=== PATIENT | male | born 1960 | race Hispanic/Latino ===

== ENCOUNTER → 2017-10-27 | Outpatient (CLI) | payer OTHER ==
[~2017-10-27] MED LIST: ASPIRIN ENTERI325 MG PO; ATROVENT HFA12.9 GM; ATROVENT HFA12.9 GM INH; CARVEDILOL12.5 MG PO; CATAPRES0.3 MG PO; CLONIDINE HCL0.3 MG PO; COREG3.125 MG PO; DIGOXIN125 MCG PO; DOXYCYCLINE HY100 M3 PO; FLOMAX0.4 MG PO; FLONASE16 GM; HYDRALAZINE HCL25 MG PO; IMDUR30 MG PO; ISOSORBIDE MONO30 MG PO; LASIX20 MG PO; LIPITOR40 MG PO; LISINOPRIL10 MG PO; METOPROLOL TART50 MG PO; MUCINEX600 MG PO; NITROGLYCERIN0.4 MG SL; NITROSTAT0.4 MG SL; NORCO 10MG-325MG1 EA PO; NORVASC10 MG PO; OMEPRAZOLE40 MG PO; PAXIL10 MG PO; PEPCID20 MG PO; PLAVIX75 MG PO; POTASSIUM CHLO20 ME1 PO; RANEXA500 MG PO; SENNA-DOCUSATE1 EACH PO; SINGULAIR10 MG PO; TESSALON PERLE100 MG PO; XANAX2 MG PO; XOPENEX0.31 MG/3 INH
== END ==
LOC: DX 13:27 → EDSTATUS 10-28 11:00
PROVIDERS: ATTEND Internal Medicine Gastroenterology
DX: Z01.818 Encounter for other preprocedural examination (principal); Z53.8 Procedure and treatment not carried out for other reasons; Z12.11 Encounter for screening for malignant neoplasm of colon; I10 Essential (primary) hypertension; B18.2 Chronic viral hepatitis C; E66.9 Obesity, unspecified; Z71.3 Dietary counseling and surveillance; Z86.010 Personal history of colon polyps
CPT/HCPCS: 93005

== ENCOUNTER 2018-10-22 11:52 | Inpatient (IN) | payer MEDICARE, OTHER ==
[~2018-10-22] VITALS: Ht 162.6 cm; Wt 93.9 kg
--- OUTSIDE RECORDS SUMMARY | 2018-10-22 11:56 | XMS REPORT | Clinical Summary ---
Author Author [facility] Organization [facility] Address Unknown Phone Unavailable Care Team Providers Care Product Safety Test Engineer Name Role Phone PCP Unavailable Allergies Comments Active Allergy Reactions Severity Noted Date No Known Drug Allergies 06/18/2009 Medications End Date Status Medication Sig Dispensed Refills Start Date Active Alprazolam 2 mg Take 3 mg by 0 disintegrating tablet mouth 2 times daily as needed for Anxiety. Active fenofibrate (LOFIBRA) 160 Take 160 mg 0 mg tablet by mouth daily. Active furosemide (LASIX) 40 mg Take 40 mg by 0 tablet mouth 2 times daily. Active sucralfate (CARAFATE) 1 Take 1 g by 0 gram tablet mouth 4 times daily. Active budesonide-formoterol Inhale 2 0 (SYMBICORT) 160-4.5 Puffs by mcg/actuation inhaler mouth 2 times daily. Active carisoprodol 350 mg Take 350 mg 0 tablet by mouth 2 times daily. Active nitroGLYCERIN (NITROSTAT) Dissolve 1 30 tablet 0 0.4 mg sublingual tablet under 8 tabletIndications: the tongue Precordial chest pain every 5 minutes as needed, up to 3 times. If chest pain persists, call 911. 01/05/2018 Discontinued carvedilol (COREG) 25 mg Take 25 mg by 0 tablet mouth 2 times daily (with meals). 01/05/2018 Discontinued lisinopril (PRINIVIL, Take 20 mg by 0 ZESTRIL) 20 mg tablet mouth daily. 01/05/2018 Discontinued hydrALAZINE (APRESOLINE) Take 50 mg by 0 50 mg tablet mouth 3 times daily. 01/05/2018 Discontinued clopidogrel (PLAVIX) 75 Take 75 mg by 0 mg tablet mouth daily. 01/05/2018 Discontinued atorvastatin (LIPITOR) 80 Take 80 mg by 0 mg tablet mouth at bedtime nightly. 01/05/2018 Discontinued isosorbide mononitrate Take 60 mg by 0 (IMDUR) 60 mg extended mouth daily. release tablet 01/05/2018 Discontinued cloNIDine HCl (CATAPRES) Take 0.1 mg 0 0.1 mg tablet by mouth 2 times daily. 01/05/2018 Discontinued digoxin (LANOXIN) 250 mcg Take 250 mcg 0 tablet by mouth daily Take 1/2 tab by mouth daily . 01/05/2018 Discontinued amLODIPine (NORVASC) 10 Take 10 mg by 0 mg tablet mouth daily. 04/06/2018 aspirin (ASPIRIN) 81 mg Chew and 90 tablet 0 chewable swallow 1 8 tabletIndications: tablet by Precordial chest pain mouth daily for 90 days. 04/05/2018 atorvastatin (LIPITOR) 80 Take 1 tablet 90 tablet 0 mg tabletIndications: by mouth at 8 Precordial chest pain bedtime nightly for 90 days. 04/05/2018 carvedilol (COREG) 25 mg Take 1 tablet 180 tablet 0 tabletIndications: by mouth 2 8 Precordial chest pain times daily (with meals) for 90 days. 04/05/2018 clopidogrel (PLAVIX) 75 Take 1 tablet 90 tablet 0 mg tabletIndications: by mouth 8 Precordial chest pain daily for 90 days. 02/04/2018 digoxin (LANOXIN) 250 mcg Take 0.5 15 tablet 0 tabletIndications: tablets by 8 Precordial chest pain mouth daily for 30 days Take 1/2 tab by mouth daily . 04/05/2018 hydrALAZINE (APRESOLINE) Take 1 tablet 270 tablet 0 50 mg tabletIndications: by mouth 3 8 Precordial chest pain times daily for 90 days. 04/05/2018 isosorbide mononitrate Take 1 tablet 90 tablet 0 (IMDUR) 60 mg extended by mouth 8 release daily for 90 tabletIndications: days. Precordial chest pain 01/05/2018 Discontinued nitroGLYCERIN (NITROSTAT) Dissolve 1 100 tablet 1 0.4 mg sublingual tablet under 8 tabletIndications: the tongue Precordial chest pain every 5 minutes as needed, up to 3 times. If chest pain persists, call 911. 04/05/2018 lisinopril (ZESTRIL) 2.5 Take 1 tablet 90 tablet 0 201 mg tabletIndications: by mouth 8 Precordial chest pain daily for 90 days. 04/05/2018 ranolazine (RANEXA) 500 Take 1 tablet 180 tablet 0 201 mg extended release by mouth 2 8 tabletIndications: times daily Precordial chest pain for 90 days. 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 Cardiomyopathy 01/02/2018 Precordial chest pain Right upper quadrant abdominal pain Unstable angina Anxiety Essential hypertension Encounters Care Team Description Date Type Specialty Luigi Quintana 01/05/2018 Orders Only Cardiology Jus Chritsianson MD Medrano, Vanessa N, Physician Precordial chest pain (Primary Dx); Right upper quadrant abdominal pain; Unstable angina; Coronary artery disease involving [place] coronary artery of [place] heart with angina pectoris 01/02/2018 Emergency - 01/05/2018 after 10/21/2017 Immunizations Name Dates Previously Given Next Due Influenza Vaccine 01/03/2018 (Deferred: Other - Outside flu season) PNEUMOCOCCAL 23-VALPS 01/03/2018 (Deferred: Patient Refused) VACCINE 25 MCG/0.5 ML INJECTION Social History Date Tobacco Use Types Packs/Day Years Used Former Smoker Alcohol Use Drinks/Week oz/Week Comments Yes Sex Assigned at Date Recorded Not on file Industry Job Start Date Occupation Not on file Not on file Not on file Travel End Travel History Travel Start No recent travel history available. Last Filed Vital Signs Time Taken Vital Sign Reading 01/05/2018 11:08 AM CDT Blood Pressure 151/109 01/05/2018 11:08 AM CDT Pulse 63 01/05/2018 11:08 AM CDT Temperature 36.6 C (97.9 F) 01/05/2018 11:08 AM CDT Respiratory Rate 13 01/05/2018 7:43 AM CDT Oxygen Saturation 98% - Inhaled Oxygen - Concentration 01/05/2018 3:25 AM CDT Weight 83.7 kg (184 lb 8 oz) 01/03/2018 12:44 AM CDT Height 162.6 cm (5' 4") 01/03/2018 12:44 AM CDT Body Mass Index 31.67 Plan of Treatment Health Maintenance Due Date Last Done Comments Colorectal Cancer Scrn 2010 Annual (FIT/FOBT) Age 50 to 75 IMM Influenza Seasonal 05/10/2018May to October (>/=19 yrs) CORONARY ARTERY DISEASE 01/04/2019 01/04/2018, 06/18/2009 AGE 18 AND UP Procedures Comments Procedure Name Priority Date/Time Associated Diagnosis PTT Routine 01/05/2018 10:20 AM CDT TRANSTHORACIC ECHO (TTE) 01/05/2018 8:42 AM CDT CONSULT CLINICAL CASE Routine 01/05/2018 MANAGEMENT (RN/SW) 8:24 AM CDT PTT Routine 01/05/2018 1:30 AM CDT MAGNESIUM Routine 01/05/2018 1:30 AM CDT BASIC METABOLIC PANEL Routine 01/05/2018 1:30 AM CDT CBC/DIFF Routine 01/05/2018 1:30 AM CDT PTT Routine 01/04/2018 6:40 PM CDT MAGNESIUM STAT 01/04/2018 6:40 PM CDT BASIC METABOLIC PANEL STAT 01/04/2018 6:40 PM CDT PTT Routine 01/04/2018 11:00 AM CDT CBC/DIFF Routine 01/04/2018 4:45 AM CDT TSH Routine 01/04/2018 4:45 AM CDT HEMOGLOBIN A1C Routine 01/04/2018 4:45 AM CDT LIPID PROFILE Routine 01/04/2018 4:45 AM CDT MAGNESIUM Routine 01/04/2018 4:45 AM CDT BASIC METABOLIC PANEL Routine 01/04/2018 4:45 AM CDT PTT Routine 01/04/2018 4:45 AM CDT 12 LEAD EKG Routine 01/04/2018 3:24 AM CDT PTT Routine 01/03/2018 5:40 PM CDT MAGNESIUM Routine 01/03/2018 5:40 PM CDT BASIC METABOLIC PANEL Routine 01/03/2018 5:40 PM CDT URINE DRUG SCREEN Routine 01/03/2018 11:20 AM CDT PTT Routine 01/03/2018 11:20 AM CDT INFUSION PUMP STAT 01/03/2018 10:26 AM CDT TROPONIN I STAT 01/03/2018 8:32 AM CDT 12 LEAD EKG Routine 01/03/2018 8:29 AM CDT TROPONIN I Routine 01/03/2018 2:00 AM CDT MAGNESIUM Routine 01/03/2018 2:00 AM CDT BASIC METABOLIC PANEL Routine 01/03/2018 2:00 AM CDT 12 LEAD EKG Routine 01/02/2018 8:45 PM CDT TROPONIN I POC Routine 01/02/2018 8:15 PM CDT U/S ABDOMEN LIMITED STAT 01/02/2018 Right upper quadrant 7:25 PM CDT abdominal pain UA CHEMISTRIES STAT 01/02/2018 6:06 PM CDT XRAY CHEST 1 VIEW STAT 01/02/2018 Precordial chest pain 5:17 PM CDT 12 LEAD EKG Routine 01/02/2018 5:16 PM CDT POCT BNP (BRAIN Routine 01/02/2018 NATRIURETIC PEPTIDE) 5:13 PM CDT CBC/DIFF Routine 01/02/2018 5:00 PM CDT TROPONIN I STAT 01/02/2018 5:00 PM CDT BMP POC Routine 01/02/2018 4:51 PM CDT TROPONIN I POC Routine 01/02/2018 4:48 PM CDT DIGOXIN Routine 01/02/2018 4:45 PM CDT CBC/DIFF Routine 01/02/2018 4:45 PM CDT LIPASE STAT 01/02/2018 4:45 PM CDT LIVER PROFILE STAT 01/02/2018 4:45 PM CDT 12 LEAD EKG Routine 01/02/2018 4:35 PM CDT after 10/21/2017 Results * PTT (01/05/2018 10:20 AM CDT) Only the most recent of 7 results within the time period is included. PTT 86.6 (H) 23.6 - 36.4 Seconds BT MAIN-STATION 3 Specimen Blood Performing Organization Address City/State/Zipcode Phone Number MISYS BT MAIN-STATION 3 * TRANSTHORACIC ECHO (TTE) (01/05/2018 8:42 AM CDT) TRANSTHORACIC Transthoracic SMS ECHO (TTE) Echo Report MARYA MILLAN Age:57 Gender: M :1960 Exam Date: 01/05/2018 08:42 Exam Location: [facility] Echo Ordering Phys: MARKOS BOND ([email or web address]/[email or web address]) Referring Phys:[id number], SLIME Reading Phys:Win Blanco MD Fellow Phys: Fellow Phys: Water Pollution Specialist: Luigi Quintana Reason For Exam: Indications: Cardiomyopathy ICD-9 Codes: I42.3 Exam Type: TRANSTHORACIC ECHO (TTE) Procedure CPT:20861 Addtional CPT: Ht (in): 64 BSA: 1.97HR: 65 Rhythm: Paced rhythm Wt (lb): 184BP: 149/ 101 Technical Quality: Technically difficult study History: evaluate cardiomyopathy MEASUREMENTS(Male / Female) Normal Values 2D ECHO LV Diastolic Diameter PLAX6.4 cm 4.2 - 5.9 / 3.9 - 5.3 cm LV Systolic Diameter PLAX 6.1 cm 2.1 - 4.0 cm LV Fractional Shortening PLAX 4.9 % 25 - 46% IVS Diastolic Thickness 1.7 cm LVPW Diastolic Thickness1 .7 cm LV Relative Wall Thickness0.53 LVOT Diameter 2.4 cm Aortic Root Diameter 3.3 cm LA Volume 117 cm 18 - 58 / 22 - 52 cm LA Volume Index 59.5 cm/m 16 - 28 cm/m RA Area 22.6 cm DOPPLER LVOT Peak Velocity 60.2 cm/s LVOT Peak Gradient 1.4 mmHg LVOT Mean Velocity 35 cm/s LVOT Mean Gradient 0.49 mmHg LVOT Velocity Time Integral 9.9 cm LVOT Stroke Volume 45 cm Mitral E Point Velocity 64.5 cm/s LV E' Lateral Velocity 1.8 cm/s Mitral E to LV E' Lateral Ratio 35 FINDINGS Left Ventricle [place] is foreshortened. Severe left ventricular dilatation. Left ventricular wall thickness severely increased. Severely reduced global left ventricular systolic function. Left ventricular ejection fraction is less than 20%. Severe global hypokinesis. Impaired relaxation, increased LV filling pressures. False chordae in the left ventricle (normal variant). Prominent left ventricular trabeculations. Due to foreshortening of the apex, cannot evaluate for LV thrombus. Right Ventricle Right ventricular dilatation. Severely reduced right ventricular global systolic function. Device lead in the right ventricular cavity. Right Atrium Right atrial dilatation. Device lead in the right atrial cavity. Left Atrium Severe left atrial dilatation. 60 cc/m2. IAS Mitral Valve Some tenting of the MV leaflets due LV dilation. Mild mitral regurgitation. Aortic Valve The aortic valve is trileaflet and opens well. Tricuspid Valve Grossly normal tricuspid valve. Insufficient TR jet to estimate pulmonary artery systolic pressure. Pulmonic Valve Structurally normal pulmonic valve. Mild pulmonic regurgitation (normal variant). Pericardium Trace pericardial effusion. Aorta Normal size aortic root. IVC IVC is normal in size. RA pressure is 5-10 mmHg. CONCLUSIONS Compared to the study report from 2009, the LVEF is now even more reduced and RV function is now more reduced as well. 1. [place] is foreshortened. Severe left ventricular dilatation. Left ventricular wall thickness severely increased. Severely reduced global left ventricular systolic function. Left ventricular ejection fraction is less than 20%. Severe global hypokinesis. Impaired relaxation, increased LV filling pressures. False chordae in the left ventricle (normal variant). Prominent left ventricular trabeculations. Due to foreshortening of the apex, cannot evaluate for LV thrombus. 2. Right ventricular dilatation. Severely reduced right ventricular global systolic function. Device lead in the right ventricular cavity. 3. Biatrial dilation. 4. Mild MR and OK. 5. Trace pericardial effusion. Win Blanco MD Edited by:Win Blanco MD (Electronically Signed) Final Date:05 Jan 2018 14:52 2D ECHO LV Diastolic Diameter PLAX6.4 cm 4.2 - 5.9 / 3.9 - 5.3 cm LV Systolic Diameter PLAX 6.1 cm 2.1 - 4.0 cm LV Fractional Shortening PLAX 4.9 % 25 - 46% IVS Diastolic Thickness 1.7 cm LVPW Diastolic Thickness1 .7 cm LV Relative Wall Thickness0.53 LVOT Diameter 2.4 cm Aortic Root Diameter 3.3 cm LA Volume 117 cm 18 - 58 / 22 - 52 cm LA Volume Index 59.5 cm/m 16 - 28 cm/m RA Area 22.6 cm DOPPLER LVOT Peak Velocity 60.2 cm/s LVOT Peak Gradient 1.4 mmHg LVOT Mean Velocity 35 cm/s LVOT Mean Gradient 0.49 mmHg LVOT Velocity Time Integral 9.9 cm LVOT Stroke Volume 45 cm Mitral E Point Velocity 64.5 cm/s LV E' Lateral Velocity 1.8 cm/s Mitral E to LV E' Lateral Ratio 35 Performing Organization Address City/[facility] HospitalBluFrog Path Lab Solutionsmn Phone Number SMS * MAGNESIUM (01/05/2018 1:30 AM CDT) Only the most recent of 5 results within the time period is included. Magnesium 2.1 1.9 - 2.7 mg/dL BT MAIN-STATION 1 Performing Organization Address City/[facility] Phone Number MISYS BT MAIN-STATION 1 * CBC/DIFF (01/05/2018 1:30 AM CDT) Only the most recent of 4 results within the time period is included. WBC 6.2 4.5 - 12.0 K/uL BT MAIN-STATION 2 RBC 5.23 4.60 - 6.20 M/uL BT MAIN-STATION 2 Hemoglobin 15.9 14.0 - 18.0 g/dL BT MAIN-STATION 2 Hematocrit 48.2 40.0 - 54.0 % BT MAIN-STATION 2 MCV 92 82 - 92 fL BT MAIN-STATION 2 MCH 30.4 27.0 - 31.0 pg BT MAIN-STATION 2 MCHC 33.0 32.0 - 36.0 g/dL BT MAIN-STATION 2 RDW 46.2 (H) 35.1 - 43.9 fL BT MAIN-STATION 2 Platelet 266 150 - 400 K/uL BT MAIN-STATION 2 Mean Platelet 10.8 9.4 - 12.4 fL BT MAIN-STATION Volume 2 Percent NRBC 0.0 BT MAIN-STATION 2 Absolute NRBC 0.00 BT MAIN-STATION 2 Neutrophil 58.2 34.0 - 67.9 % BT MAIN-STATION 2 Lymphocyte 24.5 21.8 - 50.0 % BT MAIN-STATION 2 Monocyte 12.8 (H) 5.3 - 12.0 % BT MAIN-STATION 2 Eosinophil 3.4 0.8 - 5.0 % BT MAIN-STATION 2 Basophil 0.8 0.2 - 1.2 % BT MAIN-STATION 2 Pct Immat Gran 0.3 0.0 - 0.5 BT MAIN-STATION 2 Neutrophil, Abs 3.63 1.78 - 5.36 K/uL BT MAIN-STATION 2 Lymphocyte, Abs 1.53 1.32 - 3.57 K/uL BT MAIN-STATION 2 Monocyte, Abs 0.80 0.30 - 0.82 K/uL BT MAIN-STATION 2 Eosinophil, Abs 0.21 0.04 - 0.54 K/uL BT MAIN-STATION 2 Basophil, Abs 0.05 0.01 - 0.08 K/uL BT MAIN-STATION 2 Absol Immat 0.02 0.00 - 0.03 K/uL BT MAIN-STATION Gran 2 Performing Organization Address City/State/Zipcode Phone Number MISYS BT MAIN-STATION 2 * BASIC METABOLIC PANEL (01/05/2018 1:30 AM CDT) Only the most recent of 5 results within the time period is included. [facility] Signature CO2 27 21 - 31 mmol/L BT MAIN-STATION 1 Chloride 101 98 - 107 mmol/L BT MAIN-STATION 1 Potassium 3.9 3.5 - 5.1 mmol/L BT MAIN-STATION 1 Sodium 138 136 - 145 mmol/L BT MAIN-STATION 1 Glucose 93 70 - 110 mg/dL BT MAIN-STATION 1 Urea Nitrogen 29 (H) 7 - 25 mg/dL BT MAIN-STATION 1 Creatinine 1.60 (H) 0.7 - 1.3 mg/dL BT MAIN-STATION 1 Anion Gap 10 BT MAIN-STATION 1 Calcium 9.2 8.6 - 10.3 mg/dL BT MAIN-STATION 1 GFR, Estimated 45 mL/min/1.73 m2 BT MAIN-STATION 1 GFR, Estim, 54 mL/min/1.73 m2 BT MAIN-STATION Afr-Am 1 Performing Organization Address [facility]n Phone Number MISYS BT MAIN-STATION 1 * HEMOGLOBIN A1C (01/04/2018 4:45 AM CDT) Hemoglobin A1c 5.7 4.3 - 6.1 % BT DIAGNOSTIC IMMUNOLOGY Est Average 116.9 mg/dL BT DIAGNOSTIC Gluc IMMUNOLOGY Specimen Blood Performing Organization Address [facility] Phone Number MISYS BT DIAGNOSTIC IMMUNOLOGY * TSH (01/04/2018 4:45 AM CDT) TSH 1.36 0.57 - 3.74 uIU/mL BT MAIN-STATION 1 Specimen Blood Performing Organization Address [facility] Phone Number MISYS BT MAIN-STATION 1 * LIPID PROFILE (01/04/2018 4:45 AM CDT) Cholesterol 133 mg/dL BT MAIN-STATION Comment: 1 REFERENCE RANGE: Desirable: <200 mg/dL Borderline: 200-240 mg/dL High Risk: >240 mg/dL Triglyceride 149 <150 mg/dL BT MAIN-STATION Comment: 1 REFERENCE RANGE: Normal: <150 mg/dL Borderline High: 150-199 mg/dL High: 200-499 mg/dL Very High: >cx=498 mg/dL HDL 47 mg/dL BT MAIN-STATION Comment: 1 Increased CHD risk: <40 mg/dL Decreased CHD risk: >60 mg/dL LDL 56 mg/dL BT MAIN-STATION Comment: 1 REFERENCE RANGE: Optimal: <100 mg/dL Near Optimal: 100-129 mg/dL Borderline High: 130-159 mg/dL High: 160-189 mg/dL Very High: >ph=467 mg/dL Specimen Blood Performing Organization Address [facility] Phone Number MISYS BT MAIN-STATION 1 * 12 LEAD EKG (01/04/2018 3:24 AM CDT) 12 LEAD EKG FOR [facility] Test Date:2018-01-04 Pat Name: MARYA MILLAN Department: Room: Gender: Combine Inspector: [id number] :1960-1 08-30 Requested By: Order Number: Marcos sharma MD: Lilliam Burch M.D. Measurements Intervals Ola Rate: 68 P:45 OK: 153 QRS: 255 QRSD: 162 T: 75 QT: 466 QTc:499 Interpretive Statements ELECTRONIC VENTRICULAR PACEMAKER ABNORMAL RHYTHM ECG Electronically Signed On 01-04-18 06:16:53 CDT by Lilliam Burch M.D. Performing Organization Address [facility]code Phone Number SMS * URINE DRUG SCREEN (01/03/2018 11:20 AM CDT) Amphetamine Negative NEG BT MAIN-STATION Comment: 1 Calibrated Standard: D-Methamphetamine Positive if urine level >yp=6518 ng/mL Test performed on [id number] using EMIT Immunoassay Barbiturate Negative NEG BT MAIN-STATION Comment: 1 Calibrated Standard: Secobarbital Positive if urine level is >ea=067 ng/mL Test performed on [id number] using EMIT Immunoassay Benzodiazepine Positive (A) NEG BT MAIN-STATION Comment: 1 Calibrated Standard: Lormethazepam Positive if urine level is >gg=611 ng/mL Test performed on [id number] using EMIT Immunoassay Cannabinoid Negative NEG BT MAIN-STATION Comment: 1 Calibrated Standard: 11 nor-delta(9)-THC carboxylic a Positive if urine level >or=50 Test performed on [id number] using EMIT Immunoassay Cocaine Negative NEG BT MAIN-STATION Comment: 1 Calibrated Standard: Benzoylecgonine Positive if urine level >zu=191 Test performed on [id number] using EMIT Immunoassay Opiate, Ur Positive (A) NEG BT MAIN-STATION Comment: 1 Calibrated Standard: Morphine Positive if urine level >jg=149 Test performed on [id number] using EMIT Immunoassay PCP Negative NEG BT MAIN-STATION Comment: 1 Calibrated Standard: Phencyclidine Positive if urine level >or=25 Test performed on [id number] using EMIT Immunoassay Urine Toxicology Screen results are to be used only for Medical purposes. Specimen Urine Performing Organization Address City/[facility]code Phone Number MISYS BT MAIN-STATION 1 * TROPONIN I (01/03/2018 8:32 AM CDT) Only the most recent of 3 results within the time period is included. Troponin I 0.06 (H) <0.04 ng/mL BT MAIN-STATION 1 Specimen Blood Performing Organization Address [facility] Phone Number MISYS BT MAIN-STATION 1 * 12 LEAD EKG (01/03/2018 8:29 AM CDT) 12 LEAD EKG FOR [facility] Test Date:2018-01-03 Pat Name: MARYA MILLAN Department: Room: Gender: Combine Inspector: LILLIEJU[place] [id number] :1959-08 Requested By: Order Number: Marcos sharma MD: Lilliam Burch M.D. Measurements Intervals Ola Rate: 66 P:48 OK: 156 QRS: 249 QRSD: 160 T: 71 QT: 491 QTc:515 Interpretive Statements ELECTRONIC VENTRICULAR PACEMAKER ABNORMAL RHYTHM ECG Electronically Signed On 01-03-18 12:06:36 CDT by Lilliam Burch M.D. Performing Organization Address [facility] Phone Number SMS * 12 LEAD EKG (01/02/2018 8:45 PM CDT) 12 LEAD EKG FOR [facility] Test Date:2018-01-02 Pat Name: MARYA MILLAN Department: Room: Gender: M Combine Inspector: [id number] :1959-08 Requested By: Order Number: Marcos sharma MD: jose jimenez Measurements Intervals Ola Rate: 77 P:66 OK: 156 QRS: -65 QRSD: 149 T: 69 QT: 449 QTc:511 Interpretive Statements ELECTRONIC VENTRICULAR PACEMAKER ABNORMAL RHYTHM ECG Electronically Signed On 01-05-18 16:21:40 CDT by jose jimenez Performing Organization Address [facility] Phone Number [facility] * TROPONIN I POC (01/02/2018 8:15 PM CDT) Only the most recent of 2 results within the time period is included. Troponin POC 0.06 0.00 - 0.08 ng/mL BT MAIN-STATION 1 Performing Organization Address City/State/Zipcode Phone Number MISYS BT MAIN-STATION 1 * U/S ABDOMEN LIMITED (01/02/2018 7:25 PM CDT) Impressions Performed At IMPRESSION: SMS 1. A 0.7 cm stone in the upper pole of the kidney. No hydronephrosis. 2. Increased hepatic echogenicity most commonly seen in hepatic steatosis 3. Mild gallbladder adenomyomatosis. If the report is "FINALIZED" it indicates that the attending/staff radiologist has reviewed the images and agrees with the resident's interpretation. Dictated By: Jaime Ashraf MD, 01/02/2018 7:36 PM I have reviewed the study and agree with the findings in this report. Signed By: Rivka Medellin MD, 01/02/2018 11:10 PM Narrative Performed At EXAM: Right Upper Quadrant Ultrasound SMS INDICATION: right upper qudarant pain COMPARISON: None. TECHNIQUE: Transverse and longitudinal images of the right upper abdomen were obtained. FINDINGS: Liver: Size: 15.5 cm in the right midclavicular line, normal Appearance: Increased echogenicity, smooth contour Mass: No focal masses Gallbladder: Stones/Sludge: None Wall: 0.2 cm Appearance: No pericholecystic fluid or hydrops. Echogenic ring down artifacts of the proximal wall. Sonographic Iraheta's Sign: Negative Bile Ducts: Intrahepatic Ducts: No dilatation Extrahepatic Ducts: Common bile duct measures 0.4 cm, no dilatation Pancreas: Incompletely visualized due to overlying bowel gas, but no abnormality identified involving the visualized portions of the pancreas. Right Kidney: Size: (0.5 cm Echogenicity: Normal Parenchymal thickness: Normal Collecting system: No hydronephrosis Stones: 0.7 x 0.7 x 0.7 cm shadowing echogenic focus in the upper pole with twinkle artifact Cyst/Mass: None Vessels: Aorta: Visualized portions are normal Inferior Vena Cava: Visualized portions are normal Main Portal Vein: 1 cm, normal size with hepatopetal flow. Free Fluid: No ascites or pleural effusion Procedure Note Interface, Rad/Mammog In - 01/02/2018 11:15 PM CDT EXAM: Right Upper Quadrant Ultrasound INDICATION: right upper qudarant pain COMPARISON: None. TECHNIQUE: Transverse and longitudinal images of the right upper abdomen were obtained. FINDINGS: Liver: Size: 15.5 cm in the right midclavicular line, normal Appearance: Increased echogenicity, smooth contour Mass: No focal masses Gallbladder: Stones/Sludge: None Wall: 0.2 cm Appearance: No pericholecystic fluid or hydrops. Echogenic ring down artifacts of the proximal wall. Sonographic Iraheta's Sign: Negative Bile Ducts: Intrahepatic Ducts: No dilatation Extrahepatic Ducts: Common bile duct measures 0.4 cm, no dilatation Pancreas: Incompletely visualized due to overlying bowel gas, but no abnormality identified involving the visualized portions of the pancreas. Right Kidney: Size: (0.5 cm Echogenicity: Normal Parenchymal thickness: Normal Collecting system: No hydronephrosis Stones: 0.7 x 0.7 x 0.7 cm shadowing echogenic focus in the upper pole with twinkle artifact Cyst/Mass: None Vessels: Aorta: Visualized portions are normal Inferior Vena Cava: Visualized portions are normal Main Portal Vein: 1 cm, normal size with hepatopetal flow. Free Fluid: No ascites or pleural effusion IMPRESSION IMPRESSION: 1. A 0.7 cm stone in the upper pole of the kidney. No hydronephrosis. 2. Increased hepatic echogenicity most commonly seen in hepatic steatosis 3. Mild gallbladder adenomyomatosis. If the report is "FINALIZED" it indicates that the attending/staff radiologist has reviewed the images and agrees with the resident's interpretation. Dictated By: Jaime Ashraf MD, 01/02/2018 7:36 PM I have reviewed the study and agree with the findings in this report. Signed By: Rivka Medellin MD, 01/02/2018 11:10 PM Performing Organization Address City/State/Zipcode Phone Number SMS * UA CHEMISTRIES (01/02/2018 6:06 PM CDT) Color Yellow BT MAIN-STATION 3 Clarity Clear BT MAIN-STATION 3 Spec Freeman 1.015 1.001 - 1.035 BT MAIN-STATION 3 pH 7.0 5 - 8 BT MAIN-STATION 3 Protein 2+ (A) NEG BT MAIN-STATION 3 Glucose Negative NEG BT MAIN-STATION 3 Ketone Negative NEG BT MAIN-STATION 3 Bilirubin Negative NEG BT MAIN-STATION 3 Nitrate Negative NEG BT MAIN-STATION 3 Urobilinogen <1.0 0.2 - 1.0 EU/dL BT MAIN-STATION 3 Leukocyte Negative NEG BT MAIN-STATION 3 Blood Negative NEG BT MAIN-STATION 3 RBC <1 0 - 4 /HPF BT MAIN-STATION 3 Mucous Present BT MAIN-STATION 3 Specimen Urine Performing Organization Address City/State[facility] Phone Number [facility] BT [facility] 3 * XRAY CHEST 1 VIEW (01/02/2018 5:17 PM CDT) Impressions Performed At IMPRESSION: SMS 1.Mild enlargement of cardiac silhouette. 2.Left retrocardiac opacity could represent atelectasis. If the report is "FINALIZED" it indicates that the attending/staff radiologist has reviewed the images and agrees with the resident's interpretation. Dictated By: Radha Car MD, 01/02/2018 7:25 PM I have reviewed the study and agree with the findings in this report. Signed By: Rivka Medellin MD, 01/02/2018 9:41 PM Narrative Performed At EXAM: Single AP view of the chest (Shock room). SMS COMPARISON: Chest radiograph 06/17/2009 INDICATION:chest pain FINDINGS: Single AP view of the chest. Examination is limited by AP technique. Lines/tubes: Left chest wall 3-lead cardiac device with leads project over coronary sinus, right ventricle, and left ventricle. The visualized bones and soft tissues appear unremarkable. Procedure Note Interface, Rad/Mammog In - 01/02/2018 9:46 PM CDT EXAM: Single AP view of the chest (Shock room). COMPARISON: Chest radiograph 06/17/2009 INDICATION: chest pain FINDINGS: Single AP view of the chest. Examination is limited by AP technique. Lines/tubes: Left chest wall 3-lead cardiac device with leads project over coronary sinus, right ventricle, and left ventricle. The visualized bones and soft tissues appear unremarkable. IMPRESSION IMPRESSION: 1. Mild enlargement of cardiac silhouette. 2. Left retrocardiac opacity could represent atelectasis. If the report is "FINALIZED" it indicates that the attending/staff radiologist has reviewed the images and agrees with the resident's interpretation. Dictated By: Radha Car MD, 01/02/2018 7:25 PM I have reviewed the study and agree with the findings in this report. Signed By: Rivka Medellin MD, 01/02/2018 9:41 PM Performing Organization Address City/State[facility] Phone Number SMS * 12 LEAD EKG (01/02/2018 5:16 PM CDT) 12 LEAD EKG FOR [facility] Test Date:2018-01-02 Pat Name: MARYA MILLAN Department: Room: Gender: M Combine Inspector: [id number] :1960-1 08-30 Requested By: Order Number: Marcos sharma MD: Markos Bond Measurements Intervals Ola Rate: 70 P:49 OK: 196 QRS: 6 QRSD: 133 T: -87 QT: 467 QTc:505 Interpretive Statements SINUS RHYTHM POSSIBLE LEFT ATRIAL ENLARGEMENT INTRAVENTRICULAR CONDUCTION DELAY LATERAL MYOCARDIAL INFARCTION, OF INDETERMINATE AGE Electronically Signed On 01-02-18 18:08:23 CDT by Markos Bond Performing Organization Address City/[facility] Phone Number [facility] * POCT BNP (BRAIN NATRIURETIC PEPTIDE) (01/02/2018 5:13 PM CDT) B Natr Pept POC 590 (H) 0 - 100 pg/mL BT MAIN-STATION 1 Performing Organization Address City/[facility] Phone Number MISYS BT MAIN-ST[facility] 1 * BMP POC (01/02/2018 4:51 PM CDT) CO2 POC 28Comment: Physician Notified 21 - 32 mmol/L BT MAIN-STATION 1 Chloride POC 104 98 - 107 mmol/L BT MAIN-STATION 1 Potassium POC 4.0 3.50 - 5.10 mmol/L BT MAIN-STATION 1 Sodium POC 143 136 - 145 mmol/L BT MAIN-STATION 1 Glucose POC 100 74 - 106 mg/dL BT MAIN-STATION 1 Urea Nitrogen 31 (H) 7 - 18 mg/dL BT MAIN-STATION POC 1 Creatinine POC 1.8 (H) 0.6 - 1.3 mg/dL BT MAIN-STATION 1 Calcium Ionized 1.20 1.15 - 1.29 mmol/L BT MAIN-STATION POC 1 Hemoglobin POC 15.3 14.0 - 18.0 g/dL BT MAIN-STATION 1 Hematocrit POC 45.0 40.0 - 54.0 % BT MAIN-STATION 1 GFR, Estimated 39 mL/min/1.73 m2 BT MAIN-STATION 1 GFR, Estim, 47 mL/min/1.73 m2 BT MAIN-STATION Afr-Am 1 Performing Organization Address City/[facility] Phone Number [facility] BT [facility]IN-[facility] 1 * LIVER PROFILE (01/02/2018 4:45 PM CDT) T Protein 6.2 6.0 - 8.3 g/dL BT MAIN-STATION 1 Albumin 3.5 (L) 4.2 - 5.5 g/dL BT MAIN-STATION 1 T Bilirubin 0.4 0.2 - 1.2 mg/dL BT MAIN-STATION 1 Alk Phos 85 34 - 104 U/L BT MAIN-STATION 1 AST 18 13 - 39 U/L BT MAIN-STATION 1 ALT 19 7 - 52 U/L BT MAIN-STATION 1 D Bilirubin 0.1 0.0 - 0.2 mg/dL BT MAIN-STATION 1 Specimen Blood Performing Organization Address City/[facility] Phone Number [facility] BT [facility]IN-ST[facility] 1 * LIPASE (01/02/2018 4:45 PM CDT) Lipase 56 11 - 82 U/L BT MAIN-STATION 1 Specimen Blood Performing Organization Address City/[facility] Phone Number [facility] BT [facility]IN-ST[facility] 1 * DIGOXIN (01/02/2018 4:45 PM CDT) Digoxin <0.3 (L) 0.80 - 2.00 ng/mL BT MAIN-STATION 3 Performing Organization Address City/[facility] Phone Number MISYS BT MAIN-STATION 3 * 12 LEAD EKG (01/02/2018 4:35 PM CDT) 12 LEAD EKG FOR SMS [facility] Test Date:2018-01-02 Pat Name: MARYA MILLAN Department: Room: Gender: M Combine Inspector: [id number] :1960-1 08-30 Requested By: Order Number: Marcos sharma MD: Markos Bond Measurements Intervals Ola Rate: 80 P:70 OK: 202 QRS: 75 QRSD: 125 T: -81 QT: 428 QTc:496 Interpretive Statements SINUS RHYTHM POSSIBLE LEFT ATRIAL ENLARGEMENT LATERAL MYOCARDIAL INFARCTION, OF INDETERMINATE AGE MODERATE T-WAVE ABNORMALITY, CONSIDER INFERIOR ISCHEMIA Electronically Signed On 01-02-18 18:08:36 CDT by Markos Bond Performing Organization Address City/State/[facility] Phone Number [facility] after 10/21/2017 Insurance Type Payer Benefit Subscriber ID Effective Phone Address Plan / Dates Group [facility] xxxxxxxxx 2017-P [phone] [address] MEDICARE resent [id number] [place] [address] [facility] SELF-PAY [facility] PLAN xxxxxx 2018- [id number] [place] [address] Advance Directives For more information, please contact: [id number] [place] [address] Date Inactivated Comments Code Status Date Activated 01/05/2018 2:47 PM Full Code 01/02/2018 10:57 PM
--- OUTSIDE RECORDS SUMMARY | 2018-10-22 11:56 | XMS REPORT | Clinical Summary ---
Author Author [facility] Address Unknown Phone Unavailable Care Team Providers Care X Ray Examiner Of Aircraft Name Role Phone Santana Snell PCP Allergies Comments Active Allergy Reactions Severity Noted Date Dextroamphetamine-Ampheta Rash Low 07/20/2015 mine Divalproex 07/15/2017 Risperidone Analogues Shortness Of High 07/20/2015 Breath Valproate Calcium Rash Low 07/20/2015 Medications End Date Status Medication Sig Dispensed Refills Start Date Active HYDROcodone-acetaminophen Take 1 tablet 0 (NORCO 5-325) 5-325 mg by mouth per tablet every 6 (six) hours as needed for Pain. Active amLODIPine (NORVASC) 10 Take 10 mg by 0 MG tablet mouth daily. Active pantoprazole (PROTONIX) Take 40 mg by 0 40 MG tablet mouth daily. Active carvedilol (COREG) 25 MG Take 25 mg by 0 tablet mouth 2 (two) times daily with breakfast and dinner. Active ALPRAZolam (XANAX) 2 MG Take 2 mg by 0 tabletIndications: mouth 3 anxiety (three) times daily. Active furosemide (LASIX) 20 MG Take 20 mg by 0 tablet mouth 2 (two) times daily. 07/19/2018 aspirin 81 MG EC tablet Take 1 tablet 30 tablet 3 (81 mg total) 7 by mouth daily. Active Problems Problem Noted Date Cannabis abuse, continuous 07/30/2017 Chronic combined systolic and diastolic CHF (congestive heart failure) 07/29/2017 Essential hypertension 07/29/2017 Stage 3 chronic kidney disease 07/29/2017 Panic disorder 07/29/2017 HLD (hyperlipidemia) 07/29/2017 Family History Medical History Relation Name Comments Stroke Father intracranial bleed Relation Name Status Comments Father Mother Social History Date Tobacco Use Types Packs/Day Years Used Former Smoker Smokeless Tobacco: Never Used Comments: 9 months ago, quit Alcohol Use Drinks/Week oz/Week Comments No Sex Assigned at Date Recorded Not on file Industry Job Start Date Occupation Not on file Not on file Not on file Travel End Travel History Travel Start No recent travel history available. Last Filed Vital Signs Not on file Plan of Treatment Health Maintenance Due Date Last Done Comments INFLUENZA VACCINE 05/10/2018 Implants Device Identifier Shelf Expiration Date Model / Serial / Lot Implanted Type Area Manufactur er 06/04/2017 5076 - 45CM / [id number] / [employer] Mr Conditional / 5076 - [employer] 45cm Implanted: Qty: 1 on 07/27/2015 05/10/2017 4298 - 78CM / [id number] / 4298 - 78cm [employer] Implanted: Qty: 1 on 07/27/2015 11/21/2016 [id number] / [id number] / Viva Quad Xt Tableau Administrator-D / [id number] [employer] Implanted: Qty: 1 on 07/27/2015 Procedures Comments Procedure Name Priority Date/Time Associated Diagnosis ARRYTHMIA IMPLANT REPORT 04/28/2018 - SCAN 3:10 PM CDT after 10/21/2017 Results * ARRYTHMIA IMPLANT REPORT - SCAN (04/28/2018 3:10 PM CDT) Narrative Performed At after 10/21/2017 Insurance Payer Benefit Subscriber ID Type Phone Address Plan / Group [employer] TEX[employer] xxxxxxxxx [facility] ALL Contracted Advance Directives For more information, please contact: [facility] [address] [place] [address] Date Inactivated Comments Code Status Date Activated 07/18/2017 1:53 PM Full Code 07/15/2017 7:49 AM This code status was determined by: Patient 07/29/2015 4:59 PM Full Code 07/20/2015 7:28 PM This code status was determined by: Patient
--- OUTSIDE RECORDS SUMMARY | 2018-10-22 11:57 | XMS REPORT | Summary of Care ---
Author Author [facility] Organization [facility] Address Unknown Phone Unavailable Encounter DENNIS Cisneros(CHRIS) [id number] Date(s): 09/23/18 - 09/24/18 [facility] [address] [place] [address]- Discharge Disposition: Home or Self Care Attending Physician: Miguelina Still MD Admitting Physician: Miguelina Still MD Vital Signs 1 2 3 Most recent to oldest [Reference Range]: 162.56 cm (09/21/18 2:15 PM) Height 98.3 DegF (09/24/18 11:48 AM) 98.4 DegF (09/24/18 8:28 AM) 98.5 DegF (09/24/18 4:00 AM) Temperature Oral [96.4-99.1 DegF] 117/63 mmHg (09/24/18 11:48 AM) 132/72 mmHg (09/24/18 8:28 AM) 114/63 mmHg (09/24/18 4:00 AM) Blood Pressure [90-140/60-90 mmHg] 20 BRMIN (09/24/18 11:48 AM) 18 BRMIN (09/24/18 8:28 AM) 18 BRMIN (09/24/18 4:00 AM) Respiratory Rate [14-20 BRMIN] 60 bpm (09/24/18 11:48 AM) 67 bpm (09/24/18 8:28 AM) 59 bpm *LOW* (09/24/18 4:00 AM) Peripheral Pulse Rate [60-100 bpm] 92.727 kg (09/21/18 2:15 PM) Weight 35.09 m2 (09/21/18 2:15 PM) Body Mass Index Problem List Condition Effective Dates Status Health Status Informant [id number]-pi-mnsraqr Active kidney injury(Confirmed) Anxiety(Confirmed) Active Coronary artery Active disease(Confirmed) Chronic renal Active insufficiency(Confir med) Chronic systolic Active heart failure(Confirmed) Diverticulosis(Confi Resolved rmed) Old LA (myocardial Resolved infarction)(Confirme d) Hypertension(Confirm Active ed) Ischemic Active cardiomyopathy(Confi rmed) Hernia, Active umbilical(Confirmed) Allergies, Adverse Reactions, Alerts Substance Reaction Severity Status Adderall Active Depakote Active RisperDAL Active Medications ALPRAZOLam 2 mg, 2 tab, Route: PO, Drug form: TAB, TID, Dosing Weight 92.727, kg, PRN Anxie ty, Start date: 09/21/18 22:01:00 [employer], Duration: 30 day, Stop date: 10/21/18 22: 00:00 CDT Notes: With food or milk(Same as: Xanax) Start Date: 09/21/18 Stop Date: 09/25/18 Status: Discontinued amLODIPine 10 mg, 2 tab, Route: PO, Drug form: TAB, Daily, Dosing Weight 92.727, kg, Start date: 09/22/18 9:00:00 [employer], Duration: 30 day, Stop date: 10/21/18 9:00:00 CDT Notes: (Same as: Norvasc) Start Date: 09/22/18 Stop Date: 09/25/18 Status: Discontinued aspirin 81 mg tablet, chewable 81 mg, 1 tab, Route: PO, Drug form: CHEWTAB, Q24H, Dosing Weight 92.727, kg, Sta rt date: 09/22/18 1:00:00 [employer], Duration: 30 day, Stop date: 10/21/18 1:00:00 CDT Notes: Take with food. Start Date: 09/22/18 Stop Date: 09/25/18 Status: Discontinued aspirin 81 mg tablet, chewable 81 mg=1 tab, PO, Daily, tab, 0 Refill(s) Start Date: 09/21/18 Status: Ordered carvedilol 25 mg, 2 tab, Route: PO, Drug form: TAB, BID, Dosing Weight 92.727, kg, Start da te: 09/22/18 9:00:00 [employer], Duration: 30 day, Stop date: 10/21/18 21:00:00 CDT Notes: Give with food. (Same As: Coreg) Start Date: 09/22/18 Stop Date: 09/25/18 Status: Discontinued cloNIDine 0.1 mg oral tablet 0.2 mg, 2 tab, Route: PO, Drug form: TAB, BID, Dosing Weight 92.727, kg, Start d ate: 09/22/18 9:00:00 [employer], Duration: 30 day, Stop date: 10/21/18 21:00:00 CDT Notes: (Same As: Catapres) Start Date: 09/22/18 Stop Date: 09/25/18 Status: Discontinued clopidogrel 75 mg, 1 tab, Route: PO, Drug form: TAB, Daily, Dosing Weight 92.727, kg, Start date: 09/22/18 9:00:00 [employer], Duration: 30 day, Stop date: 10/21/18 9:00:00 CDT Notes: (Same As: Plavix) Start Date: 09/22/18 Stop Date: 09/25/18 Status: Discontinued clopidogrel 75 mg oral tablet 75 mg=1 tab, PO, Daily, 0 Refill(s) Start Date: 09/21/18 Status: Ordered Colace 100 mg oral capsule 100 mg=1 cap, PO, BID, 0 Refill(s) Start Date: 09/24/18 Status: Ordered Colace 100 mg oral capsule 100 mg, 1 cap, Route: PO, Drug form: CAP, BID, Dosing Weight 92.727, kg, Start d ate: 09/22/18 20:00:00 [employer], Duration: 30 day, Stop date: 10/22/18 8:00:00 CDT Notes: (Same as: Colace) (Do Not Crush) Start Date: 09/22/18 Stop Date: 09/25/18 Status: Discontinued Dextrose 50% Syringe 25 gm, 50 mL, Route: IVP, Drug Form: INJ, Dosing Weight 89.091, kg, PRN, PRN Blo od Glucose Results, Start date: 09/21/18 11:08:00 [employer], Duration: 30 day, Stop da te: 10/21/18 12:07:00 CDT Start Date: 09/21/18 Stop Date: 09/25/18 Status: Discontinued Dextrose 50% Syringe 12.5 gm, 25 mL, Route: IVP, Drug Form: INJ, Dosing Weight 89.091, kg, PRN, PRN B lood Glucose Results, Start date: 09/21/18 11:08:00 [employer], Duration: 30 day, Stop date: 10/21/18 12:07:00 CDT Start Date: 09/21/18 Stop Date: 09/25/18 Status: Discontinued digoxin 250 mcg (0.25 mg) oral tablet 0.25 mg, 1 tab, Route: PO, Drug form: TAB, Daily, Dosing Weight 92.727, kg, Star t date: 09/22/18 9:00:00 [employer], Duration: 30 day, Stop date: 10/21/18 9:00:00 CDT Notes: Take on an Empty Stomach (Same as: Lanoxin) Start Date: 09/22/18 Stop Date: 09/25/18 Status: Discontinued ergocalciferol 50,000 IntlUnit, 1 cap, Route: PO, Drug form: CAP, Daily, Dosing Weight 92.727, kg, Start date: 09/23/18 9:00:00 [employer], Duration: 3 day, Stop date: 09/25/18 9:00: 00 [employer] Notes: (Same as: Vitamin D) "Do Not Crush" Start Date: 09/23/18 Stop Date: 09/25/18 Status: Discontinued famotidine 20 mg, 1 tab, Route: PO, Drug form: TAB, Q12H, Start date: 09/22/18 9:00:00 [employer], Duration: 30 day, Stop date: 10/21/18 21:00:00 CDT Notes: (Same as: Pepcid) Start Date: 09/22/18 Stop Date: 09/25/18 Status: Discontinued Flomax 0.4 mg, 1 cap, Route: PO, Drug form: CAP, After Dinner, Dosing Weight 92.727, kg , Start date: 09/22/18 17:00:00 [employer], Duration: 30 day, Stop date: 10/21/18 17:00 :00 CDT Notes: (Same As: Flomax) "Do Not Crush" Start Date: 09/22/18 Stop Date: 09/25/18 Status: Discontinued furosemide 40 mg oral tablet 40 mg=1 tab, PO, Daily, # 30 tab, 0 Refill(s), Pharmacy: [id number] Start Date: 09/24/18 Stop Date: 10/24/18 Status: Ordered furosemide 40 mg oral tablet 40 mg, 1 tab, Route: PO, Drug form: TAB, Daily, Dosing Weight 92.727, kg, Start date: 09/22/18 7:00:00 [employer], Duration: 30 day, Stop date: 10/21/18 7:00:00 CDT Notes: (Same as: Lasix) May cause GI upset. Give with food or milk. Start Date: 09/22/18 Stop Date: 09/22/18 Status: Discontinued glucagon 1 mg, Route: IM, Drug form: PDR/INJ, PRN, Dosing Weight 89.091, kg, PRN Blood Gl ucose Results, Start date: 09/21/18 11:08:00 [employer], Duration: 30 day, Stop date: 0 10/21/18 12:07:00 CDT Start Date: 09/21/18 Stop Date: 09/25/18 Status: Discontinued hydrALAZINE 10 mg, 0.5 mL, Route: IV, Drug form: INJ, Q4H, Dosing Weight 92.727, kg, PRN Oth er -See Comment, Start date: 09/21/18 14:55:00 [employer], Duration: 30 day, Stop date: 10/21/18 14:54:00 CDT, SBP >160 Notes: (Same as: Apresoline)Push over 5 minutes Start Date: 09/21/18 Stop Date: 09/23/18 Status: Discontinued hydrALAZINE 10 mg, 0.5 mL, Route: IV, Drug form: INJ, Q4H, Dosing Weight 92.727, kg, PRN Hyp ertension, Start date: 09/23/18 6:41:00 [employer], Duration: 30 day, Stop date: 6:40:00 CDT Notes: (Same as: Apresoline)Push over 5 minutes Start Date: 09/23/18 Stop Date: 09/25/18 Status: Discontinued hydrALAZINE 50 mg oral tablet 50 mg=1 tab, PO, Q8H, 0 Refill(s) Start Date: 09/21/18 Status: Ordered hydrALAZINE 50 mg oral tablet 50 mg, 1 tab, Route: PO, Drug form: TAB, Q8H, Dosing Weight 92.727, kg, Start da te: 09/22/18 8:00:00 [employer], Duration: 30 day, Stop date: 10/22/18 0:00:00 CDT Notes: (Same as: Apresoline) May interfere w/enteral feedings Take With Food Start Date: 09/22/18 Stop Date: 09/25/18 Status: Discontinued isosorbide mononitrate 60 mg, 2 tab, Route: PO, Drug form: ERTAB, QAM, Dosing Weight 92.727, kg, Start date: 09/22/18 9:00:00 [employer], Duration: 30 day, Stop date: 10/21/18 9:00:00 CDT Notes: (Same as:Imdur)"Do Not Crush" Take on empty stomach/ full glass of water . Do not crush Start Date: 09/22/18 Stop Date: 09/25/18 Status: Discontinued lactulose\\water - enema 1,000 ml, Route: WY, Drug Form: NANDO, Dosing Weight 92.727, kg, ONCE, Start date : 09/22/18 14:26:00 [employer], Stop date: 09/22/18 14:26:00 [employer], 300 mL lactulose + 70 0 mL water Notes: Lactulose 300ml, Water for Irrigation 700ml - total [id number] Start Date: 09/22/18 Stop Date: 09/22/18 Status: Completed Lasix 40 mg, 4 mL, Route: IVP, Drug form: INJ, BID Diuretic, Dosing Weight 92.727, kg, Start date: 09/23/18 8:00:00 [employer], Duration: 30 day, Stop date: 10/22/18 16:00:00 CDT Notes: (Same as: Lasix) MEDICATION WASTE Product Size: 40 mgProduct Was ana: ___ mg Start Date: 09/23/18 Stop Date: 09/25/18 Status: Discontinued lisinopril 20 mg, 1 tab, Route: PO, Drug form: TAB, BID, Dosing Weight 92.727, kg, Start da te: 09/22/18 9:00:00 [employer], Duration: 30 day, Stop date: 10/21/18 21:00:00 CDT Notes: (Same as: Prinivil, Zestril) Start Date: 09/22/18 Stop Date: 09/25/18 Status: Discontinued Lopressor 2.5 mg, 2.5 mL, Route: IVP, Drug form: INJ, Q3H, Dosing Weight 92.727, kg, PRN T achycardia, Start date: 09/23/18 6:41:00 [employer], Duration: 30 day, Stop date: 10/23 6:40:00 CDT Notes: (Same as: Lopressor)Push over 2 minutes Start Date: 09/23/18 Stop Date: 09/25/18 Status: Discontinued MiraLax oral powder for reconstitution 17 gm, PO, Daily, # 255 gm, 0 Refill(s) Start Date: 09/21/18 Stop Date: 10/06/18 Status: Ordered morphine Sulfate 2 mg, 1 mL, Route: IVP, Drug form: SOLN, Q2H, Dosing Weight 92.727, kg, PRN Ches t Pain, Start date: 09/23/18 6:41:00 [employer], Duration: 30 day, Stop date: 10/23/18 6:40:00 CDT Start Date: 09/23/18 Stop Date: 09/25/18 Status: Discontinued morphine Sulfate 2 mg, 0.5 mL, Route: IV, Drug form: SOLN, Q3H, Dosing Weight 92.727, kg, PRN Flor n Score 4-6, Start date: 09/21/18 14:55:00 [employer], Duration: 30 day, Stop date: 14:54:00 CDT Notes: (Same as:MORPhine Sulfate) Start Date: 09/21/18 Stop Date: 09/25/18 Status: Discontinued nitroglycerin 0.4 mg sublingual tablet 0.4 mg, 1 tab, Route: SL, Drug form: TAB, Q5Min, Dosing Weight 92.727, kg, PRN C hest Pain, Start date: 09/22/18 0:08:00 [employer], Duration: 30 day, Stop date: 1:07:00 CDT Notes: (Same as:Nitroquick, Nitrostat)"Do Not Crush" Sublingual tablet Start Date: 09/22/18 Stop Date: 09/25/18 Status: Discontinued nitroglycerin 0.4 mg sublingual tablet 0.4 mg=1 tab, SL, Q5Min, PRN Chest pain, Give up to 3 doses. Call 911 if pain pe rsists., # 100 tab, 0 Refill(s) Start Date: 09/21/18 Status: Ordered normal saline 0.9% IV 1,000 mL 1,000 mL, Rate: 125 ml/hr, Infuse over: 8 hr, Route: IV, Dosing Weight 92.727 kg , Total Volume: 1,000, Start date: 09/22/18 5:02:00 [employer], Duration: 30 day, Stop date: 10/22/18 5:01:00 CDT, 2.08, m2 Start Date: 09/22/18 Stop Date: 09/22/18 Status: Discontinued please update height, weight, and allergies please update height, weight, and allergies, 1, Drug form: MISC, Route: MISC, ON CE, 09/21/18 14:45:00 [employer], Stop date: 09/21/18 14:45:00 [employer] Start Date: 09/21/18 Stop Date: 09/21/18 Status: Deleted pneumococcal 13-valent vaccine 0.5 mL, Route: IM, Drug Form: INJ, ONCALL, Start date: 09/21/18 14:22:49 [employer], Du ration: 1 doses or times Notes: Shake well prior to use (Same as: Nanda 13) Start Date: 09/21/18 Stop Date: 09/24/18 Status: Canceled potassium chloride 20 mEq, 1 tab, Route: PO, Drug form: ERTAB, ONCE, Dosing Weight 92.727, kg, Star t date: 09/24/18 9:35:00 [employer], Stop date: 09/24/18 9:35:00 [employer] Notes: (Same as: K-Dur 20)"Do Not Crush" Give with food and full glass of water For patients unable to swallow tablet, dissolve in one half glass of water. Allo w about 2 minutes for the tablets to disintegrate. Stir before giving to prepare slurry and administer.Please exclude Patients with feeding tube less than 14 Taj[place] (Dobhoff, J-tube etc) and pediatric and patients. Start Date: 09/24/18 Stop Date: 09/24/18 Status: Completed potassium chloride 20 mEq oral tablet, extended release 20 mEq, 1 tab, Route: PO, Drug form: ERTAB, Daily, Dosing Weight 92.727, kg, Sta rt date: 09/22/18 9:00:00 [employer], Duration: 30 day, Stop date: 10/21/18 9:00:00 CDT Notes: (Same as: K-Dur 20)"Do Not Crush" Give with food and full glass of water For patients unable to swallow tablet, dissolve in one half glass of water. Allo w about 2 minutes for the tablets to disintegrate. Stir before giving to prepare slurry and administer.Please exclude Patients with feeding tube less than 14 Tajik (Dobhoff, J-tube etc) and pediatric and patients. Start Date: 09/22/18 Stop Date: 09/25/18 Status: Discontinued ranitidine 150 mg oral capsule 150 mg, 1 cap, Route: PO, Drug form: CAP, Daily, Dosing Weight 92.727, kg, Start date: 09/22/18 9:00:00 [employer], Duration: 30 day, Stop date: 10/21/18 9:00:00 CDT Start Date: 09/22/18 Stop Date: 09/22/18 Status: Deleted senna 17.2 mg, 2 tab, Route: PO, Drug Form: TAB, Dosing Weight 92.727, kg, BID, Start date: 09/22/18 20:00:00 [employer], Duration: 30 day, Stop date: 10/22/18 8:00:00 CDT Notes: (Same as: Senokot) Start Date: 09/22/18 Stop Date: 09/25/18 Status: Discontinued spironolactone 50 mg, 1 tab, Route: PO, Drug form: TAB, Daily, Dosing Weight 92.727, kg, Start date: 09/22/18 9:00:00 [employer], Duration: 30 day, Stop date: 10/21/18 9:00:00 CDT Notes: (Same As: Aldactone) Start Date: 09/22/18 Stop Date: 09/25/18 Status: Discontinued sucralfate 1 g oral tablet 1 gm=1 tab, PO, QID, # 120 tab, 1 Refill(s) Start Date: 09/21/18 Stop Date: 10/21/18 Status: Ordered Zosyn + Sodium Chloride 0.9% IV 100 mL 3.375 gm, Route: IVPB, ABXQ8H, Dosing Weight 92.727, kg, CrCl >=20 ml/min infuse over 4 hours, Start date: 09/22/18 22:00:00 [employer], Duration: 5 day, Stop date: 09/27/18 14:00:00 [employer]IATE [employer], ABX Indication: Intra-abdominal Infection Notes: (Same as: Zosyn)Dosing based on Piperacillin component MEDICATION [place] TEODORA Product Size: 3375 mgProduct Wasted: ___ mg Start Date: 09/22/18 Stop Date: 09/25/18 Status: Discontinued Results ELECTROLYTES 1 2 3 Most recent to oldest [Reference Range]: 140 mEq/L (09/24/18 6:41 AM) 138 mEq/L (09/23/18 12:37 PM) 139 mEq/L (09/22/18 6:48 AM) Sodium Lvl [135-145 mEq/L] 3.2 mEq/L *LOW* (09/24/18 6:41 AM) 3.3 mEq/L *LOW* (09/23/18 12:37 PM) 3.4 mEq/L *LOW* (09/22/18 6:48 AM) Potassium Lvl [3.5-5.1 mEq/L] 108 mEq/L (09/24/18 6:41 AM) 106 mEq/L (09/23/18 12:37 PM) 108 mEq/L (09/22/18 6:48 AM) Chloride Lvl [95-109 mEq/L] 27 mEq/L (09/24/18 6:41 AM) 26 mEq/L (09/23/18 12:37 PM) 27 mEq/L (09/22/18 6:48 AM) CO2 [24-32 mEq/L] 8.2 mEq/L *LOW* (09/24/18 6:41 AM) 9.3 mEq/L *LOW* (09/23/18 12:37 PM) 7.4 mEq/L *LOW* (09/22/18 6:48 AM) AGAP [10.0-20.0 mEq/L] CHEM PANEL 1 2 3 Most recent to oldest [Reference Range]: 1.80 mg/dL *HI* (09/24/18 6:41 AM) 1.56 mg/dL *HI* (09/23/18 12:37 PM) 1.56 mg/dL *HI* (09/22/18 6:48 AM) Creatinine Lvl [0.50-1.40 mg/dL] 41 mL/min/1.73m2 1 *NA* (09/24/18 6:41 AM) 48 mL/min/1.73m2 2 *NA* (09/23/18 12:37 PM) 48 mL/min/1.73m2 3 *NA* (09/22/18 6:48 AM) eGFR 16 mg/dL (09/24/18 6:41 AM) 17 mg/dL (09/23/18 12:37 PM) 26 mg/dL *HI* (09/22/18 6:48 AM) BUN [7-22 mg/dL] 17 (09/22/18 6:48 AM) 19 (09/21/18 9:25 PM) B/C Ratio [6-25] 84 mg/dL (09/24/18 6:41 AM) 118 mg/dL *HI* (09/23/18 12:37 PM) 88 mg/dL (09/22/18 6:48 AM) Glucose Lvl [70-99 mg/dL] 7.2 mg/dL (09/23/18 12:37 PM) Uric Acid [3.8-8.0 mg/dL] 6.8 g/dL (09/24/18 6:41 AM) 6.9 g/dL (09/22/18 6:48 AM) 7.5 g/dL (09/21/18 9:25 PM) Total Protein [6.4-8.4 g/dL] 3.2 g/dL *LOW* (09/24/18 6:41 AM) 3.3 g/dL *LOW* (09/22/18 6:48 AM) 3.6 g/dL (09/21/18 9:25 PM) Albumin Lvl [3.5-5.0 g/dL] 3.6 g/dL (09/24/18 6:41 AM) 3.6 g/dL (09/22/18 6:48 AM) 3.9 g/dL (09/21/18 9:25 PM) Globulin [2.7-4.2 g/dL] 0.9 (09/24/18 6:41 AM) 0.9 (09/22/18 6:48 AM) 0.9 (09/21/18 9:25 PM) A/G Ratio [0.7-1.6] 8.2 mg/dL *LOW* (09/24/18 6:41 AM) 8.5 mg/dL (09/23/18 12:37 PM) 8.1 mg/dL *LOW* (09/22/18 6:48 AM) Calcium Lvl [8.5-10.5 mg/dL] 3.3 mg/dL (09/23/18 12:37 PM) Phosphorus [2.5-4.5 mg/dL] 1.6 mg/dL *LOW* (09/23/18 12:37 PM) Magnesium Lvl [1.8-2.4 mg/dL] 13 unit/L (09/24/18 6:41 AM) 15 unit/L (09/22/18 6:48 AM) 19 unit/L (09/21/18 9:25 PM) ALT [0-65 unit/L] 9 unit/L (09/24/18 6:41 AM) 8 unit/L (09/22/18 6:48 AM) 13 unit/L (09/21/18 9:25 PM) AST [0-37 unit/L] 73 unit/L (09/24/18 6:41 AM) 83 unit/L (09/22/18 6:48 AM) 90 unit/L (09/21/18 9:25 PM) Alk Phos [39-136 unit/L] 1.4 mg/dL *HI* (09/24/18 6:41 AM) 0.6 mg/dL (09/22/18 6:48 AM) 0.4 mg/dL (09/21/18 9:25 PM) Bili Total [0.2-1.3 mg/dL] 0.5 mg/dL *HI* (09/24/18 6:41 AM) Bili Direct [0.0-0.3 mg/dL] 0.9 mg/dL (09/24/18 6:41 AM) Bili Indirect [0.0-1.0 mg/dL] 53 unit/L (09/23/18 12:37 PM) Amylase Lvl [25-115 unit/L] 103 unit/L (09/24/18 6:41 AM) Lipase Lvl [73-393 unit/L] 37.0 uMol/L (09/24/18 6:41 AM) Ammonia [<=45.0 uMol/L] 22.7 ng/mL *LOW* (09/23/18 12:37 PM) Vitamin D, 25-OH, Total [30.0-100.0 ng/mL] 1Result Comment: The eGFR is calculated using the CKD-EPI formula. In most young, healthy individuals the eGFR will be >90 mL/min/1.73m2. The eGFR declines with age. An eGFR of 60-89 may be normal in some populations, particularly the elderly, for whom the CKD-EPI formula has not been extensively validated. Use of the eGFR is not recommended in the following populations: Individuals with unstable creatinine concentrations, including patients and those with serious co-morbid conditions. Patients with extremes in muscle mass or diet. The data above are obtained from the National Kidney Disease Education Program ( NK[employer]) which additionally recommends that when the eGFR is used in patients with extremes of body mass index for purposes of drug dosing, the eGFR should be mul tiplied by the estimated BMI. 2Result Comment: The eGFR is calculated using the CKD-EPI formula. In most young, healthy individuals the eGFR will be >90 mL/min/1.73m2. The eGFR declines with age. An eGFR of 60-89 may be normal in some populations, particularly the elderly, for whom the CKD-EPI formula has not been extensively validated. Use of the eGFR is not recommended in the following populations: Individuals with unstable creatinine concentrations, including patients and those with serious co-morbid conditions. Patients with extremes in muscle mass or diet. The data above are obtained from the National Kidney Disease Education Program ( NKDEP) which additionally recommends that when the eGFR is used in patients with extremes of body mass index for purposes of drug dosing, the eGFR should be mul tiplied by the estimated BMI. 3Result Comment: The eGFR is calculated using the CKD-EPI formula. In most young, healthy individuals the eGFR will be >90 mL/min/1.73m2. The eGFR declines with age. An eGFR of 60-89 may be normal in some populations, particularly the elderly, for whom the CKD-EPI formula has not been extensively validated. Use of the eGFR is not recommended in the following populations: Individuals with unstable creatinine concentrations, including patients and those with serious co-morbid conditions. Patients with extremes in muscle mass or diet. The data above are obtained from the National Kidney Disease Education Program ( NKDEP) which additionally recommends that when the eGFR is used in patients with extremes of body mass index for purposes of drug dosing, the eGFR should be mul tiplied by the estimated BMI. CARDIAC ENZYMES 1 2 3 Most recent to oldest [Reference Range]: 358 pg/mL *HI* (09/24/18 6:41 AM) 1413 pg/mL *HI* (09/22/18 2:38 PM) BNP [<=100 pg/mL] LIPIDS 1 2 3 Most recent to oldest [Reference Range]: 3.12 *LOW* (09/23/18 12:37 PM) CHD Risk [4.00-7.30] 100 mg/dL (09/23/18 12:37 PM) Chol [<=199 mg/dL] 67 mg/dL (09/23/18 12:37 PM) Trig [<=149 mg/dL] 32 mg/dL *LOW* (09/23/18 12:37 PM) HDL [>=61 mg/dL] 55 mg/dL (09/23/18 12:37 PM) LDL (Calculated) [<=99 mg/dL] 13 *NA* (09/23/18 12:37 PM) VLDL SPECIAL CHEMISTRY 1 2 3 Most recent to oldest [Reference Range]: 5.9 % *HI* (09/23/18 12:37 PM) Hgb A1C [<=5.6 %] ANEMIA STUDY 1 2 3 Most recent to oldest [Reference Range]: 25 ug/dl *LOW* (09/21/18 3:10 PM) Iron [45-160 ug/dl] 18 ng/mL *LOW* (09/21/18 3:10 PM) Ferritin Lvl [22-275 ng/mL] 12 % (09/21/18 3:10 PM) % Satur Fe [12-57 %] 182 ug/dl (09/21/18 3:10 PM) UIBC [110-370 ug/dl] 207 ug/dl *LOW* (09/21/18 3:10 PM) TIBC [228-428 ug/dl] URINE AND STOOL 1 2 3 Most recent to oldest [Reference Range]: Clear (09/22/18 5:33 PM) UA Turbidity [Clear] Ltyellow *NA* (09/22/18 5:33 PM) UA Color 6.0 (09/22/18 5:33 PM) UA pH [5.0-8.0] 1.013 (09/22/18 5:33 PM) UA Spec Grav [<=1.030] Negative *NA* (09/22/18 5:33 PM) UA Glucose [Negative] Negative (09/22/18 5:33 PM) UA Blood [Negative] Negative *NA* (09/22/18 5:33 PM) UA Ketones [Negative] Negative (09/22/18 5:33 PM) UA Protein [Negative] <=1.0 mg/dL *NA* (09/22/18 5:33 PM) UA Urobilinogen [0.1-1.0 mg/dL] Negative *NA* (09/22/18 5:33 PM) UA Bili [Negative] Negative (09/22/18 5:33 PM) UA Leuk Est [Negative] Negative (09/22/18 5:33 PM) UA Nitrite [Negative] 0 /HPF (09/22/18 5:33 PM) UA WBC [0-5 /HPF] 0 /HPF (09/22/18 5:33 PM) UA RBC [0-2 /HPF] None Seen (09/22/18 5:33 PM) UA Bacteria [None Seen] None Seen (09/22/18 5:33 PM) UA Sq Epi [Few] IMMUNOLOGY 1 2 3 Most recent to oldest [Reference Range]: Negative (09/21/18 3:10 PM) REY [Negative] Negative (09/21/18 3:10 PM) AMA Ab Scr [Negative] Negative (09/21/18 3:10 PM) SMA Screen [Negative] 33 mg/dL (09/21/18 3:10 PM) Ceruloplasmin [20-60 mg/dL] 166 mg/dL (09/21/18 3:10 PM) A-1-AT [83-199 mg/dL] 12.2 uMol/L (09/23/18 12:37 PM) Homocyst Tot [3.7-13.9 uMol/L] Negative *NA* (09/21/18 3:10 PM) Hep A Tot [Negative] Negative *NA* (09/21/18 3:10 PM) Hep Bs Ag [Negative] Negative *NA* (09/21/18 3:10 PM) Hep B Core Ab [Negative] HEMATOLOGY 1 2 3 Most recent to oldest [Reference Range]: 5.1 K/CMM (09/24/18 6:41 AM) 6.9 K/CMM (09/22/18 6:48 AM) 8.0 K/CMM (09/21/18 9:25 PM) WBC [3.7-10.4 K/CMM] 4.35 M/CMM *LOW* (09/24/18 6:41 AM) 4.31 M/CMM *LOW* (09/22/18 6:48 AM) 4.71 M/CMM (09/21/18 9:25 PM) RBC [4.70-6.10 M/CMM] 10.6 g/dL *LOW* (09/24/18 6:41 AM) 10.6 g/dL *LOW* (09/22/18 6:48 AM) 11.5 g/dL *LOW* (09/21/18 9:25 PM) Hgb [14.0-18.0 g/dL] 33.5 % *LOW* (09/24/18 6:41 AM) 33.6 % *LOW* (09/22/18 6:48 AM) 36.5 % *LOW* (09/21/18 9:25 PM) Hct [42.0-54.0 %] 77.1 fL *LOW* (09/24/18 6:41 AM) 77.9 fL *LOW* (09/22/18 6:48 AM) 77.4 fL *LOW* (09/21/18 9:25 PM) MCV [80.0-94.0 fL] 24.3 pg *LOW* (09/24/18 6:41 AM) 24.6 pg *LOW* (09/22/18 6:48 AM) 24.5 pg *LOW* (09/21/18 9:25 PM) MCH [27.0-31.0 pg] 31.5 g/dL *LOW* (09/24/18 6:41 AM) 31.6 g/dL *LOW* (09/22/18 6:48 AM) 31.6 g/dL *LOW* (09/21/18 9:25 PM) MCHC [32.0-36.0 g/dL] 17.6 % *HI* (09/24/18 6:41 AM) 17.7 % *HI* (09/22/18 6:48 AM) 17.5 % *HI* (09/21/18 9:25 PM) RDW [11.5-14.5 %] 8.1 fL (09/24/18 6:41 AM) 8.8 fL (09/22/18 6:48 AM) 8.8 fL (09/21/18 9:25 PM) MPV [7.4-10.4 fL] 236 K/CMM (09/24/18 6:41 AM) 189 K/CMM (09/22/18 6:48 AM) 212 K/CMM (09/21/18 9:25 PM) Platelet [133-450 K/CMM] 62.7 % (09/24/18 6:41 AM) 68.2 % (09/22/18 6:48 AM) 61.9 % (09/21/18 9:25 PM) Segs [45.0-75.0 %] 18.6 % *LOW* (09/24/18 6:41 AM) 17.3 % *LOW* (09/22/18 6:48 AM) 24.0 % (09/21/18 9:25 PM) Lymphocytes [20.0-40.0 %] 13.5 % *HI* (09/24/18 6:41 AM) 11.6 % (09/22/18 6:48 AM) 11.2 % (09/21/18 9:25 PM) Monocytes [2.0-12.0 %] 4.0 % (09/24/18 6:41 AM) 1.8 % (09/22/18 6:48 AM) 1.9 % (09/21/18 9:25 PM) Eosinophils [0.0-4.0 %] 1.2 % *HI* (09/24/18 6:41 AM) 1.1 % *HI* (09/22/18 6:48 AM) 1.0 % (09/21/18 9:25 PM) Basophils [0.0-1.0 %] 3.2 K/CMM (09/24/18 6:41 AM) 4.7 K/CMM (09/22/18 6:48 AM) 5.0 K/CMM (09/21/18 9:25 PM) Neutrophils # [1.5-8.1 K/CMM] 0.9 K/CMM *LOW* (09/24/18 6:41 AM) 1.2 K/CMM (09/22/18 6:48 AM) 1.9 K/CMM (09/21/18 9:25 PM) Lymphocytes # [1.0-5.5 K/CMM] 0.7 K/CMM (09/24/18 6:41 AM) 0.8 K/CMM (09/22/18 6:48 AM) 0.9 K/CMM *HI* (09/21/18 9:25 PM) Monocytes # [0.0-0.8 K/CMM] 0.2 K/CMM (09/24/18 6:41 AM) 0.1 K/CMM (09/22/18 6:48 AM) 0.2 K/CMM (09/21/18 9:25 PM) Eosinophils # [0.0-0.5 K/CMM] 0.1 K/CMM (09/24/18 6:41 AM) 0.1 K/CMM (09/22/18 6:48 AM) 0.1 K/CMM (09/21/18 9:25 PM) Basophils # [0.0-0.2 K/CMM] 1+ *ABN* (09/24/18 6:41 AM) 1+ *ABN* (09/22/18 6:48 AM) 1+ *ABN* (09/21/18 9:25 PM) Microcyte [None Seen] 15 mm/hr (09/23/18 12:37 PM) Sed Rate [0-15 mm/hr] 16.6 seconds *HI* (09/22/18 6:48 AM) PT [12.0-14.7 seconds] 1.37 *HI* (09/22/18 6:48 AM) INR [0.85-1.17] TUMOR MARKERS 1 2 3 Most recent to oldest [Reference Range]: 1.3 ng/mL (09/21/18 3:10 PM) AFP TM [0.0-11.0 ng/mL] Immunizations No data available for this section Procedures Procedure Date Related Diagnosis Body Site Status Pacemaker care Completed Social History Social History Type Response Substance Abuse Use: Current. Type: Marijuana. Frequency: Daily. Smoking Status Former smoker; Ready to change: No; Concerns about tobacco use in household: No; Exposure to Tobacco Smoke None; Cigarette Smoking Last 365 Days No; Reg Smoking Cessation Counseling No entered on: 09/21/18 Assessment and Plan Extracted from: Title: Clinical Document Author: Josué Rausch MD Date: 09/24/18 Progress Note Gastroenterology and Hepatology ASSESSMENT /PLAN: 58-year-old male with the past medical history of coronary artery disease status post CABG on Aspirin/Plavix, pacemaker placement, atrial fibrillation, hypertension, asthma, anxiety among other medical problems who was directly admitted from my office yesterday with complaints of significant diffuse abdominal pain, abdominal distention as well as nausea, vomiting and significant constipation going on for last 4-5 months. Labs reveal normal BMP except creatinine of 1.64 and potassium of 3.3. LFTs are normal. Iron studies show low TIBC 207 low ferritin at 18% a saturation of 12. Hemoglobin 11.5 MCV 77.4 white count 8.0 and platelet count 212. BNP elevated at 1413. UA is negative. Chronic liver disease workup is negative except hepatitis C PCR positive. Hep C genotype is pending. CT abdomen pelvis with contrast shows subcentimeter hypodensities within the liver, questionable hemangiomas. Distended gallbladder with gallbladder wall thickening. Small amount of abdominal ascites, trace left pleural effusion, cardiomegaly and significant stool burden. USG with mild perihepatic ascites. HIDA scan -ve. Echo with EF=25-30% Recommend -Supportive care. -Continue bowel regimen. Start on GoLYTELY cleanout to help with stool burden which might help his abdominal pain/distention. -CHF accounts for mild ascites/pleural effusion seen on imaging; Rx per cardiology. He does not seem to be cirrhotic to account for ascites. -Await hep C genotype. Outpatient treatment for hepatitis C once acute issues resolved. -EGD/colonoscopy for evaluation of iron deficiency anemia once acute issues resolved, can be done as an outpatient. He will need to be off Plavix for 5 days prior to that. -Ok to d/c from GI perspective with outpt f/up in 1 week. SUBJECTIVE: Pt now again complaining about diffuse abdominal pain and bloating. States he has not had further bowel movements after lactulose enema. He has unusual expectations from medical community. Review of Systems: (-)=Negative,(+)=Positive 1) Const: (-) fever, (-) weight change 2) Skin: (-) rash, (-) bleeding 3) HEENT: (-) difficulty swallowing, (-) swelling 4) Eyes: (-) vision changes, (-) bleeding 5) Neuro: (-) weakness, (-) headaches 6) Resp: (-) dyspnea on exertion, (-) cough 7) Cardio: (-) chest pain, (-) orthopnea 8) GI: (-) blood in stool, (-) reflux 9) : (-) dysuria, (-) bloody discharge 10) Endo: (-) heat intolerance, (-) cold intolerance OBJECTIVE: Vitals: See below General: Alert , Oriented x 3 CVS: s1s2 RRR Resp: CTA Bilaterally Abd : Soft, NT, ND , BS + Ext : no edema WINDOW SHADE ESTIMATOR: No gross motor/sensory defects VitalsTmp(F)[id number] 09/24 11:[id number]--- 09/24 08:56----88 09/24 08:[id number]--- 09/24 04:[id number]--- 09/24 00:[id number]--- 24 Hr Tmax: 98.8F (37.11c) at 09/24 00:00Vital Signs are the last 5 in the past 48 hours. Lines, Tubes, and Drains: 09/21/2018 14:52 Peripheral Lines: Forearm Right 22 gauge Over the needle catheter Pacemaker care I&ORecordInOutBal 09/1523hr Tot 79 0 79 1424hr Tot [phone] Medications (28) Active Scheduled: (19) amLODIPine 5 mg TAB 10 mg 2 tab, PO, Daily aspirin 81 mg CHEW TAB 81 mg 1 tab, PO, Q24H carvedilol 12.5 mg TAB 25 mg 2 tab, PO, BID cloNIDine 0.1 mg TAB 0.2 mg 2 tab, PO, BID clopidogrel 75 mg TAB 75 mg 1 tab, PO, Daily digoxin 0.25 mg TAB 0.25 mg 1 tab, PO, Daily docusate sodium 100 mg CAP 100 mg 1 cap, PO, BID ergocalciferol 09017 IntlUnit CAP 50,000 IntlUnit 1 cap, PO, Daily famotidine 20 mg tab 20 mg 1 tab, PO, Q12H furosemide 10mg/ml INJ 4ml VL 40 mg 4 mL, IVP, BID Diuretic hydrALAZINE 50 mg TAB 50 mg 1 tab, PO, Q8H isosorbide mononitrate 30 mg ERT 60 mg 2 tab, PO, QAM lisinopril 20 mg TAB 20 mg 1 tab, PO, BID piperacillin-tazobactam INJ + sodium chloride 0.9% INJ 100ml (mini-bag Plus) 100 mL 3.375 gm, IVPB, ABXQ8H pneumococcal 13-valent conjugate vaccine SUSP 0.5 mL, IM, ONCALL potassium chloride 20 mEq ERT 20 mEq 1 tab, PO, Daily senna 8.6 mg TAB 17.2 mg 2 tab, PO, BID spironolactone 50 mg TAB 50 mg 1 tab, PO, Daily tamsulosin 0.4 mg CAP 0.4 mg 1 cap, PO, After Dinner Continuous: (0) PRN: (9) ALPRAZolam 1 mg TAB 2 mg 2 tab, PO, TID Dextrose 50% 50 ml INJ syringe 12.5 gm 25 mL, IVP, PRN Dextrose 50% 50 ml INJ syringe 25 gm 50 mL, IVP, PRN glucagon recombinant 1 mg PDR 1 mg, IM, PRN hydrALAZINE 20 mg/1 ml VL 10 mg 0.5 mL, IV, Q4H metoprolol 5 mg/5 ml INJ 2.5 mg 2.5 mL, IVP, Q3H MORPhine sulfate 2 mg/mL INJ SYR PF 2 mg 1 mL, IVP, Q2H MORPhine sulfate PF 4 mg/mL INJ VL 2 mg 0.5 mL, IV, Q3H nitroglycerin 0.4 mg TAB 25's btl 0.4 mg 1 tab, SL, Q5Min Labs (Last four charted values) WBC 5.1(FEB 15)6.9(FEB 13)8.0(FEB 12) Hgb L 10.6(FEB 15)L 10.6(FEB 13)L 11.5(FEB 12) Hct L 33.5(FEB 15)L 33.6(FEB 13)L 36.5(FEB 12) Plt 236(FEB 15)189(FEB 13)212(FEB 12) Na 140(FEB 15)138(FEB 14)139(FEB 13)141(FEB 12) K L 3.2(FEB 15)L 3.3(FEB 14)L 3.4(FEB 13)L 3.3(FEB 12) CO2 27(FEB 15)26(FEB 14)27(FEB 13)26(FEB 12) Cl 108(FEB 15)106(FEB 14)108(FEB 13)H 110(FEB 12) Cr H 1.80(FEB 15)H 1.56(FEB 14)H 1.56(FEB 13)H 1.64(FEB 12) BUN 16(FEB 15)17(FEB 14)H 26(FEB 13)H 31(FEB 12) Glucose Random 84(FEB 15)H 118(FEB 14)88(FEB 13)87(FEB 12) Mg L 1.6(FEB 14) Phos 3.3(FEB 14) Ca L 8.2(FEB 15)8.5(FEB 14)L 8.1(FEB 13)8.5(FEB 12) PT H 16.6(FEB 13) INR H 1.37(FEB 13) Extracted from: Title: History and Physical Author: Madelyn Choi MD Date: 09/22/18 58 year old man who presents as a transfer for abdominal pain, onset 2 days ago. 1.Abdominal pain, diffuse(R10.84) - CT Abdomen with concern foracute cholecysitis - RUQ US pending - NPO + IVFs - Pain meds PRN 2.Pgmih-zg-inllsrm kidney injury(N17.9) - unknown baseline - IVFs 3.Coronary artery disease(I25.10) - continue home medications 4.Hypertension(I10) - uncontrolled, possibly 2/2 pain - continue home medications 5.Anxiety(F41.9) - continue home medications SCDs Anticipate discharge home in 2-3 midnights pending clinical improvement. Madelyn Choi MD [employer]
--- OUTSIDE RECORDS SUMMARY | 2018-10-22 11:57 | XMS REPORT | Continuity of Care Document ---
Author Author Rosalba david [facility] Interface Address Unknown Phone Unavailable Problems Problem Status Onset Date Classification Date Reported Comments Source ABDOMINAL PAIN, DIFFUSE Active 09/21/2018 [facility] ABD PAIN Active 09/21/2018 [facility] FOLLOW UP Active 09/01/[address] [facility] [place] [place] 3 WEEK F/U Active 03/09/[address] [facility] [place] [place] TAVR Active 02/23/[address] [facility] [place] [place] [id number] kidney injury Active Problem 09/26/2018 [facility] Anxiety Active Problem 09/26/2018 [facility] Coronary artery disease Active Problem 09/26/[address] [facility] [place], THOMAS Jhaveri,[facility] Chronic renal insufficiency Active Problem 09/26/[address] [facility] [place], [place] Jhaveri,[facility] Chronic systolic heart failure Active Problem 09/26/[address] [facility] [place], THOMAS Jhaveri,[facility] Diverticulosis Resolved Problem 09/26/[address] [facility] [place], [place]OM[place] Jhaveri,[facility] [place] (<span ID="[id number]">Confirmed</span>) Resolved Problem 09/26/[address] [facility] [place], THOMAS Jhaveri,[facility] Hypertension Active Problem 09/26/[address] [facility] [place], [place]OMAS Jhaveri,[facility] Ischemic cardiomyopathy Active Problem 09/26/[address] [facility] [place], THOMAS Jhaveri,[facility] Hernia, umbilical Active Problem 09/26/[address] [facility] [place], THOMAS Jhaveri,[facility] UNSPECIFIED ABDOMINAL PAIN Active [facility] Medications Medication Details Route Status Patient Instructions Ordering Provider Order Date Source Furosemide 40 MG Oral Tablet 40 mg=1 tab, PO, Daily, # 30 tab, 0 Refill(s), Pharmacy: [id number] Active 09/24/2018 [facility] Docusate Sodium 100 MG Oral Capsule [Colace] 100 mg=1 cap, PO, BID, 0 Refill(s) Active 09/24/2018 [facility] Potassium Chloride 20 mEq, 1 tab, Route: PO, Drug form: ERTAB, ONCE, Dosing Weight 92.727, kg, Start date: 09/24/18 9:35:00 COIL REPAIR TECHNICIAN, Stop date: 09/24/18 9:35:00 CSTNotes: (Same as: K-Dur 20) "Do Not Crush" Give with food and full glass of water For patients unable to swallow tablet, dissolve in one half glass of water. Allow about 2 minutes for the tablets to disintegrate. Stir before giving to prepare slurry and administer. Please exclude Patients with feeding tube less than 14 Stateless (Dobhoff, J-tube etc) and pediatric and patients. Inactive 09/24/2018 [facility] Ergocalciferol 50,000 IntlUnit, 1 cap, Route: PO, Drug form: CAP, Daily, Dosing Weight 92.727, kg, Start date: 09/23/18 9:00:00 COIL REPAIR TECHNICIAN, Duration: 3 day, Stop date: 09/25/18 9:00:00 CSTNotes: (Same as: Vitamin D) "Do Not Crush" No Longer Active 09/23/2018 [facility] Lasix 40 mg, 4 mL, Route: IVP, Drug form: INJ, BID Diuretic, Dosing Weight 92.727, kg, Start date: 09/23/18 8:00:00 COIL REPAIR TECHNICIAN, Duration: 30 day, Stop date: 10/22/18 16:00:00 CDTNotes: (Same as: Lasix) MEDICATION WASTE Product Size: 40 mg Product Wasted: ___ mg No Longer Active 09/23/2018 [facility] Lopressor 2.5 mg, 2.5 mL, Route: IVP, Drug form: INJ, Q3H, Dosing Weight 92.727, kg, PRN Tachycardia, Start date: 09/23/18 6:41:00 COIL REPAIR TECHNICIAN, Duration: 30 day, Stop date: 10/23/18 6:40:00 CDTNotes: (Same as: Lopressor) Push over 2 minutes No Longer Active 09/23/2018 [facility] Morphine 2 mg, 1 mL, Route: IVP, Drug form: SOLN, Q2H, Dosing Weight 92.727, kg, PRN Chest Pain, Start date: 09/23/18 6:41:00 COIL REPAIR TECHNICIAN, Duration: 30 day, Stop date: 10/23/18 6:40:00 CDT No Longer Active 09/23/2018 [facility] Hydralazine 10 mg, 0.5 mL, Route: IV, Drug form: INJ, Q4H, Dosing Weight 92.727, kg, PRN Hypertension, Start date: 09/23/18 6:41:00 COIL REPAIR TECHNICIAN, Duration: 30 day, Stop date: 10/23/18 6:40:00 CDTNotes: (Same as: Apresoline) Push over 5 minutes No Longer Active 09/23/2018 [facility] Zosyn 3.375 gm, Route: IVPB, ABXQ8H, Dosing Weight 92.727, kg, CrCl >=20 ml/min infuse over 4 hours, Start date: 09/22/18 22:00:00 COIL REPAIR TECHNICIAN, Duration: 5 day, Stop date: 09/27/18 14:00:00 COIL REPAIR TECHNICIAN, ABX Indication: Intra- abdominal InfectionNotes: (Same as: Zosyn) Dosing based on Piperacillin component MEDICATION WASTE Product Size: 3375 mg Product Wasted: ___ mg No Longer Active 09/23/2018 [facility] sennosides, FCI 17.2 mg, 2 tab, Route: PO, Drug Form: TAB, Dosing Weight 92.727, kg, BID, Start date: 09/22/18 20:00:00 COIL REPAIR TECHNICIAN, Duration: 30 day, Stop date: 10/22/18 8:00:00 CDTNotes: (Same as: Senokot) No Longer Active 09/23/2018 [facility] Docusate Sodium 100 MG Oral Capsule [Colace] 100 mg, 1 cap, Route: PO, Drug form: CAP, BID, Dosing Weight 92.727, kg, Start date: 09/22/18 20:00:00 COIL REPAIR TECHNICIAN, Duration: 30 day, Stop date: 10/22/18 8:00:00 CDTNotes: (Same as: Colace) (Do Not Crush) No Longer Active 09/23/2018 [facility] Flomax 0.4 mg, 1 cap, Route: PO, Drug form: CAP, After Dinner, Dosing Weight 92.727, kg, Start date: 09/22/18 17:00:00 COIL REPAIR TECHNICIAN, Duration: 30 day, Stop date: 10/21/18 17:00:00 CDTNotes: (Same As: Flomax) "Do Not Crush" No Longer Active 09/22/2018 [facility] Lactulose 1,000 ml, Route: ID, Drug Form: NANDO, Dosing Weight 92.727, kg, ONCE, Start date: 09/22/18 14:26:00 COIL REPAIR TECHNICIAN, Stop date: 09/22/18 14:26:00 COIL REPAIR TECHNICIAN, 300 mL lactulose + 700 mL waterNotes: Lactulose 300ml, Water for Irrigation 700ml - total [id number] Inactive 09/22/2018 [facility] Spironolactone 50 mg, 1 tab, Route: PO, Drug form: TAB, Daily, Dosing Weight 92.727, kg, Start date: 09/22/18 9:00:00 COIL REPAIR TECHNICIAN, Duration: 30 day, Stop date: 10/21/18 9:00:00 CDTNotes: (Same As: Aldactone) No Longer Active 09/22/2018 [facility] Ranitidine 150 MG Oral Capsule 150 mg, 1 cap, Route: PO, Drug form: CAP, Daily, Dosing Weight 92.727, kg, Start date: 09/22/18 9:00:00 COIL REPAIR TECHNICIAN, Duration: 30 day, Stop date: 10/21/18 9:00:00 CDT Inactive 09/22/2018 [facility] potassium chloride 20 mEq oral tablet, extended release 20 mEq, 1 tab, Route: PO, Drug form: ERTAB, Daily, Dosing Weight 92.727, kg, Start date: 09/22/18 9:00:00 COIL REPAIR TECHNICIAN, Duration: 30 day, Stop date: 10/21/18 9:00:00 CDTNotes: (Same as: K-Dur 20) "Do Not Crush" Give with food and full glass of water For patients unable to swallow tablet, dissolve in one half glass of water. Allow about 2 minutes for the tablets to disintegrate. Stir before giving to prepare slurry and administer. Please exclude Patients with feeding tube less than 14 Stateless (Dobhoff, J-tube etc) and pediatric and patients. No Longer Active 09/22/2018 [facility] Lisinopril 20 mg, 1 tab, Route: PO, Drug form: TAB, BID, Dosing Weight 92.727, kg, Start date: 09/22/18 9:00:00 COIL REPAIR TECHNICIAN, Duration: 30 day, Stop date: 10/21/18 21:00:00 CDTNotes: (Same as: Prinivil, Zestril) No Longer Active 09/22/2018 [facility] Isosorbide 60 mg, 2 tab, Route: PO, Drug form: ERTAB, QAM, Dosing Weight 92.727, kg, Start date: 09/22/18 9:00:00 COIL REPAIR TECHNICIAN, Duration: 30 day, Stop date: 10/21/18 9:00:00 CDTNotes: (Same as:Imdur) "Do Not Crush" Take on empty stomach/ full glass of water. Do not crush No Longer Active 09/22/2018 [facility] Digoxin 0.25 MG Oral Tablet 0.25 mg, 1 tab, Route: PO, Drug form: TAB, Daily, Dosing Weight 92.727, kg, Start date: 09/22/18 9:00:00 COIL REPAIR TECHNICIAN, Duration: 30 day, Stop date: 10/21/18 9:00:00 CDTNotes: Take on an Empty Stomach (Same as: Lanoxin) No Longer Active 09/22/2018 [facility] clopidogrel 75 mg, 1 tab, Route: PO, Drug form: TAB, Daily, Dosing Weight 92.727, kg, Start date: 09/22/18 9:00:00 COIL REPAIR TECHNICIAN, Duration: 30 day, Stop date: 10/21/18 9:00:00 CDTNotes: (Same As: Plavix) No Longer Active 09/22/2018 [facility] Clonidine Hydrochloride 0.1 MG Oral Tablet 0.2 mg, 2 tab, Route: PO, Drug form: TAB, BID, Dosing Weight 92.727, kg, Start date: 09/22/18 9:00:00 COIL REPAIR TECHNICIAN, Duration: 30 day, Stop date: 10/21/18 21:00:00 CDTNotes: (Same As: Catapres) No Longer Active 09/22/2018 [facility] carvedilol 25 mg, 2 tab, Route: PO, Drug form: TAB, BID, Dosing Weight 92.727, kg, Start date: 09/22/18 9:00:00 COIL REPAIR TECHNICIAN, Duration: 30 day, Stop date: 10/21/18 21:00:00 CDTNotes: Give with food. (Same As: Coreg) No Longer Active 09/22/2018 [facility] Amlodipine 10 mg, 2 tab, Route: PO, Drug form: TAB, Daily, Dosing Weight 92.727, kg, Start date: 09/22/18 9:00:00 COIL REPAIR TECHNICIAN, Duration: 30 day, Stop date: 10/21/18 9:00:00 CDTNotes: (Same as: Norvasc) No Longer Active 09/22/2018 [facility] famotidine 20 mg, 1 tab, Route: PO, Drug form: TAB, Q12H, Start date: 09/22/18 9:00:00 COIL REPAIR TECHNICIAN, Duration: 30 day, Stop date: 10/21/18 21:00:00 CDTNotes: (Same as: Pepcid) No Longer Active 09/22/2018 [facility] Hydralazine Hydrochloride 50 MG Oral Tablet 50 mg, 1 tab, Route: PO, Drug form: TAB, Q8H, Dosing Weight 92.727, kg, Start date: 09/22/18 8:00:00 COIL REPAIR TECHNICIAN, Duration: 30 day, Stop date: 10/22/18 0:00:00 CDTNotes: (Same as: Apresoline) May interfere w/enteral feedings Take With Food No Longer Active 09/22/2018 [facility] Furosemide 40 MG Oral Tablet 40 mg, 1 tab, Route: PO, Drug form: TAB, Daily, Dosing Weight 92.727, kg, Start date: 09/22/18 7:00:00 COIL REPAIR TECHNICIAN, Duration: 30 day, Stop date: 10/21/18 7:00:00 CDTNotes: (Same as: Lasix) May cause GI upset. Give with food or milk. Inactive 09/22/2018 [facility] normal saline 0.9% IV 1,000 mL 1,000 mL, Rate: 125 ml/hr, Infuse over: 8 hr, Route: IV, Dosing Weight 92.727 kg, Total Volume: 1,000, Start date: 09/22/18 5:02:00 COIL REPAIR TECHNICIAN, Duration: 30 day, Stop date: 10/22/18 5:01:00 CDT, 2.08, m2 Inactive 09/22/2018 [facility] Aspirin 81 MG Chewable Tablet 81 mg, 1 tab, Route: PO, Drug form: CHEWTAB, Q24H, Dosing Weight 92.727, kg, Start date: 09/22/18 1:00:00 COIL REPAIR TECHNICIAN, Duration: 30 day, Stop date: 10/21/18 1:00:00 CDTNotes: Take with food. No Longer Active 09/22/2018 [facility] Nitroglycerin 0.4 MG Sublingual Tablet 0.4 mg, 1 tab, Route: SL, Drug form: TAB, Q5Min, Dosing Weight 92.727, kg, PRN Chest Pain, Start date: 09/22/18 0:08:00 COIL REPAIR TECHNICIAN, Duration: 30 day, Stop date: 10/22/18 1:07:00 CDTNotes: (Same as:Nitroquick, Nitrostat) "Do Not Crush" Sublingual tablet No Longer Active 09/22/2018 [facility] Alprazolam 2 MG Oral Tablet [Xanax] 2 mg, 2 tab, Route: PO, Drug form: TAB, TID, Dosing Weight 92.727, kg, PRN Anxiety, Start date: 09/21/18 22:01:00 COIL REPAIR TECHNICIAN, Duration: 30 day, Stop date: 10/21/18 22:00:00 CDTNotes: With food or milk (Same as: Xanax) No Longer Active 09/22/2018 [facility] Hydralazine 10 mg, 0.5 mL, Route: IV, Drug form: INJ, Q4H, Dosing Weight 92.727, kg, PRN Other -See Comment, Start date: 09/21/18 14:55:00 COIL REPAIR TECHNICIAN, Duration: 30 day, Stop date: 10/21/18 14:54:00 CDT, SBP >160Notes: (Same as: Apresoline) Push over 5 minutes No Longer Active 09/21/2018 [facility] Morphine 2 mg, 0.5 mL, Route: IV, Drug form: SOLN, Q3H, Dosing Weight 92.727, kg, PRN Pain Score 4-6, Start date: 09/21/18 14:55:00 COIL REPAIR TECHNICIAN, Duration: 30 day, Stop date: 10/21/18 14:54:00 CDTNotes: (Same as:MORPhine Sulfate) No Longer Active 09/21/2018 [facility] please update height, weight, and allergies please update height, weight, and allergies, 1, Drug form: MISC, Route: MISC, ONCE, 09/21/18 14:45:00 COIL REPAIR TECHNICIAN, Stop date: 09/21/18 14:45:00 COIL REPAIR TECHNICIAN Inactive 09/21/2018 [facility] clopidogrel 75 mg oral tablet 75 mg=1 tab, PO, Daily, 0 Refill(s) Active 09/21/2018 [facility] Hydralazine Hydrochloride 50 MG Oral Tablet 50 mg=1 tab, PO, Q8H, 0 Refill(s) Active 09/21/2018 [facility] sucralfate 1 g oral tablet 1 gm=1 tab, PO, QID, # 120 tab, 1 Refill(s) Active 09/21/2018 [facility] POLYETHYLENE GLYCOL 3350 142 MG/ML Oral Solution [Miralax] 17 gm, PO, Daily, # 255 gm, 0 Refill(s) Active 09/21/2018 [facility] Nitroglycerin 0.4 MG Sublingual Tablet 0.4 mg=1 tab, SL, Q5Min, PRN Chest pain, Give up to 3 doses. Call 911 if pain persists., # 100 tab, 0 Refill(s) Active 09/21/2018 [facility] Aspirin 81 MG Chewable Tablet 81 mg=1 tab, PO, Daily, tab, 0 Refill(s) Active 09/21/2018 [facility] Streptococcus pneumoniae serotype 1 capsular antigen diphtheria [id number] protein conjugate vaccine / Streptococcus pneumoniae serotype 14 capsular antigen diphtheria [id number] protein conjugate vaccine / Streptococcus pneumoniae serotype 18C capsular antigen d 0.5 mL, Route: IM, Drug Form: INJ, ONCALL, Start date: 09/21/18 14:22:49 COIL REPAIR TECHNICIAN, Duration: 1 doses or timesNotes: Shake well prior to use (Same as: Prevjusto 13) No Longer Active 09/21/2018 [facility] Dextrose 50% Syringe 25 gm, 50 mL, Route: IVP, Drug Form: INJ, Dosing Weight 89.091, kg, PRN, PRN Blood Glucose Results, Start date: 09/21/18 11:08:00 COIL REPAIR TECHNICIAN, Duration: 30 day, Stop date: 10/21/18 12:07:00 CDT No Longer Active 09/21/2018 [facility] Glucagon 1 mg, Route: IM, Drug form: PDR/INJ, PRN, Dosing Weight 89.091, kg, PRN Blood Glucose Results, Start date: 09/21/18 11:08:00 COIL REPAIR TECHNICIAN, Duration: 30 day, Stop date: 10/21/18 12:07:00 CDT No Longer Active 09/21/2018 [facility] azithromycin 500 mg oral tablet 500 mg=1 tab, PO, Daily, # 5 tab, 0 Refill(s) Active 03/09/[address] [facility] [place] [place] lisinopril 20 mg oral tablet 20 mg=1 tab, PO, Daily, # 30 tab, 0 Refill(s) Active 03/09/[address] [facility] [place] [place] isosorbide mononitrate 60 mg oral tablet, extended release 60 mg=1 tab, PO, QAM, # 30 tab, 0 Refill(s) Active 03/09/[address] [facility] [place] [place] digoxin 250 mcg (0.25 mg) oral tablet 0.25 mg, PO, Daily, # 30 tab, 0 Refill(s) Active 03/09/[address] [facility] [place] [place] Acetaminophen 325 MG / Hydrocodone Bitartrate 10 MG Oral Tablet 1 tab, PO, Q4H, PRN Pain, # 30 tab, 0 Refill(s) Active 03/09/[address] [facility] [place] [place] carisoprodol 350 mg oral tablet 350 mg=1 tab, PO, BID, # 30 tab, 0 Refill(s) Active 03/09/[address] [facility] [place] amLODIPine 10 mg oral tablet 10 mg=1 tab, PO, Daily, # 90 tab, 0 Refill(s) Active 03/09/[address] [facility] [place] [place] carvedilol 25 mg oral tablet 25 mg=1 tab, PO, BID, # 180 tab, 0 Refill(s) Active 03/09/[address] [facility] [place] [place] losartan 100 mg oral tablet 100 mg=1 tab, PO, Daily, # 30 tab, 0 Refill(s) Active 03/09/[address] [facility] [place] [place] Furosemide 40 MG Oral Tablet 40 mg=1 tab, PO, BID, # 30 tab, 0 Refill(s) Active 03/09/[address] [facility] [place] [place] Ranitidine 150 MG Oral Capsule 150 mg=1 cap, PO, Daily, # 180 cap, 0 Refill(s) Active 03/09/[address] [facility] [place] [place] Clonidine Hydrochloride 0.1 MG Oral Tablet 0.1 mg=1 tab, PO, Daily, # 90 tab, 3 Refill(s) Active 03/09/[address] [facility] [place] [place] potassium chloride 20 mEq oral tablet, extended release 20 mEq=1 tab, PO, Daily, # 30 tab, 3 Refill(s) Active 03/09/[address] [facility] [place] [place] Alprazolam 2 MG Oral Tablet 2 mg=1 tab, PO, TID, PRN Anxiety, 0 Refill(s) Active 03/09/[address] [facility] [place] [place] spironolactone 50 mg oral tablet 50 mg=1 tab, PO, Daily, # 90 tab, 1 Refill(s) Active 03/09/[address] [facility] [place] [place] Docusate Sodium 100 MG Oral Tablet [DOK] 100 mg=1 tab, PO, Daily, 0 Refill(s) Active 03/09/[address] [facility] [place] [place] Allergies, Adverse Reactions, Alerts Substance Category Reaction Severity Reaction type Status Date Reported Comments Source atenolol Assertion Drug allergy Active [facility] [place] [place] Adderall Assertion Drug allergy Active [facility] Depakote Assertion Drug allergy Active [facility] RisperDAL Assertion Drug allergy Active [facility] Immunizations Immunization Date Given Site Status Last Updated Comments Source Results Order Name Results Value Reference Range Date Interpretation Comments Source CARDIAC ENZYMES BNP 358 pg/mL <=100 pg/mL 09/24/2018 [facility] CHEM PANEL Ammonia 37.0 umol/L <=45.0 uMol/L 09/24/2018 [facility] CHEM PANEL Lipase Lvl 103 unit/L 73 - 393 09/24/2018 [facility] CHEM PANEL A/G Ratio 0.9 0.7 - 1.6 09/24/2018 [facility] CHEM PANEL Bili Indirect 0.9 mg/dL 0.0 - 1.0 09/24/2018 [facility] CHEM PANEL Globulin 3.6 g/dL 2.7 - 4.2 09/24/2018 [facility] CHEM PANEL AST 9 unit/L 0 - 37 09/24/2018 [facility] CHEM PANEL ALT 13 unit/L 0 - 65 09/24/2018 [facility] CHEM PANEL Alk Phos 73 unit/L 39 - 136 09/24/2018 [facility] CHEM PANEL Bili Total 1.4 mg/dL 0.2 - 1.3 09/24/2018 [facility] CHEM PANEL Albumin Lvl 3.2 g/dL 3.5 - 5.0 09/24/2018 [facility] CHEM PANEL Bili Direct 0.5 mg/dL 0.0 - 0.3 09/24/2018 [facility] CHEM PANEL Total Protein 6.8 g/dL 6.4 - 8.4 09/24/2018 [facility] CHEM PANEL eGFR 41 mL/min/1.73m2 09/24/2018 Result Comment: The eGFR is calculated using the [...] from the National Kidney Disease Education Program (NKDEP) which additionally recommends that when the eGFR is used in patients with extremes of body mass index for purposes of drug dosing, the eGFR should be multiplied by the estimated BMI. [facility] CHEM PANEL Chloride Lvl 108 meq/L 95 - 109 09/24/2018 [facility] CHEM PANEL Potassium Lvl 3.2 meq/L 3.5 - 5.1 09/24/2018 [facility] CHEM PANEL Calcium Lvl 8.2 mg/dL 8.5 - 10.5 09/24/2018 [facility] CHEM PANEL CO2 27 meq/L 24 - 32 09/24/2018 [facility] CHEM PANEL Sodium Lvl 140 meq/L 135 - 145 09/24/2018 [facility] CHEM PANEL Creatinine Lvl 1.80 mg/dL 0.50 - 1.40 09/24/2018 [facility] CHEM PANEL Glucose Lvl 84 mg/dL 70 - 99 09/24/2018 [facility] CHEM PANEL BUN 16 mg/dL 7 - 22 09/24/2018 [facility] CHEM PANEL AGAP 8.2 meq/L 10.0 - 20.0 09/24/2018 [facility] HEMATOLOGY Hgb 10.6 g/dL 14.0 - 18.0 09/24/2018 [facility] HEMATOLOGY Hct 33.5 % 42.0 - 54.0 09/24/2018 [facility] RBC 4.35 M/CMM 4.70 - 6.10 09/24/2018 [facility] Platelet 236 K/CMM 133 - 450 09/24/2018 [facility] MPV 8.1 fL 7.4 - 10.4 09/24/2018 [facility] RDW 17.6 % 11.5 - 14.5 09/24/2018 [facility] HEMATOLOGY WBC 5.1 K/CMM 3.7 - 10.4 09/24/2018 [facility] HEMATOLOGY MCHC 31.5 g/dL 32.0 - 36.0 09/24/2018 [facility] HEMATOLOGY MCV 77.1 fL 80.0 - 94.0 09/24/2018 [facility] MCH 24.3 pg 27.0 - 31.0 09/24/2018 [facility] HEMATOLOGY Eosinophils 4.0 % 0.0 - 4.0 09/24/2018 [facility] HEMATOLOGY Basophils 1.2 % 0.0 - 1.0 09/24/2018 [facility] HEMATOLOGY Monocytes # 0.7 K/CMM 0.0 - 0.8 09/24/2018 [facility] Lymphocytes # 0.9 K/CMM 1.0 - 5.5 09/24/2018 [facility] Microcyte 1+ *ABN* (09/24/18 6:41 AM) None Seen 09/24/2018 [facility] HEMATOLOGY Neutrophils # 3.2 K/CMM 1.5 - 8.1 09/24/2018 [facility] Basophils # 0.1 K/CMM 0.0 - 0.2 09/24/2018 [facility] Eosinophils # 0.2 K/CMM 0.0 - 0.5 09/24/2018 [facility] HEMATOLOGY Segs 62.7 % 45.0 - 75.0 09/24/2018 [facility] Monocytes 13.5 % 2.0 - 12.0 09/24/2018 [facility] Lymphocytes 18.6 % 20.0 - 40.0 09/24/2018 [facility] CHEM PANEL Phosphorus 3.3 mg/dL 2.5 - 4.5 09/23/2018 [facility] CHEM PANEL Magnesium Lvl 1.6 mg/dL 1.8 - 2.4 09/23/2018 [facility] CHEM PANEL Amylase Lvl 53 unit/L 25 - 115 09/23/2018 [facility] CHEM PANEL Vitamin D, 25-OH, Total 22.7 ng/mL 30.0 - 100.0 09/23/2018 [facility] CHEM PANEL Uric Acid 7.2 mg/dL 3.8 - 8.0 09/23/2018 [facility] ELECTROLYTES Sodium Lvl 138 meq/L 135 - 145 09/23/2018 [facility] ELECTROLYTES eGFR 48 mL/min/1.73m2 09/23/2018 Result Comment: The eGFR is calculated using the [...] from the National Kidney Disease Education Program (NKDEP) which additionally recommends that when the eGFR is used in patients with extremes of body mass index for purposes of drug dosing, the eGFR should be multiplied by the estimated BMI. [facility] ELECTROLYTES Chloride Lvl 106 meq/L 95 - 109 09/23/2018 [facility] ELECTROLYTES Potassium Lvl 3.3 meq/L 3.5 - 5.1 09/23/2018 [facility] ELECTROLYTES CO2 26 meq/L 24 - 32 09/23/2018 [facility] ELECTROLYTES Calcium Lvl 8.5 mg/dL 8.5 - 10.5 09/23/2018 [facility] ELECTROLYTES AGAP 9.3 meq/L 10.0 - 20.0 09/23/2018 [facility] ELECTROLYTES Glucose Lvl 118 mg/dL 70 - 99 09/23/2018 [facility] ELECTROLYTES Creatinine Lvl 1.56 mg/dL 0.50 - 1.40 09/23/2018 [facility] ELECTROLYTES BUN 17 mg/dL 7 - 22 09/23/2018 [facility] HEMATOLOGY Sed Rate 15 mm/h 0 - 15 09/23/2018 [facility] IMMUNOLOGY Homocyst Tot 12.2 umol/L 3.7 - 13.9 09/23/2018 [facility] LIPIDS HDL 32 mg/dL >=61 mg/dL 09/23/2018 [facility] LIPIDS Trig 67 mg/dL <=149 mg/dL 09/23/2018 [facility] LIPIDS Chol 100 mg/dL <=199 mg/dL 09/23/2018 [facility] LIPIDS VLDL 13 09/23/2018 [facility] LIPIDS LDL (Calculated) 55 mg/dL <=99 mg/dL 09/23/2018 [facility] LIPIDS CHD Risk 3.12 4.00 - 7.30 09/23/2018 [facility] SPECIAL CHEMISTRY Hgb A1C 5.9 % <=5.6 % 09/23/2018 [facility] URINE AND STOOL UA WBC 0 /HPF 0 - 5 09/22/2018 [facility] URINE AND STOOL UA Sq Epi None Seen (09/22/18 5:33 PM) Few 09/22/2018 [facility] URINE AND STOOL UA Bacteria None Seen (09/22/18 5:33 PM) None Seen 09/22/2018 [facility] URINE AND STOOL UA RBC 0 /HPF 0 - 2 09/22/2018 [facility] URINE AND STOOL UA Leuk Est Negative (09/22/18 5:33 PM) Negative 09/22/2018 [facility] URINE AND STOOL UA Nitrite Negative (09/22/18 5:33 PM) Negative 09/22/2018 [facility] URINE AND STOOL UA Urobilinogen <=1.0 mg/dL 0.1 - 1.0 09/22/2018 [facility] URINE AND STOOL UA Bili Negative *NA* (09/22/18 5:33 PM) Negative 09/22/2018 [facility] URINE AND STOOL UA Blood Negative (09/22/18 5:33 PM) Negative 09/22/2018 [facility] URINE AND STOOL UA Ketones Negative *NA* (09/22/18 5:33 PM) Negative 09/22/2018 [facility] URINE AND STOOL UA pH 6.0 5.0 - 8.0 09/22/2018 [facility] URINE AND STOOL UA Spec Grav 1.013 <=1.030 09/22/2018 [facility] URINE AND STOOL UA Protein Negative (09/22/18 5:33 PM) Negative 09/22/2018 [facility] URINE AND STOOL UA Glucose Negative *NA* (09/22/18 5:33 PM) Negative 09/22/2018 [facility] URINE AND STOOL UA Color Ltyellow 09/22/2018 [facility] URINE AND STOOL UA Turbidity Clear (09/22/18 5:33 PM) Clear 09/22/2018 [facility] Chest 1view DX Chest 1view DX Clinical Indication:58 years Male with Dyspnea - Dyspnea Comparison: Chest x-ray 06/23/2018, CT abdomen and pelvis 09/21/2018 FINDINGS: Lines: Left implantable cardiac defibrillator is unchanged The single frontal chest radiograph shows normal lung volumes. No interstitial or airspace opacities. Trace left pleural effusion. No pneumothorax. Cardiac silhouette is stable, enlarged. Pulmonary vasculature is enlarged. Mediastinal surgical changes. The trachea is midline. There are no acute osseous abnormalities noted. IMPRESSION: 1. Cardiomegaly and central venous congestion. 2. Trace left pleural effusion. 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 The hepatic and biliary phases are normal. There is activity noted at the gallbladder at 15 minutes. No activity is noted within the bowel at 60 minutes. Range of interest was placed over the gallbladder and the patient was administered 1.8 micrograms CCK IV over 30 minutes with gallbladder ejection fraction determined to be 80%. Activity within the bowel is noted on the 5 minute post CCK administration image. The patient described no symptoms during CCK administration. IMPRESSION: 1. Minimal delay in biliary to bowel transit; otherwise, normal HIDA scan with normal gallbladder ejection fraction. Correlation with liver function tests is recommended to determine the presence or absence of biliary stasis or obstructive pattern. SL: [id number] 09/22/2018 - - Read by: Carroll Villalobos MD Dictated Date/time: 09/23/18 12:43 Electronically Signed by: Carroll Villalobos MD 09/23/18 13:01 FINAL REPORT [facility] CHEM PANEL eGFR 48 mL/min/1.73m2 09/22/2018 Result Comment: The eGFR is calculated using the [...] from the National Kidney Disease Education Program (NKDEP) which additionally recommends that when the eGFR is used in patients with extremes of body mass index for purposes of drug dosing, the eGFR should be multiplied by the estimated BMI. [facility] CHEM PANEL Alk Phos 83 unit/L 39 - 136 09/22/2018 [facility] CHEM PANEL AST 8 unit/L 0 - 37 09/22/2018 [facility] CHEM PANEL A/G Ratio 0.9 0.7 - 1.6 09/22/2018 [facility] CHEM PANEL Bili Total 0.6 mg/dL 0.2 - 1.3 09/22/2018 [facility] CHEM PANEL Globulin 3.6 g/dL 2.7 - 4.2 09/22/2018 [facility] CHEM PANEL B/C Ratio 17 6 - 25 09/22/2018 [facility] CHEM PANEL AGAP 7.4 meq/L 10.0 - 20.0 09/22/2018 [facility] CHEM PANEL ALT 15 unit/L 0 - 65 09/22/2018 [facility] CHEM PANEL Calcium Lvl 8.1 mg/dL 8.5 - 10.5 09/22/2018 [facility] CHEM PANEL Albumin Lvl 3.3 g/dL 3.5 - 5.0 09/22/2018 [facility] CHEM PANEL Total Protein 6.9 g/dL 6.4 - 8.4 09/22/2018 [facility] CHEM PANEL BUN 26 mg/dL 7 - 22 09/22/2018 [facility] CHEM PANEL Chloride Lvl 108 meq/L 95 - 109 09/22/2018 [facility] CHEM PANEL CO2 27 meq/L 24 - 32 09/22/2018 [facility] CHEM PANEL Sodium Lvl 139 meq/L 135 - 145 09/22/2018 [facility] CHEM PANEL Creatinine Lvl 1.56 mg/dL 0.50 - 1.40 09/22/2018 [facility] CHEM PANEL Glucose Lvl 88 mg/dL 70 - 99 09/22/2018 [facility] CHEM PANEL Potassium Lvl 3.4 meq/L 3.5 - 5.1 09/22/2018 [facility] HEMATOLOGY PT 16.6 s 12.0 - 14.7 09/22/2018 [facility] HEMATOLOGY INR 1.37 0.85 - 1.17 09/22/2018 [facility] Platelet 189 K/CMM 133 - 450 09/22/2018 [facility] MPV 8.8 fL 7.4 - 10.4 09/22/2018 [facility] RDW 17.7 % 11.5 - 14.5 09/22/2018 [facility] MCH 24.6 pg 27.0 - 31.0 09/22/2018 [facility] MCHC 31.6 g/dL 32.0 - 36.0 09/22/2018 [facility] Hct 33.6 % 42.0 - 54.0 09/22/2018 [facility] MCV 77.9 fL 80.0 - 94.0 09/22/2018 [facility] WBC 6.9 K/CMM 3.7 - 10.4 09/22/2018 [facility] RBC 4.31 M/CMM 4.70 - 6.10 09/22/2018 [facility] Hgb 10.6 g/dL 14.0 - 18.0 09/22/2018 [facility] Eosinophils # 0.1 K/CMM 0.0 - 0.5 09/22/2018 [facility] Lymphocytes # 1.2 K/CMM 1.0 - 5.5 09/22/2018 [facility] Neutrophils # 4.7 K/CMM 1.5 - 8.1 09/22/2018 [facility] Monocytes # 0.8 K/CMM 0.0 - 0.8 09/22/2018 [facility] Basophils 1.1 % 0.0 - 1.0 09/22/2018 [facility] Lymphocytes 17.3 % 20.0 - 40.0 09/22/2018 [facility] Eosinophils 1.8 % 0.0 - 4.0 09/22/2018 [facility] Monocytes 11.6 % 2.0 - 12.0 09/22/2018 [facility] Segs 68.2 % 45.0 - 75.0 09/22/2018 [facility] Basophils # 0.1 K/CMM 0.0 - 0.2 09/22/2018 [facility] Microcyte 1+ *ABN* (09/22/18 6:48 AM) None Seen 09/22/2018 [facility] Abdomen RUQ US Abdomen RUQ US Clinical Indication: - Abdominal pain; Comparison: September 21, 2018 CT scan TECHNIQUE: Grayscale and limited color sonographic evaluation of the right upper quadrant of the abdomen and gallbladder region was performed with standard technique. FINDINGS: LIVER: The visualized liver shows normal contour, size upper normal to mildly enlarged at 17.7 cm, and morphology with normal parenchymal echo texture. The limited visualized portal vein is grossly patent. BILE DUCTS: The intrahepatic and extrahepatic bile ducts are not dilated with the common bile duct measuring 6 mm. The distal common bile duct is not well seen. GALLBLADDER: There are no gallstones, gallbladder sludge, pericholecystic fluid or wall thickening. PANCREAS: Not well-visualized due to bowel gas. KIDNEY: The right kidney measures 10.9 x 5.6 x 5.3 cm. Nonspecific small echogenic focus superior pole which is not correlated with CT No hydronephrosis AORTA AND INFERIOR VENA CAVA: Not well-visualized. ASCITES: Mild perihepatic ascites. IMPRESSION: 1. Mild perihepatic ascites 2. Liver upper normal to mildly enlarged in size 3. Otherwise unremarkable SL: [id number] 09/22/2018 - - Read by: Ricardo Canela MD Dictated Date/time: 09/22/18 14:10 Electronically Signed by: Ricardo Canela MD 09/22/18 14:13 FINAL REPORT [facility] CHEM PANEL B/C Ratio 19 6 - 25 09/22/2018 [facility] CHEM PANEL Globulin 3.9 g/dL 2.7 - 4.2 09/22/2018 [facility] CHEM PANEL A/G Ratio 0.9 0.7 - 1.6 09/22/2018 [facility] CHEM PANEL Bili Total 0.4 mg/dL 0.2 - 1.3 09/22/2018 [facility] CHEM PANEL Albumin Lvl 3.6 g/dL 3.5 - 5.0 09/22/2018 [facility] CHEM PANEL Alk Phos 90 unit/L 39 - 136 09/22/2018 [facility] CHEM PANEL Total Protein 7.5 g/dL 6.4 - 8.4 09/22/2018 [facility] CHEM PANEL ALT 19 unit/L 0 - 65 09/22/2018 [facility] CHEM PANEL AST 13 unit/L 0 - 37 09/22/2018 [facility] HEMATOLOGY Microcyte 1+ *ABN* (09/21/18 9:25 PM) None Seen 09/22/2018 [facility] Lymphocytes # 1.9 K/CMM 1.0 - 5.5 09/22/2018 [facility] Basophils # 0.1 K/CMM 0.0 - 0.2 09/22/2018 [facility] Eosinophils # 0.2 K/CMM 0.0 - 0.5 09/22/2018 [facility] Monocytes # 0.9 K/CMM 0.0 - 0.8 09/22/2018 [facility] Monocytes 11.2 % 2.0 - 12.0 09/22/2018 [facility] Eosinophils 1.9 % 0.0 - 4.0 09/22/2018 [facility] Segs 61.9 % 45.0 - 75.0 09/22/2018 [facility] Neutrophils # 5.0 K/CMM 1.5 - 8.1 09/22/2018 [facility] Lymphocytes 24.0 % 20.0 - 40.0 09/22/2018 [facility] Basophils 1.0 % 0.0 - 1.0 09/22/2018 [facility] Hgb 11.5 g/dL 14.0 - 18.0 09/22/2018 [facility] RBC 4.71 M/CMM 4.70 - 6.10 09/22/2018 [facility] WBC 8.0 K/CMM 3.7 - 10.4 09/22/2018 [facility] MCV 77.4 fL 80.0 - 94.0 09/22/2018 [facility] Hct 36.5 % 42.0 - 54.0 09/22/2018 [facility] MCHC 31.6 g/dL 32.0 - 36.0 09/22/2018 [facility] MCH 24.5 pg 27.0 - 31.0 09/22/2018 [facility] RDW 17.5 % 11.5 - 14.5 09/22/2018 [facility] MPV 8.8 fL 7.4 - 10.4 09/22/2018 [facility] Platelet 212 K/CMM 133 - 450 09/22/2018 [facility] Abd/Pelvis Liver Protocol w IV/Abd wo CT Abd/Pelvis Liver Protocol w IV/Abd wo CT Clinical Indication: Mass. Diffuse abdominal pain. Comparison: No prior CT of the abdomen submitted for comparison. TECHNIQUE: Helical imaging of the abdomen was performed before and after injection of IV contrast, from the diaphragm through the iliac crest with multiplanar reformations obtained. The pelvis is incompletely imaged, which limits evaluation. IV CONTRAST: 100 mL of Omnipaque GI CONTRAST: Oral contrast was administered. CT imaging performed at this location utilizes radiation dose optimization techniques which include one or more of the following: -Automated exposure control -Adjustment of the mA and/or kV according to patient size -Use of iterative reconstruction technique CT Radiation Dose DLP 1953.29 mGy-cm FINDINGS: LOWER CHEST: A small left pleural effusion is seen. There is an enlarged heart. LIVER: There are subcentimeter too small to characterize hypodensities within the liver. Some of the hypodensities opacify on the delayed images. Otherwise, no evidence of hepatic mass is seen. The portal vein is normal in caliber. BILIARY TREE: The common bile duct is normal in caliber without evidence of filling defects. GALLBLADDER: There is a distended gallbladder with mild gallbladder wall thickening. PANCREAS: The pancreas is unremarkable. The pancreatic duct is normal in caliber. SPLEEN: The spleen is normal in size and there are no parenchymal abnormalities. ADRENALS: The right adrenal gland is unremarkable. The left adrenal gland is unremarkable. KIDNEYS: The noncontrast images of the kidneys demonstrate no renal or ureteral calculi, nor evidence of hydronephrosis or hydroureter. The kidneys demonstrates normal contrast enhancement. There are no masses. BOWEL: The visualized portion of the esophagus is unremarkable. The stomach is unremarkable. The visualized small bowel is normal in caliber. The visualized colon is unremarkable. A moderate amount of fecal material is noted within the colon. APPENDIX: The appendix is not included in the [id number]. PERITONEUM: A small amount of abdominal free fluid is identified. There is no evidence of free air. SOFT TISSUES: A fat-containing umbilical hernia is seen measuring 3.8 x 3.5 cm. LYMPH NODES: There are small bilateral retroperitoneal and mesenteric lymph nodes, which are most likely reactive in etiology. VASCULATURE: Mild atherosclerotic calcifications are seen of the nonaneurysmal abdominal aorta. MUSCULOSKELETAL: There are degenerative changes within the visualized spine. IMPRESSION: 1. Subcentimeter too small to catheterize hypodensities within the liver. Some of these hypodensities opacify on the delayed images and may represent hemangiomas. Otherwise, no definite hepatic mass is seen. 2. Distended gallbladder with gallbladder wall thickening. Cholecystitis in the differential. Consider right upper quadrant abdominal ultrasound and/or nuclear medicine hepatobiliary scan for further evaluation. 3. Small amount of abdominal free fluid. Trace left pleural effusion. 4. Partially visualized cardiomegaly. SL: [id number] 09/21/2018 - - Read by: Tobi Martinez MD Dictated Date/time: 09/22/18 00:42 Electronically Signed by: Tobi Martinez MD 09/22/18 01:01 FINAL REPORT [facility] ANEMIA STUDY Iron 25 ug/dl 45 - 160 09/21/2018 [facility] ANEMIA STUDY TIBC 207 ug/dl 228 - 428 09/21/2018 [facility] ANEMIA STUDY UIBC 182 ug/dl 110 - 370 09/21/2018 [facility] ANEMIA STUDY % [place] Fe 12 % 12 - 57 09/21/2018 [facility] ANEMIA STUDY Ferritin Lvl 18 ng/mL 22 - 275 09/21/2018 [facility] A-1-AT 166 mg/dL 83 - 199 09/21/2018 [facility] Hep A Tot Negative *NA* (09/21/18 3:10 PM) Negative 09/21/2018 [facility] SMA Screen Negative (09/21/18 3:10 PM) Negative 09/21/2018 [facility] Hep Bs Ag Negative *NA* (09/21/18 3:10 PM) Negative 09/21/2018 [facility] Hep B Core Ab Negative *NA* (09/21/18 3:10 PM) Negative 09/21/2018 [facility] CERULOPLASMIN 33 mg/dL 20 - 60 09/21/2018 [facility] AMA Ab Scr Negative (09/21/18 3:10 PM) Negative 09/21/2018 [facility] REY Negative (09/21/18 3:10 PM) Negative 09/21/2018 [facility] TUMOR MARKERS AFP 1.3 ng/mL 0.0 - 11.0 09/21/2018 [facility] Chest 2 views DX Chest 2 views DX EXAM: PA AND LATERAL CHEST X RAY DATE:- 06/23/2018 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 ORDERING PHYSICIAN: Santana Snell DO CLINICAL INDICATION: - R06.02 Shortness of breath; R06.2 Wheezing;I50.9 Heart failure, unspecified; TECHNIQUE: PA and lateral views of chest COMPARISON: Unavailable FINDINGS: The lungs are well inflated. There is a moderate left pleural effusion with left lower lobe and lingular airspace opacity. Chronic silhouette is mildly enlarged. There is a multilead left-sided transvenous cardiac device without lead interruption. Mediastinal contours are normal. There is no acute bony abnormality. IMPRESSION: 1. Moderate left pleural effusion with associated airspace opacity represent atelectasis, pneumonia, or layering pleural fluid 2. Prominent cardiac silhouette without signs of acute CHF 06/23/2018 - - Read by: Ricardo Dasilva MD Dictated Date/time: 06/23/18 11:18 Electronically Signed by: Ricardo Dasilva MD 06/23/18 11:19 FINAL REPORT [facility] Retroperitoneal complete w Doppler US Retroperitoneal complete w Doppler US EXAM: US RETROPERITONEAL COMPLETE WITH RENAL DOPPLER DATE: 03/30/2017 1:29 PM CDT INDICATION: - renal artery stenosis ADDITIONAL INFORMATION: None. COMPARISON: None. TECHNIQUE: Multiplanar grayscale and color Doppler ultrasound of the kidneys, aorta, IVC and urinary bladder. FINDINGS: Right kidney: Hydronephrosis: None. Size: 11.3 x 4.9 x 6.1 cm. Echogenicity: Normal. Calculi: Echogenic 5 mm focus with twinkle artifact is present in the upper pole of the right kidney, representing small nonobstructive stone. Cysts: None. Masses: None. Left kidney: Hydronephrosis: None. Size: 10.2 x 5.3 x 4.9 cm. Echogenicity: Normal. Calculi: None. Cysts: None. Masses: None. Lindsay scale, duplex color Doppler and spectral waveform analysis of the bilateral renal arteries, and renal veins are available for review. There is no evidence of elevation of the peak systolic velocities, no evidence of parvus or tardus waveform. Peak systolic velocity in the right main renal artery of 57 cm/s, and left renal artery of 92.1 cm/s. Resistive indicis on the right range from 0.43 to 0.57 in the lower pole. On the left side resistive indicis range from 0.57-0.58. Renal artery to aorta ratio of 1 on the right, and 1.6 on the left. Bilateral renal veins appear to be patent. Proximal abdominal aorta: Normal Inferior vena cava: Normal. Retroperitoneal/periaortic region: Normal. Bladder: Is moderately distended, with bilateral ureteral jets demonstrated. IMPRESSION: 1. A 5 mm nonobstructive stone upper pole right kidney. Otherwise unremarkable renal ultrasound. 2. No evidence of renal artery stenosis. 03/30/2017 - - Read by: Gladis Napoles MD Dictated Date/time: 03/30/17 14:48 Electronically Signed by: Gladis Napoles 03/30/17 15:04 FINAL REPORT [facility] Vital Signs Vital Sign Value Date Comments Source Systolic (mm Hg) 117 09/24/2018 [facility] Diastolic (mm Hg) 63 09/24/2018 [facility] Respitory Rate 20 09/24/2018 [facility] Temperature Oral (F) 98.3 F 09/24/2018 [facility] Heart Rate 60 09/24/2018 [facility] Heart Rate 67 09/24/2018 [facility] Temperature Oral (F) 98.4 F 09/24/2018 [facility] Systolic (mm Hg) 132 09/24/2018 [facility] Diastolic (mm Hg) 72 09/24/2018 [facility] Respitory Rate 18 09/24/2018 [facility] Respitory Rate 18 09/24/2018 [facility] Systolic (mm Hg) 114 09/24/2018 [facility] Diastolic (mm Hg) 63 09/24/2018 [facility] Temperature Oral (F) 98.5 F 09/24/2018 [facility] Heart Rate 59 09/24/2018 [facility] Weight 92.727 09/21/2018 [facility] BMI Calculated 35.09 09/21/2018 [facility] Height 162.56 cm 09/21/2018 [facility] Temperature Oral (F) 97.6 F 03/09/[address] [facility] [place] [place] Respitory Rate 18 03/09/[address] [facility] [place] [place] Systolic (mm Hg) 170 03/09/[address] [facility] [place] [place] Diastolic (mm Hg) 110 03/09/[address] [facility] [place] [place] Heart Rate 70 03/09/[address] [facility] [place] [place] BMI Calculated 33.71 03/09/[address] [facility] [place] [place] Weight 89.091 03/09/[address] [facility] [place] [place] Height 162.56 cm 03/09/[address] [facility] [place] [place] Encounters Location Location Details Encounter Type Encounter Number Reason For Visit Attending Provider ADM Date DC Date Status Source [facility] Outpatient [id number] Israel Bazzi 03/09/2017 03/10/2017 [facility] Outpatient [facility] Diag Services [id number] Israel Bazzi 03/30/2017 03/31/2017 [facility] Outpatient [id number] Israel Bazzi 09/07/2017 09/07/[address] [facility] [place] [place] Outpatient [id number] NEFTALY COCHRAN 09/22/2018 Active [facility] Inpatient [id number] Miguelina Still 09/23/2018 09/24/2018 [facility] Procedures Procedure Code Date Perfomer Comments Source Pacemaker care [id number] [facility]
--- OUTSIDE RECORDS SUMMARY | 2018-10-22 11:57 | XMS REPORT | Summary of Care ---
Author Author [facility] Organization [facility] Address Unknown Phone Unavailable Encounter [facility] Blayne(CHRIS) [id number] Date(s): 03/30/17 - 03/30/17 [facility] [address] [place] [phone] Discharge Disposition: Home or Self Care Attending Physician: Israel Bazzi MD Vital Signs No data available for this section Problem List Condition Effective Dates Status Health Status Informant Coronary artery Active disease(Confirmed) Chronic renal Active insufficiency(Confir med) Chronic systolic Active heart failure(Confirmed) Diverticulosis(Confi Resolved rmed) [place] (myocardial Resolved infarction)(Confirme d) Hypertension(Confirm Active ed) Ischemic Active cardiomyopathy(Confi rmed) Hernia, Active umbilical(Confirmed) Allergies, Adverse Reactions, Alerts Substance Reaction Severity Status atenolol Active Medications No data available for this section Results No data available for this section Immunizations No data available for this section Procedures No data available for this section Social History Social History Type Response Smoking Status Former smoker; Ready to change: No; Concerns about tobacco use in household: No; Exposure to Tobacco Smoke None; Cigarette Smoking Last 365 Days No; Reg Smoking Cessation Counseling No Assessment and Plan No data available for this section
--- OUTSIDE RECORDS SUMMARY | 2018-10-22 11:57 | XMS REPORT ---
Author Author [facility] Address Unknown Phone Unavailable Care Team Providers Care Fire Code Inspector Name Role Phone LIBBY JAVIER Unavailable Unavailable WINSOME LOPEZ Unavailable Unavailable Payers Payer Name Policy Type Policy Number Effective Date Expiration Date Problems This patient has no known problems. Allergies, Adverse Reactions, Alerts Allergy Name Allergy Type Status Severity Reaction(s) Onset Date Inactive Date Treating Clinician Comments divalproex sodium DA Active SV 2018-05-18 00:00:00 amphetamine DA Active U 2018-05-18 00:00:00 dextroamphetamine DA Active U 2018-05-18 00:00:00 risperidone DA Active U 2018-05-18 00:00:00 divalproex sodium DA Active SV 2017-04-20 00:00:00 amphetamine DA Active U 2017-04-20 00:00:00 dextroamphetamine DA Active U 2017-04-20 00:00:00 risperidone DA Active U 2017-04-20 00:00:00 hydralazine DA Active SV 2017-04-20 00:00:00 Medications This patient has no known medications. Encounters Start Date/Time End Date/Time Encounter Type Admission Type Attending Clinicians Care Facility Care Department Encounter ID 2018-03-03 00:00:00 2018-03-03 00:00:00 Outpatient [facility] [id number] 2018-01-18 00:00:00 2018-01-18 00:00:00 Outpatient [facility] [id number] 2018-01-05 12:10:12 2018-01-05 12:10:12 Outpatient [facility] [id number] 2018-01-02 18:53:37 2018-01-02 18:53:37 Emergency [facility] [id number] 2018-01-02 17:11:21 2018-01-02 17:11:21 Emergency [facility] [id number] 2018-01-02 17:08:33 2018-01-02 17:08:33 Outpatient [facility] [id number] 2018-01-02 00:00:00 2018-01-02 00:00:00 Emergency [facility] [id number] 2018-01-02 00:00:00 2018-01-02 00:00:00 Outpatient [facility] [id number] Results Test Description Test Time Test Comments Text Results Atomic Results Result Comments B-TYPE NATRIURETIC FACTOR (BNP) 2017-07-29 13:52:00 B-TYPE NATRIURETIC PEPTIDE (BEAKER) (test lhjy=926) 317 pg/mL 0-100 [id number] 13:43:00* Test Item Value Reference Range Comments MAGNESIUM (BEAKER) (test rtwz=205) 1.7 mg/dL 1.6-2.6 BASIC METABOLIC [id number] 13:43:00* Test Item Value Reference Range Comments SODIUM (BEAKER) (test rqdj=732) 137 meq/L 136-145 POTASSIUM (BEAKER) (test rayf=818) 4.3 meq/L 3.5-5.1 CHLORIDE (BEAKER) (test ythh=120) 104 meq/L 98-107 CO2 (BEAKER) (test znyn=123) 23 meq/L 22-29 BLOOD UREA NITROGEN (BEAKER) (test pwsw=083) 21 mg/dL 7-21 CREATININE (BEAKER) (test lpzn=168) 1.39 mg/dL 0.57-1.25 GLUCOSE RANDOM (BEAKER) (test mgjh=651) 103 mg/dL 70-105 CALCIUM (BEAKER) (test hiaa=059) 9.7 mg/dL 8.4-10.2 EGFR (BEAKER) (test xceg=4892) 53 mL/min/1.73 sq m ESTIMATED GFR IS NOT ACCURATE CREATININE CLEARANCE IN PREDICTING GLOMERULAR FILTRATION RATE. ESTIMATED GFR IS NOT APPLICABLE FOR DIALYSIS PATIENTS. [id number] 07:34:00* Test Item Value Reference Range Comments PHOSPHORUS (BEAKER) (test riua=727) 3.4 mg/dL 2.3-4.7 [id number] 07:34:00* Test Item Value Reference Range Comments MAGNESIUM (BEAKER) (test uwlz=354) 1.9 mg/dL 1.6-2.6 BASIC METABOLIC [id number] 07:34:00* Test Item Value Reference Range Comments SODIUM (BEAKER) (test afar=376) 135 meq/L 136-145 POTASSIUM (BEAKER) (test aelh=100) 3.6 meq/L 3.5-5.1 CHLORIDE (BEAKER) (test wwci=475) 100 meq/L 98-107 CO2 (BEAKER) (test kqcx=299) 25 meq/L 22-29 BLOOD UREA NITROGEN (BEAKER) (test fjek=634) 27 mg/dL 7-21 CREATININE (BEAKER) (test xgcd=060) 2.24 mg/dL 0.57-1.25 GLUCOSE RANDOM (BEAKER) (test zmrd=695) 94 mg/dL 70-105 CALCIUM (BEAKER) (test hmvn=586) 8.6 mg/dL 8.4-10.2 EGFR (BEAKER) (test zzrk=1933) 30 mL/min/1.73 sq m ESTIMATED GFR IS NOT ACCURATE CREATININE CLEARANCE IN PREDICTING GLOMERULAR FILTRATION RATE. ESTIMATED GFR IS NOT APPLICABLE FOR DIALYSIS PATIENTS. CBC W/PLT COUNT & AUTO [id number] 07:18:00* Test Item Value Reference Range Comments WHITE BLOOD CELL COUNT (BEAKER) (test fyxr=893) 6.7 K/ L 3.5-10.5 RED BLOOD CELL COUNT (BEAKER) (test cfzn=549) 5.84 M/ L 4.63-6.08 HEMOGLOBIN (BEAKER) (test dcmw=883) 17.9 GM/DL 13.7-17.5 HEMATOCRIT (BEAKER) (test lrmo=474) 53.2 % 40.1-51.0 MEAN CORPUSCULAR VOLUME (BEAKER) (test vtfu=464) 91.1 fL 79.0-92.2 MEAN CORPUSCULAR HEMOGLOBIN (BEAKER) (test rpzf=526) 30.7 pg 25.7-32.2 MEAN CORPUSCULAR HEMOGLOBIN CONC (BEAKER) (test mqvu=144) 33.6 GM/DL 32.3-36.5 RED CELL DISTRIBUTION WIDTH (BEAKER) (test ajzc=118) 14.7 % 11.6-14.4 PLATELET COUNT (BEAKER) (test infy=448) 242 K/CU MM 150-450 MEAN PLATELET VOLUME (BEAKER) (test frzd=354) 10.6 fL 9.4-12.4 NUCLEATED RED BLOOD CELLS (BEAKER) (test cgds=311) 0 /100 WBC 0-0 NEUTROPHILS RELATIVE PERCENT (BEAKER) (test ymft=091) 60 % LYMPHOCYTES RELATIVE PERCENT (BEAKER) (test bwid=976) 22 % MONOCYTES RELATIVE PERCENT (BEAKER) (test jguh=609) 14 % EOSINOPHILS RELATIVE PERCENT (BEAKER) (test rvtt=638) 3 % BASOPHILS RELATIVE PERCENT (BEAKER) (test oilq=293) 1 % NEUTROPHILS ABSOLUTE COUNT (BEAKER) (test kqjv=467) 3.96 K/ L 1.78-5.38 LYMPHOCYTES ABSOLUTE COUNT (BEAKER) (test ejaa=140) 1.47 K/ L 1.32-3.57 MONOCYTES ABSOLUTE COUNT (BEAKER) (test tbwz=063) 0.96 K/ L 0.30-0.82 EOSINOPHILS ABSOLUTE COUNT (BEAKER) (test banf=645) 0.18 K/ L 0.04-0.54 BASOPHILS ABSOLUTE COUNT (BEAKER) (test gimn=376) 0.07 K/ L 0.01-0.08 IMMATURE GRANULOCYTES-RELATIVE PERCENT (BEAKER) (test qtjh=2028) 0 % 0-1 RETICULOCYTE [id number] 07:09:00* Test Item Value Reference Range Comments RETICULOCYTE COUNT PCT (BEAKER) (test tdig=832) 1.3 % 0.5-1.8 PERIPHERAL BLOOD SMEAR - HOLD [id number] 12:52:00* Test Item Value Reference Range Comments PERIPHERAL SMEAR SAVE (BEAKER) (test sscv=5254) saved HEMOGLOBIN AND [id number] 12:42:00* Test Item Value Reference Range Comments HEMOGLOBIN (BEAKER) (test uteh=938) 19.5 GM/DL 13.7-17.5 HEMATOCRIT (BEAKER) (test dhyw=814) 57.4 % 40.1-51.0 U/S, RENAL, [id number] 08:01:00Reason for exam:->akiFINAL REPORT Renal ultrasonography, 07/17/2017 COMPARISON: 07/21/2015 The kidneys are normal in size is right kidney measures 10 x 5.4 x 5.4 cm and the left, 10.9 x 5.3 x 4.9 cm. Remains approximately 5 mm echogenic structure in the upper pole of the right kidney that may represent a stone. No further stones, masses or changes of hydronephrosis are identified. Echogenicity of the kidneys is within normal limits. Arterial and venous blood flow can be seen in both kidneys. The adjacent abdominal aorta and inferior vena cava are unremarkable. Bladder volume is 107 cc. No definite bladder abnormalities are seen. CO NCLUSION: No significant change since the prior study. Probable small nonobstruc ting stone in the upper pole of the right kidney. Normal renal sizes and echogen icity. Signed: Shay Urbano MDReport Verified Date/Time: 07/17/2017 08:01:15 R edith Location: [address] Ultrasound Reading Room W/PLT COUNT & AUTO [id number] 07:13:00* Test Item Value Reference Range Comments WHITE BLOOD CELL COUNT (BEAKER) (test zsye=005) 5.5 K/ L 3.5-10.5 RED BLOOD CELL COUNT (BEAKER) (test mkwt=035) 6.41 M/ L 4.63-6.08 HEMOGLOBIN (BEAKER) (test wtog=907) 19.8 GM/DL 13.7-17.5 HEMATOCRIT (BEAKER) (test jzlk=914) 58.3 % 40.1-51.0 MEAN CORPUSCULAR VOLUME (BEAKER) (test cmet=337) 91.0 fL 79.0-92.2 MEAN CORPUSCULAR HEMOGLOBIN (BEAKER) (test pyfq=336) 30.9 pg 25.7-32.2 MEAN CORPUSCULAR HEMOGLOBIN CONC (BEAKER) (test lxbf=068) 34.0 GM/DL 32.3-36.5 RED CELL DISTRIBUTION WIDTH (BEAKER) (test rbhx=088) 15.9 % 11.6-14.4 PLATELET COUNT (BEAKER) (test fdpa=982) 251 K/CU MM 150-450 MEAN PLATELET VOLUME (BEAKER) (test zbuf=887) 10.3 fL 9.4-12.4 NUCLEATED RED BLOOD CELLS (BEAKER) (test zfhr=548) 0 /100 WBC 0-0 NEUTROPHILS RELATIVE PERCENT (BEAKER) (test wsoy=699) 64 % LYMPHOCYTES RELATIVE PERCENT (BEAKER) (test tbks=337) 20 % MONOCYTES RELATIVE PERCENT (BEAKER) (test wqjc=645) 12 % EOSINOPHILS RELATIVE PERCENT (BEAKER) (test pmqh=265) 3 % BASOPHILS RELATIVE PERCENT (BEAKER) (test zvby=289) 1 % NEUTROPHILS ABSOLUTE COUNT (BEAKER) (test qgzh=462) 3.50 K/ L 1.78-5.38 LYMPHOCYTES ABSOLUTE COUNT (BEAKER) (test uquz=322) 1.10 K/ L 1.32-3.57 MONOCYTES ABSOLUTE COUNT (BEAKER) (test nrsf=339) 0.66 K/ L 0.30-0.82 EOSINOPHILS ABSOLUTE COUNT (BEAKER) (test wuvu=518) 0.14 K/ L 0.04-0.54 BASOPHILS ABSOLUTE COUNT (BEAKER) (test skpf=159) 0.04 K/ L 0.01-0.08 IMMATURE GRANULOCYTES-RELATIVE PERCENT (BEAKER) (test nkdx=2292) 0 % 0-1 BASIC METABOLIC [id number] 06:25:00* Test Item Value Reference Range Comments SODIUM (BEAKER) (test phui=630) 137 meq/L 136-145 POTASSIUM (BEAKER) (test yffv=187) 3.9 meq/L 3.5-5.1 CHLORIDE (BEAKER) (test mdrf=342) 99 meq/L 98-107 CO2 (BEAKER) (test yaqe=889) 26 meq/L 22-29 BLOOD UREA NITROGEN (BEAKER) (test iioj=562) 20 mg/dL 7-21 CREATININE (BEAKER) (test iucr=246) 1.83 mg/dL 0.57-1.25 GLUCOSE RANDOM (BEAKER) (test iwfg=781) 99 mg/dL 70-105 CALCIUM (BEAKER) (test tojz=958) 9.5 mg/dL 8.4-10.2 EGFR (BEAKER) (test fgdd=1964) 38 mL/min/1.73 sq m ESTIMATED GFR IS NOT ACCURATE CREATININE CLEARANCE IN PREDICTING GLOMERULAR FILTRATION RATE. ESTIMATED GFR IS NOT APPLICABLE FOR DIALYSIS PATIENTS. [id number] 06:24:00* Test Item Value Reference Range Comments MAGNESIUM (BEAKER) (test ztio=054) 1.9 mg/dL 1.6-2.6 Specimen slightly hemolyzed [id number] 06:24:00* Test Item Value Reference Range Comments PHOSPHORUS (BEAKER) (test xffm=439) 5.0 mg/dL 2.3-4.7 Specimen slightly hemolyzed BASIC METABOLIC [id number] 06:24:00* Test Item Value Reference Range Comments SODIUM (BEAKER) (test cavq=475) 137 meq/L 136-145 POTASSIUM (BEAKER) (test cxos=298) 4.0 meq/L 3.5-5.1 Specimen slightly hemolyzed CHLORIDE (BEAKER) (test dyna=282) 99 meq/L 98-107 CO2 (BEAKER) (test gwhw=407) 25 meq/L 22-29 BLOOD UREA NITROGEN (BEAKER) (test npfq=203) 20 mg/dL 7-21 CREATININE (BEAKER) (test thvu=186) 1.87 mg/dL 0.57-1.25 Specimen slightly hemolyzed GLUCOSE RANDOM (BEAKER) (test cztl=886) 100 mg/dL 70-105 CALCIUM (BEAKER) (test zdos=621) 9.3 mg/dL 8.4-10.2 EGFR (BEAKER) (test tblq=6580) 37 mL/min/1.73 sq m ESTIMATED GFR IS NOT ACCURATE CREATININE CLEARANCE IN PREDICTING GLOMERULAR FILTRATION RATE. ESTIMATED GFR IS NOT APPLICABLE FOR DIALYSIS PATIENTS. CBC (HEMOGRAM ONLY)2017-07-17 05:56:00* Test Item Value Reference Range Comments WHITE BLOOD CELL COUNT (BEAKER) (test oyim=388) 5.5 K/ L 3.5-10.5 RED BLOOD CELL COUNT (BEAKER) (test vggb=788) 6.41 M/ L 4.63-6.08 HEMOGLOBIN (BEAKER) (test nvrm=584) 19.8 GM/DL 13.7-17.5 HEMATOCRIT (BEAKER) (test mvac=546) 58.3 % 40.1-51.0 MEAN CORPUSCULAR VOLUME (BEAKER) (test ihgb=046) 91.0 fL 79.0-92.2 MEAN CORPUSCULAR HEMOGLOBIN (BEAKER) (test emtm=184) 30.9 pg 25.7-32.2 MEAN CORPUSCULAR HEMOGLOBIN CONC (BEAKER) (test exiv=268) 34.0 GM/DL 32.3-36.5 RED CELL DISTRIBUTION WIDTH (BEAKER) (test prrf=783) 15.9 % 11.6-14.4 PLATELET COUNT (BEAKER) (test jspx=287) 251 K/CU MM 150-450 MEAN PLATELET VOLUME (BEAKER) (test uyyz=357) 10.3 fL 9.4-12.4 NUCLEATED RED BLOOD CELLS (BEAKER) (test zueb=329) 0 /100 WBC 0-0 [id number] 20:17:00* Test Item Value Reference Range Comments ACTIVATED CLOTTING TIME (BEAKER) (test msdn=641) 615 sec TESTED AT [facility] [address] [facility] [address] TSH/FREE T4 IF [id number] 18:05:00* Test Item Value Reference Range Comments THYROID STIMULATING HORMONE (BEAKER) (test uuab=036) 2.12 uIU/mL 0.35-4.94 BASIC METABOLIC [id number] 07:35:00* Test Item Value Reference Range Comments SODIUM (BEAKER) (test otay=293) 140 meq/L 136-145 POTASSIUM (BEAKER) (test nyim=800) 3.7 meq/L 3.5-5.1 CHLORIDE (BEAKER) (test wxdh=135) 103 meq/L 98-107 CO2 (BEAKER) (test fqrn=708) 28 meq/L 22-29 BLOOD UREA NITROGEN (BEAKER) (test mhcv=663) 16 mg/dL 7-21 CREATININE (BEAKER) (test bdaq=328) 1.47 mg/dL 0.57-1.25 GLUCOSE RANDOM (BEAKER) (test yljv=989) 105 mg/dL 70-105 CALCIUM (BEAKER) (test uxwk=267) 9.4 mg/dL 8.4-10.2 EGFR (BEAKER) (test arzk=2886) 49 mL/min/1.73 sq m ESTIMATED GFR IS NOT ACCURATE CREATININE CLEARANCE IN PREDICTING GLOMERULAR FILTRATION RATE. ESTIMATED GFR IS NOT APPLICABLE FOR DIALYSIS PATIENTS. [id number] 07:29:00* Test Item Value Reference Range Comments PHOSPHORUS (BEAKER) (test mwjs=370) 3.1 mg/dL 2.3-4.7 [id number] 07:29:00* Test Item Value Reference Range Comments MAGNESIUM (BEAKER) (test sljk=144) 1.9 mg/dL 1.6-2.6 CREATINE KINASE (CK), TOTAL AND [id number] 07:29:00* Test Item Value Reference Range Comments CREATINE KINASE TOTAL (BEAKER) (test dyrp=980) 75 U/L 29-200 CREATINE KINASE-MB (BEAKER) (test bkwy=100) 1.6 ng/mL 0.0-6.6 CREATINE KINASE-MB INDEX (BEAKER) (test tqhz=898) 2.1 % CK-MB Reference Range:<6.7 Normal6.7-10.0 Borderline>10.0 Abnormal TROPONIN [id number] 07:20:00* Test Item Value Reference Range Comments TROPONIN I (BEAKER) (test nsar=977) 0.04 ng/mL 0.00-0.03 Troponin I (TnI) levels must be interpreted in the context of the presenting sym ptoms and the clinical findings. Elevated TnI levels indicate myocardial damage, but are not specific for ischemic heart disease. Elevated TnI levels are seen in patients with other cardiac conditions (including myocarditis and congestive h eart failure), and slight TnI elevations occur in patients with other conditions , including sepsis, renal failure, acidosis, acute neurological disease, and per sistent tachyarrhythmia.CBC W/PLT COUNT & AUTO [id number] 07:00:00* Test Item Value Reference Range Comments WHITE BLOOD CELL COUNT (BEAKER) (test oler=705) 4.9 K/ L 3.5-10.5 RED BLOOD CELL COUNT (BEAKER) (test jvry=750) 5.91 M/ L 4.63-6.08 HEMOGLOBIN (BEAKER) (test wuxt=297) 18.4 GM/DL 13.7-17.5 HEMATOCRIT (BEAKER) (test groe=444) 53.9 % 40.1-51.0 MEAN CORPUSCULAR VOLUME (BEAKER) (test iqpq=705) 91.2 fL 79.0-92.2 MEAN CORPUSCULAR HEMOGLOBIN (BEAKER) (test ldmw=852) 31.1 pg 25.7-32.2 MEAN CORPUSCULAR HEMOGLOBIN CONC (BEAKER) (test iomb=076) 34.1 GM/DL 32.3-36.5 RED CELL DISTRIBUTION WIDTH (BEAKER) (test ezbn=990) 14.6 % 11.6-14.4 PLATELET COUNT (BEAKER) (test twnj=724) 231 K/CU MM 150-450 MEAN PLATELET VOLUME (BEAKER) (test atcf=577) 10.5 fL 9.4-12.4 NUCLEATED RED BLOOD CELLS (BEAKER) (test bdkj=078) 0 /100 WBC 0-0 NEUTROPHILS RELATIVE PERCENT (BEAKER) (test olpb=893) 56 % LYMPHOCYTES RELATIVE PERCENT (BEAKER) (test uylz=144) 25 % MONOCYTES RELATIVE PERCENT (BEAKER) (test exvl=937) 12 % EOSINOPHILS RELATIVE PERCENT (BEAKER) (test xhao=739) 5 % BASOPHILS RELATIVE PERCENT (BEAKER) (test ukjk=049) 1 % NEUTROPHILS ABSOLUTE COUNT (BEAKER) (test tibl=900) 2.71 K/ L 1.78-5.38 LYMPHOCYTES ABSOLUTE COUNT (BEAKER) (test gsxt=891) 1.22 K/ L 1.32-3.57 MONOCYTES ABSOLUTE COUNT (BEAKER) (test jzoe=122) 0.60 K/ L 0.30-0.82 EOSINOPHILS ABSOLUTE COUNT (BEAKER) (test zlno=065) 0.25 K/ L 0.04-0.54 BASOPHILS ABSOLUTE COUNT (BEAKER) (test repe=315) 0.07 K/ L 0.01-0.08 IMMATURE GRANULOCYTES-RELATIVE PERCENT (BEAKER) (test vyhd=7321) 0 % 0-1 CT, BRAIN, WITHOUT [id number] 01:45:00FINAL REPORT EXAMINATION NONCONTRAST HEAD CT SCAN CLINICAL HISTORY:Cerebrovascular accident COMPARISON CT: 07/15/2017 TECHNIQUE: Axial tomographic images were obtained through the brain from the vertex to the skull base without intravenous contrast. The exam was performed according to our departmental dose optimization program which includes automated exposure control, adjustment of the mA and/or kV according to patient's size and/or use of iterative reconstructive technique. FINDINGS: Generalized volume loss, deep white matter changes and intracranial calcific atherosclerosis are again noted. Subtle increased attenuation is again associated with the basilar artery and the M1 segments of the middle cerebral arteries. Findings may be related to the underlying atherosclerotic disease and dorsal concentration. Underlying hyperdense thrombus cannot be excluded. No evidence of acute intracranial hemorrhage, mass effect, cerebral edema, midline shift, hydrocephalus or abnormal extra-axial fluid collection. Although there are no definitive findings to suggest evolving ischemia, CT is not sensitive for the detection of early or small infarcts. The orbits are unremarkable. The visualized paranasal sinuses, tympanic cavities and mastoid air cells are well pneumatized. No evidence of an acute skull fracture. IMPRESSION: No evidence of acute intracranial hemorrhage, mass effect or cerebral edema. Mild increased attenuation basilar and middle cerebral arteries as detailed. Involutional and chronic microvascular changes. Note: If there is persistent clinical concern for early evolving ischemia, consider MRI or CTA for further evaluation. Signed: Braeden Villasenor Verified Date/Time: 07/16/2017 01:45:18 Reading Location: [address] Reading Room GLOBIN [id number] 11:22:00* Test Item Value Reference Range Comments HEMOGLOBIN A1C (BEAKER) (test pqld=443) 6.1 % 4.3-6.1 VITAMIN B12 AND [id number] 10:36:00* Test Item Value Reference Range Comments VITAMIN B12 (BEAKER) (test gdqo=853) 389 pg/mL 213-816 FOLATE (BEAKER) (test oswg=825) 7.4 ng/mL >=7.0 LIPID [id number] 10:08:00* Test Item Value Reference Range Comments TRIGLYCERIDES (BEAKER) (test hewy=657) 157 mg/dL Specimen slightly hemolyzed CHOLESTEROL (BEAKER) (test buvw=547) 170 mg/dL Specimen slightly hemolyzed HDL CHOLESTEROL (BEAKER) (test muro=948) 46 mg/dL LDL CHOLESTEROL CALCULATED (BEAKER) (test pdam=806) 93 mg/dL Triglyceride Reference Range: Low Risk <150 Borderline 150-199 High Risk 200-499 Very High Risk >=500Cholesterol Reference Range: Low Risk <200 Borderline 200-239 High Risk >240HDL Cholesterol Reference Range: Low Risk >=60 High Risk <40LDL Cholesterol Reference Range: Optimal <100 Near Optimal 100-129 Borderline 130-159 High 160-189 Very High >=190 COMPREHENSIVE METABOLIC [id number] 05:36:00* Test Item Value Reference Range Comments TOTAL PROTEIN (BEAKER) (test tbwj=502) 6.3 gm/dL 6.0-8.3 ALBUMIN (BEAKER) (test taqg=7276) 3.3 g/dL 3.5-5.0 ALKALINE PHOSPHATASE (BEAKER) (test rcdb=302) 81 U/L 40-150 BILIRUBIN TOTAL (BEAKER) (test onys=272) 0.7 mg/dL 0.2-1.2 SODIUM (BEAKER) (test aykk=029) 145 meq/L 136-145 POTASSIUM (BEAKER) (test rzzm=344) 3.5 meq/L 3.5-5.1 CHLORIDE (BEAKER) (test nfge=950) 111 meq/L 98-107 CO2 (BEAKER) (test frax=025) 26 meq/L 22-29 BLOOD UREA NITROGEN (BEAKER) (test ydnl=137) 16 mg/dL 7-21 CREATININE (BEAKER) (test myxu=461) 1.41 mg/dL 0.57-1.25 GLUCOSE RANDOM (BEAKER) (test cewg=955) 82 mg/dL 70-105 CALCIUM (BEAKER) (test ccqm=043) 7.9 mg/dL 8.4-10.2 AST (SGOT) (BEAKER) (test mzih=660) 25 U/L 5-34 ALT (SGPT) (BEAKER) (test cvtk=142) 36 U/L 6-55 EGFR (BEAKER) (test smtk=5308) 52 mL/min/1.73 sq m ESTIMATED GFR IS NOT ACCURATE CREATININE CLEARANCE IN PREDICTING GLOMERULAR FILTRATION RATE. ESTIMATED GFR IS NOT APPLICABLE FOR DIALYSIS PATIENTS. CREATINE KINASE (CK), TOTAL AND [id number] 05:35:00* Test Item Value Reference Range Comments CREATINE KINASE TOTAL (BEAKER) (test cmsy=685) 75 U/L 29-200 CREATINE KINASE-MB (BEAKER) (test uhtc=341) 1.7 ng/mL 0.0-6.6 CREATINE KINASE-MB INDEX (BEAKER) (test azgp=477) 2.3 % CK-MB Reference Range:<6.7 Normal6.7-10.0 Borderline>10.0 Abnormal TROPONIN [id number] 05:23:00* Test Item Value Reference Range Comments TROPONIN I (BEAKER) (test epzb=304) 0.04 ng/mL 0.00-0.03 Troponin I (TnI) levels must be interpreted in the context of the presenting sym ptoms and the clinical findings. Elevated TnI levels indicate myocardial damage, but are not specific for ischemic heart disease. Elevated TnI levels are seen in patients with other cardiac conditions (including myocarditis and congestive h eart failure), and slight TnI elevations occur in patients with other conditions , including sepsis, renal failure, acidosis, acute neurological disease, and per sistent tachyarrhythmia.CBC W/PLT COUNT & AUTO [id number] 02:00:00* Test Item Value Reference Range Comments WHITE BLOOD CELL COUNT (BEAKER) (test kuvl=658) 6.0 K/ L 3.5-10.5 RED BLOOD CELL COUNT (BEAKER) (test fgiu=267) 5.54 M/ L 4.63-6.08 HEMOGLOBIN (BEAKER) (test yrkf=536) 16.9 GM/DL 13.7-17.5 HEMATOCRIT (BEAKER) (test zftf=730) 51.1 % 40.1-51.0 MEAN CORPUSCULAR VOLUME (BEAKER) (test qfmg=802) 92.2 fL 79.0-92.2 MEAN CORPUSCULAR HEMOGLOBIN (BEAKER) (test cxgg=027) 30.5 pg 25.7-32.2 MEAN CORPUSCULAR HEMOGLOBIN CONC (BEAKER) (test fipy=135) 33.1 GM/DL 32.3-36.5 RED CELL DISTRIBUTION WIDTH (BEAKER) (test xgng=286) 14.8 % 11.6-14.4 PLATELET COUNT (BEAKER) (test gtmz=205) 246 K/CU MM 150-450 MEAN PLATELET VOLUME (BEAKER) (test idyx=163) 10.6 fL 9.4-12.4 NUCLEATED RED BLOOD CELLS (BEAKER) (test wfxu=035) 0 /100 WBC 0-0 NEUTROPHILS RELATIVE PERCENT (BEAKER) (test yclg=146) 49 % LYMPHOCYTES RELATIVE PERCENT (BEAKER) (test xlmz=089) 36 % MONOCYTES RELATIVE PERCENT (BEAKER) (test ojrk=556) 10 % EOSINOPHILS RELATIVE PERCENT (BEAKER) (test qjqp=342) 3 % BASOPHILS RELATIVE PERCENT (BEAKER) (test sizi=435) 1 % NEUTROPHILS ABSOLUTE COUNT (BEAKER) (test iphq=568) 2.94 K/ L 1.78-5.38 LYMPHOCYTES ABSOLUTE COUNT (BEAKER) (test xoai=893) 2.15 K/ L 1.32-3.57 MONOCYTES ABSOLUTE COUNT (BEAKER) (test vtjd=803) 0.62 K/ L 0.30-0.82 EOSINOPHILS ABSOLUTE COUNT (BEAKER) (test vnrv=427) 0.19 K/ L 0.04-0.54 BASOPHILS ABSOLUTE COUNT (BEAKER) (test jdxk=109) 0.07 K/ L 0.01-0.08 IMMATURE GRANULOCYTES-RELATIVE PERCENT (BEAKER) (test cilu=5866) 1 % 0-1 RAD, CHEST, 2 [id number] 01:36:00Reason for exam:->CHEST PAINReason for exam:->LOSS OF CONSCIOUSNESSFINAL REPORT EXAM: 2 VIEW CHEST CLINICAL INDICATION: Chest pain, loss of consciousness IMPRESSION: Compared with [facility] chest radiograph 07/28/2015 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 The heart is enlarged but grossly stable. Mediastinal contours are also relatively unchanged. No definite evidence of a discrete pneumonia, pulmonary edema, pleural effusion, pneumothorax or acute osseous abnormality. Chest CT could be performed for further evaluation if an occult process is suspected. Signed: Braeden Villasenor MDReport Verified Date/Time: 07/15/2017 01:36:25 Reading Location: [address] Reading Room /[id number] 01:26:00* Test Item Value Reference Range Comments PROTIME (BEAKER) (test uace=504) 13.3 seconds 11.7-14.7 INR (BEAKER) (test gsvw=965) 1.0 <=5.9 PARTIAL THROMBOPLASTIN TIME (BEAKER) (test nclv=108) 35.7 seconds 22.5-36.0 RECOMMENDED COUMADIN/WARFARIN INR THERAPY RANGESSTANDARD DOSE: 2.0 - 3.0 Inclu alfredo: PROPHYLAXIS for venous thrombosis, systemic embolization; TREATMENT for alverto ous thrombosis and/or pulmonary embolus.HIGH RISK: Target INR is 2.5-3.5 for pat ients with mechanical heart valves.B-TYPE NATRIURETIC FACTOR (BNP)2017-07-15 01:25:00* Test Item Value Reference Range Comments B-TYPE NATRIURETIC PEPTIDE (GUY) (test ttdi=238) 753 pg/mL 0-100 CT, BRAIN, WITHOUT [id number] 01:25:00Reason for exam:->CHEST PAINReason for exam:->LOSS OF CONSCIOUSNESSWhat is the patient's sedation requirement?->No SedationFINAL REPORT Clinical history : SyncopeComparison study: None Technique: Contiguous axial images were obtained of the brain without intravenous contrast. This exam was performed according to our departmental dose optimization program, which includes automated exposure control, adjustment of the mA and/or kV according to the patient's size and/or use of the iterative reconstruction technique. FINDINGS: No hydrocephalus, mass, midline shift, cisternal effacement, intraparenchymal hemorrhage, or extra axial fluid collection. No acute infarction is identified. Atherosclerotic calcifications of the intracranial circulation. Mild supratentorial microvascular white matter changes. The visualized paranasal sinuses and tympanomastoid cavities are well pneumatized. Normal orbital contents, skull base, and calvarium. Impression: No acute abnormalities. Signed: Eduard Reza Verified Date/Time: 07/15/2017 01:25:58 Reading Location: [address] Ortho Consult Reading Room
--- OUTSIDE RECORDS SUMMARY | 2018-10-22 11:57 | XMS REPORT | Summary of Care ---
Author Author [facility] Organization [facility] Address Unknown Phone Unavailable Encounter DENNIS Cisneros(CHRIS) [id number] Date(s): 09/07/17 - 09/07/17 [facility] [address], [address] [place], [place] [address] Attending Physician: Israel Bazzi MD Referring Physician: Israel Baziz MD Vital Signs No data available for this section Problem List Condition Effective Dates Status Health Status Informant Coronary artery Active disease(Confirmed) Chronic renal Active insufficiency(Confir med) Chronic systolic Active heart failure(Confirmed) Diverticulosis(Confi Resolved rmed) 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
--- OUTSIDE RECORDS SUMMARY | 2018-10-22 11:57 | XMS REPORT | Summary of Care ---
Author Author [facility] Organization [facility] Address Unknown Phone Unavailable Encounter DENNIS Cisneros(CHRIS) [id number] Date(s): 03/09/17 - 03/09/17 [facility] [address], [address] [place] [address]- Discharge Disposition: Home or Self Care Attending Physician: Israel Bazzi MD Referring Physician: Israel Bazzi MD Vital Signs Most recent to 1 oldest [Reference Range]: Height 162.56 cm (03/09/17 9:47 AM) Temperature Oral 97.6 DegF [96.4-99.1 DegF] (03/09/17 9:47 AM) Blood Pressure 170/110 mmHg [90-140/60-90 mmHg] *HI* (03/09/17 9:47 AM) Respiratory Rate 18 BRMIN [14-20 BRMIN] (03/09/17 9:47 AM) Peripheral Pulse 70 bpm Rate [60-100 bpm] (03/09/17 9:47 AM) Weight 89.091 kg (03/09/17 9:47 AM) Body Mass Index 33.71 m2 (03/09/17 9:47 AM) Problem List Condition Effective Dates Status Health Status Informant Coronary artery Active disease(Confirmed) Chronic renal Active insufficiency(Confir med) Chronic systolic Active heart failure(Confirmed) Diverticulosis(Confi Resolved rmed) Old [place] (myocardial Resolved infarction)(Confirme d) Hypertension(Confirm Active ed) Ischemic Active cardiomyopathy(Confi rmed) Hernia, Active umbilical(Confirmed) Allergies, Adverse Reactions, Alerts Substance Reaction Severity Status atenolol Active Medications acetaminophen-hydrocodone 325 mg-10 mg oral tablet 1 tab, PO, Q4H, PRN Pain, # 30 tab, 0 Refill(s) Start Date: 03/09/17 Stop Date: 03/14/17 Status: Ordered ALPRAZOLam 2 mg oral tablet 2 mg=1 tab, PO, TID, PRN Anxiety, 0 Refill(s) Start Date: 03/09/17 Stop Date: 03/23/17 Status: Ordered amLODIPine 10 mg oral tablet 10 mg=1 tab, PO, Daily, # 90 tab, 0 Refill(s) Start Date: 03/09/17 Status: Ordered azithromycin 500 mg oral tablet 500 mg=1 tab, PO, Daily, # 5 tab, 0 Refill(s) Start Date: 03/09/17 Stop Date: 03/14/17 Status: Ordered carisoprodol 350 mg oral tablet 350 mg=1 tab, PO, BID, # 30 tab, 0 Refill(s) Start Date: 03/09/17 Stop Date: 03/19/17 Status: Ordered carvedilol 25 mg oral tablet 25 mg=1 tab, PO, BID, # 180 tab, 0 Refill(s) Start Date: 03/09/17 Status: Ordered cloNIDine 0.1 mg oral tablet 0.1 mg=1 tab, PO, Daily, # 90 tab, 3 Refill(s) Start Date: 03/09/17 Status: Ordered digoxin 250 mcg (0.25 mg) oral tablet 0.25 mg, PO, Daily, # 30 tab, 0 Refill(s) Start Date: 03/09/17 Status: Ordered DOK 100 mg oral tablet 100 mg=1 tab, PO, Daily, 0 Refill(s) Start Date: 03/09/17 Status: Ordered furosemide 40 mg oral tablet 40 mg=1 tab, PO, BID, # 30 tab, 0 Refill(s) Start Date: 03/09/17 Status: Ordered isosorbide mononitrate 60 mg oral tablet, extended release 60 mg=1 tab, PO, QAM, # 30 tab, 0 Refill(s) Start Date: 03/09/17 Status: Ordered lisinopril 20 mg oral tablet 20 mg=1 tab, PO, Daily, # 30 tab, 0 Refill(s) Start Date: 03/09/17 Status: Ordered losartan 100 mg oral tablet 100 mg=1 tab, PO, Daily, # 30 tab, 0 Refill(s) Start Date: 03/09/17 Status: Ordered potassium chloride 20 mEq oral tablet, extended release 20 mEq=1 tab, PO, Daily, # 30 tab, 3 Refill(s) Start Date: 03/09/17 Status: Ordered ranitidine 150 mg oral capsule 150 mg=1 cap, PO, Daily, # 180 cap, 0 Refill(s) Start Date: 03/09/17 Status: Ordered spironolactone 50 mg oral tablet 50 mg=1 tab, PO, Daily, # 90 tab, 1 Refill(s) Start Date: 03/09/17 Stop Date: 06/07/17 Status: Ordered Results No data available for this section [...]
[2018-10-22] MEDS ORDERED: SODIUM CHLORIDE 0.9% 1000ML 1,000 ML IV STA (12:08)
[2018-10-22] MEDS ORDERED: HYDROMORPHONE 1MG/1ML INJ IV STA (12:15)
[2018-10-22 12:24] LABS: BASOPHILS # (AUTO) 0.1 (0.0-0.1); BASOPHILS % 0.8 % (0.0-1.0); EOSINOPHILS % 0.5 % (0.0-6.0); HEMATOCRIT 37.8 % (38.2-49.6); HEMOGLOBIN 11.1 g/dL (14.0-18.0); LYMPHOCYTES # (AUTO) 1.1 (1.0-3.2); LYMPHOCYTES % 13.7 % (18.0-39.1); MEAN CORPUSCULAR HEMOGLOBIN 23.4 pg (28-32); MEAN CORPUSCULAR HGB CONC 29.4 g/dL (31-35); MEAN CORPUSCULAR VOLUME 79.7 fL (81-99); MONOCYTES # (AUTO) 0.9 (0.2-0.8); MONOCYTES % 11.3 % (4.4-11.3); NEUTROPHILS # (AUTO) 5.6 (2.1-6.9); NEUTROPHILS % 73.2 % (38.7-80.0); PLATELET COUNT 236 x10e3/uL (140-360); RED BLOOD COUNT 4.74 x10e6/uL (4.3-5.7); RED CELL DISTRIBUTION WIDTH 17.3 % (11.7-14.4)
[2018-10-22 12:28] LABS: BILIRUBIN,URINE 2+ (NEGATIVE); CLARITY,URINE CLEAR (CLEAR); COLOR,URINE AMBER (YELLOW); KETONES,URINE NEGATIVE (NEGATIVE); LEUKOCYTE ESTERASE ,URINE NEGATIVE (NEGATIVE); NITRITE,URINE NEGATIVE (NEGATIVE); PROTEIN,URINE DIPSTICK 2+ (NEGATIVE); URINE UROBILINOGEN 0.2 mg/dL (0.2 - 1)
[2018-10-22] MEDS ORDERED: HYDROMORPHONE 2MG/ML 2 MG/ML ML IV ONE (12:30)
[2018-10-22 12:39] LABS: EPITHELIAL CELLS,URINE RARE /LPF; INR 1.23; PROTHROMBIN TIME 16.1 seconds (11.9-14.5)
[2018-10-22 12:40] LABS: PARTIAL THROMBOPLASTIN TIME 36.2 seconds (23.8-35.5)
[2018-10-22] MEDS ORDERED: DIATRIZOATE MEGL/DIATRIZOA SOD 30 ML BTL PO ONE (12:47)
[2018-10-22 12:49] LABS: ALBUMIN 3.9 g/dL (3.5-5.0); ALBUMIN/GLOBULIN RATIO 1.1 (0.8-2.0); ANION GAP 14.2 mmol/L (8-16); CALCIUM 8.5 mg/dL (8.4-10.2); CREATININE, SERUM 1.62 mg/dL (0.72-1.25); POTASSIUM 3.2 mmol/L (3.5-5.1)
[2018-10-22 12:56] LABS: CREATINE KINASE MB 0.9 ng/mL (0-5.0)
[2018-10-22] MEDS ORDERED: ACYCLOVIR200 MG PO (12:57)
[2018-10-22] MEDS ORDERED: CLOPIDOGREL75 MG PO (12:57)
[2018-10-22] MEDS ORDERED: POLYETHYLENE GL17 GM PO (12:57)
[2018-10-22] MEDS ORDERED: FENOFIBRATE145 MG PO (12:57)
[2018-10-22] MEDS ORDERED: CLONIDINE HCL0.2 MG PO (12:57)
[2018-10-22] MEDS ORDERED: SPIRONOLACTONE25 MG PO (12:57)
[2018-10-22] MEDS ORDERED: FLUOXETINE HCL20 MG PO (12:57)
[2018-10-22] MEDS ORDERED: POTASSIUM CHLO10 ME1 PO (12:57)
[2018-10-22] MEDS ORDERED: HYDRALAZINE HCL10 MG PO (12:57)
[2018-10-22] MEDS ORDERED: RANITIDINE HCL75 MG PO (12:57)
[2018-10-22] MEDS ORDERED: AMLODIPINE BESY10 MG PO (12:57)
[2018-10-22] MEDS ORDERED: movantik PO (12:57)
[2018-10-22] MEDS ORDERED: LABETALOL HCL 20 MG/4 ML SYRINGE IV NR (13:00)
[2018-10-22 13:11] LABS: PHENCYCLIDINE SCREEN,URINE NEGATIVE (NEGATIVE)
[2018-10-22 13:12] LABS: AMPHETAMINES SCREEN,URINE NEGATIVE (NEGATIVE); BENZODIAZEPINES SCREEN,URINE POSITIVE (NEGATIVE)
--- NOTE | 2018-10-22 13:23 | Diagnostic Imaging Report ---
EXAM: CHEST 2 VIEWS, PA and lateral DATE: 10/22/2018 Time stamp on exam: 12:18 PM INDICATION: Abdominal pain COMPARISON: 12/15/2012 FINDINGS: LINES/TUBES: Triple lead left-sided cardiac device present. There are sternotomy wire sutures. LUNGS: Mild pulmonary vascular congestion. PLEURA: No effusions or pneumothorax. HEART AND MEDIASTINUM: The heart is enlarged. BONES AND SOFT TISSUES: No acute findings. Mild degenerative changes of the spine. IMPRESSION: Cardiomegaly with mild pulmonary vascular congestion. Signed by: Dr. Jose Luis Almazan DO on 10/22/2018 1:20 PM
[2018-10-22] MEDS ORDERED: ONDANSETRON HCL INJ 2MG/ML 2ML 2 MG/ML VIAL IV STA (13:24)
[2018-10-22] MEDS ORDERED: SODIUM CHLORIDE 0.9% 50ML 50 ML ONE (13:27)
[2018-10-22] MEDS ORDERED: IOPAMIDOL 370 MG/ML 200 ML INFUS..BTL INJ ONE (13:27)
[2018-10-22] MEDS: HYDRALAZINE HCL 20 MG/ML VIAL IV PRN (14:04)
[2018-10-22] MEDS ORDERED: HYDRALAZINE HCL 20 MG/ML VIAL IV ONE ×2 (14:15→18:15)
[2018-10-22] MEDS ORDERED: FUROSEMIDE INJ 10 MG/ML 4 ML VIAL IV ONE (14:30)
--- NOTE | 2018-10-22 15:06 | NUR ---
Walking rounds completed with Alex MEDRANO, pt is in no acute distress at this time.
--- NOTE | 2018-10-22 15:09 | NUR ---
Walking rounds with MARCELA Guzman.
--- NOTE | 2018-10-22 15:33 | Diagnostic Imaging Report ---
EXAM: CT Abdomen and Pelvis WITH contrast INDICATION: Abdominal pain, distention COMPARISON: CT abdomen/pelvis, 08/20/2012 TECHNIQUE: Abdomen and pelvis were scanned utilizing a multidetector helical scanner from the lung base to the pubic symphysis after administration of IV contrast. Coronal and sagittal reformations were obtained. Routine protocol was performed. Scan was performed when during portal venous phase. Dose modulation, iterative reconstruction, and/or weight based adjustment of the mA/kV was utilized to reduce the radiation dose to as low as reasonably achievable. IV CONTRAST: 100 mL of Isovue-370 ORAL CONTRAST: 25 cc Gastrografin RADIATION DOSE: Total DLP: 640.34 mGy*cm Estimated effective dose: (DLP x 0.015 x size factor) mSv COMPLICATIONS: None FINDINGS: LINES and TUBES: Intracardiac leads are noted. LOWER THORAX: Right lung base is clear. There is a small left pleural effusion with mild underlying left lower lobe atelectasis. There is marked cardiomegaly. HEPATOBILIARY: Diffuse low density of hepatic parenchyma compatible with steatosis. No focal hepatic lesions. No biliary ductal dilation. GALLBLADDER: No radio-opaque stones or sludge. Gallbladder wall thickening may be related to edema. SPLEEN: No splenomegaly. PANCREAS: No focal masses or ductal dilatation. ADRENALS: No adrenal nodules KIDNEYS/URETERS: Kidneys enhance symmetrically. There is poor renal enhancement, likely related to bolus timing. No hydronephrosis. No cystic or solid mass lesions. No stones. GI TRACT: No abnormal distention, wall thickening, or evidence of bowel obstruction. Sigmoid diverticulosis with no CT evidence for acute diverticulitis. Appendix is normal. PELVIC ORGANS/BLADDER: Urinary bladder is decompressed. The wall appears thickened, likely accentuated by lack of distention. Prostate calcifications are seen. LYMPH NODES: No lymphadenopathy. VESSELS: Abdominal aorta is atherosclerotic with calcified plaques. No aneurysm or dissection. IVC unremarkable. There is extensive downward reflux of contrast from the right atrium into the IVC and hepatic veins. The portal system is not opacified, likely related to bolus timing. PERITONEUM / RETROPERITONEUM: No pneumoperitoneum. There is a small volume of ascites collected mainly in the paracolic gutters and pelvis. There is diffuse edema in the mesentery. BONES: No acute or suspicious bony lesions. Wire sternotomy sutures are present. SOFT TISSUES: Superficial surrounding soft tissue unremarkable. IMPRESSION: 1. Cardiomegaly and left pleural effusion. Reflux of contrast into the IVC and hepatic veins, and mesenteric edema, likely reflective of congestive heart failure. 2. Small volume of diffuse ascites in the abdomen and pelvis, likely also related to congestive failure. 3. Gallbladder wall thickening with no opaque calculi. This may be due to generalized edema although gallbladder pathology is not excluded. If clinically suspected, gallbladder ultrasound may be helpful for further characterization. Staff: Karla Signed by: Dr. Bay Acosta M.D. on 10/22/2018 3:29 PM
--- NOTE | 2018-10-22 15:35 | Diagnostic Imaging Report ---
EXAM: ABDOMEN-1VIEW (KUB) DATE: 10/22/2018 12:08 PM INDICATION: Digestive problems, abdominal pain COMPARISON: None FINDINGS: 2 upright views of the abdomen were obtained. Fluid levels are seen, likely in the stomach and colon. No specific evidence for bowel obstruction. No pneumoperitoneum. Intracardiac leads are noted. IMPRESSION: Fluid levels in the colon and stomach may reflect ileus. No specific evidence for bowel obstruction. No pneumoperitoneum. Signed by: Dr. Bay Acosta M.D. on 10/22/2018 3:32 PM
[2018-10-22] MEDS ORDERED: ASPIRIN 81 MG CHEW TAB PO ONE (16:15)
[2018-10-22] MEDS ORDERED: SODIUM CHLORIDE FLUSH 10 ML SYR INJ PRN (16:15)
[2018-10-22] MEDS ORDERED: MORPHINE SULFATE 2 MG/ML SYR 1ML IV PRN (16:15)
[2018-10-22] MEDS ORDERED: ONDANSETRON HCL INJ 2MG/ML 2ML 2 MG/ML VIAL IV PRN (16:15)
[2018-10-22] MEDS ORDERED: MORPHINE SULFATE INJ 4 MG/ML INJ 1ML IV PRN (16:30)
[2018-10-22] MEDS ORDERED: CLONIDINE HCL 0.2 MG TAB PO ONE (16:30)
--- OUTSIDE RECORDS SUMMARY | 2018-10-22 16:38 | XMS REPORT | Clinical Summary ---
Author Author [facility] Organization [facility] Address Unknown Phone Unavailable Care Team Providers Care Air Brakes Inspector Name Role Phone PCP Unavailable Allergies Comments [...] Problem Noted Date Coronary artery disease involving [place] coronary artery of [place] heart 01/02/2018 with angina pectoris Cardiomyopathy 01/02/2018 Precordial chest pain Right upper quadrant abdominal pain Unstable angina Anxiety Essential hypertension Encounters Care Team Description Date Type Specialty Luigi Quintana 01/05/2018 Orders Only Cardiology Jus Christianson MD Medrano, Vanessa N, Physician Precordial chest pain (Primary Dx); Right upper quadrant abdominal pain; Unstable angina; Coronary artery disease involving [place] coronary artery of [place] heart with angina pectoris 01/02/2018 Emergency - [...] :1960 Exam Date: 01/05/2018 08:42 Exam Location: [facility] Echo Ordering Phys: MARKOS BOND ([facility]chd/medrav) Referring Phys:[id number], SLIME Reading Phys:Win Blanco MD Fellow Phys: Fellow Phys: Lye Bath Operator: Luigi Quintana Reason For Exam: Indications: Cardiomyopathy ICD-9 Codes: I42.3 Exam Type: TRANSTHORACIC ECHO (TTE) Procedure CPT:66580 Addtional CPT: Ht (in): 64 BSA: 1.97HR: [...] E' Lateral Ratio 35 FINDINGS Left Ventricle [place] is foreshortened. Severe left ventricular dilatation. Left [...] is now more reduced as well. 1. [place] is foreshortened. Severe left ventricular dilatation. Left [...] 3. Biatrial dilation. 4. Mild MR and [place]. 5. Trace pericardial effusion. Win Blanco MD [...] E' Lateral Ratio 35 Performing Organization Address City/[facility] Phone Number SMS * MAGNESIUM (01/05/2018 1:30 AM CDT) Only the most recent of 5 results within the time period is included. Magnesium 2.1 1.9 - 2.7 mg/dL BT MAIN-STATION 1 Performing Organization Address City/[facility] Phone Number MISYS BT MAIN-STATION 1 * [...] results within the time period is included. [facility] Signature CO2 27 21 - 31 mmol/L [...] BT MAIN-STATION Afr-Am 1 Performing Organization Address [facility] Phone Number MISYS BT MAIN-STATION 1 * HEMOGLOBIN A1C (01/04/2018 4:45 AM CDT) Hemoglobin A1c 5.7 4.3 - 6.1 % BT DIAGNOSTIC IMMUNOLOGY Est Average 116.9 mg/dL BT DIAGNOSTIC Gluc IMMUNOLOGY Specimen Blood Performing Organization Address [facility] Phone Number MISYS BT DIAGNOSTIC IMMUNOLOGY * TSH (01/04/2018 4:45 AM CDT) TSH 1.36 0.57 - 3.74 uIU/mL BT MAIN-STATION 1 Specimen Blood Performing Organization Address [facility] Phone Number MISYS BT MAIN-STATION 1 * LIPID PROFILE (01/04/2018 4:45 AM CDT) Cholesterol 133 mg/dL BT MAIN-STATION Comment: 1 REFERENCE RANGE: Desirable: <200 mg/dL Borderline: 200-240 mg/dL High Risk: >240 mg/dL Triglyceride 149 <150 mg/dL BT MAIN-STATION Comment: 1 REFERENCE RANGE: Normal: <150 mg/dL Borderline High: 150-199 mg/dL High: 200-499 mg/dL Very High: >dx=893 mg/dL HDL 47 mg/dL BT MAIN-STATION Comment: 1 Increased CHD risk: <40 mg/dL Decreased CHD risk: >60 mg/dL LDL 56 mg/dL BT MAIN-STATION Comment: 1 REFERENCE RANGE: Optimal: <100 mg/dL Near Optimal: 100-129 mg/dL Borderline High: 130-159 mg/dL High: 160-189 mg/dL Very High: >bt=223 mg/dL Specimen Blood Performing Organization Address [facility] Cent[facility] Phone Number MISYS BT MAIN-STATION 1 * 12 LEAD EKG (01/04/2018 3:24 AM CDT) 12 LEAD EKG FOR [facility] Test Date:2018-01-04 Pat Name: MARYA MILLAN Department: Room: Gender: Image Editor: [id number] :1960-1 08-30 Requested By: Order Number: Marcos sharma MD: Lilliam Burch M.D. Measurements Intervals [place] Rate: 68 P:45 WY: 153 QRS: 255 QRSD: 162 T: 75 QT: 466 QTc:499 Interpretive Statements ELECTRONIC VENTRICULAR PACEMAKER ABNORMAL RHYTHM ECG Electronically Signed On 01-04-18 06:16:53 CDT by Lilliam Burch M.D. Performing Organization Address [facility] Phone Number SMS * URINE DRUG SCREEN (01/03/2018 11:20 AM CDT) Amphetamine Negative NEG BT MAIN-STATION Comment: 1 Calibrated Standard: D-Methamphetamine Positive if urine level >bq=5815 ng/mL Test performed on [id number] using EMIT Immunoassay Barbiturate Negative NEG BT MAIN-STATION Comment: 1 Calibrated Standard: Secobarbital Positive if urine level is >xv=513 ng/mL Test performed on [id number] using EMIT Immunoassay Benzodiazepine Positive (A) NEG BT MAIN-STATION Comment: 1 Calibrated Standard: Lormethazepam Positive if urine level is >so=218 ng/mL Test performed on [id number] using EMIT Immunoassay Cannabinoid Negative NEG BT MAIN-STATION Comment: 1 Calibrated Standard: 11 nor-delta(9)-THC carboxylic a Positive if urine level >or=50 Test performed on [id number] using EMIT Immunoassay Cocaine Negative NEG BT MAIN-STATION Comment: 1 Calibrated Standard: Benzoylecgonine Positive if urine level >ok=016 Test performed on [id number] using EMIT Immunoassay Opiate, Ur Positive (A) NEG BT MAIN-STATION Comment: 1 Calibrated Standard: Morphine Positive if urine level >tf=677 Test performed on [id number] using EMIT Immunoassay PCP Negative NEG BT MAIN-STATION Comment: 1 Calibrated Standard: Phencyclidine Positive if urine level >or=25 Test performed on [id number] using EMIT Immunoassay Urine Toxicology Screen results are to be used only for Medical purposes. Specimen Urine Performing Organization Address City/[facility] Cent[facility] Phone Number MISYS BT MAIN-STATION 1 * TROPONIN I (01/03/2018 8:32 AM CDT) Only the most recent of 3 results within the time period is included. Troponin I 0.06 (H) <0.04 ng/mL BT MAIN-STATION 1 Specimen Blood Performing Organization Address [facility] Phone Number MISYS BT MAIN-STATION 1 * 12 LEAD EKG (01/03/2018 8:29 AM CDT) 12 LEAD EKG FOR [facility] Test Date:2018-01-03 Pat Name: MARYA MILLAN Department: Room: Gender: Image Editor: LILLIEJUAN [id number] :1959-08 Requested By: Order Number: Marcos sharma MD: Lilliam Burch M.D. Measurements Intervals [place] Rate: 66 P:48 WY: 156 QRS: 249 QRSD: 160 T: 71 QT: 491 QTc:515 Interpretive Statements ELECTRONIC VENTRICULAR PACEMAKER ABNORMAL RHYTHM ECG Electronically Signed On 01-03-18 12:06:36 CDT by Lilliam Burch M.D. Performing Organization Address [facility] Phone Number SMS * 12 LEAD EKG (01/02/2018 8:45 PM CDT) 12 LEAD EKG FOR [facility] Test Date:2018-01-02 Pat Name: MARYA MILLAN Department: Room: Gender: M Image Editor: [id number] :1959-08 Requested By: Order Number: Marcos sharma MD: jose jimenez Measurements Intervals [place] Rate: 77 P:66 WY: 156 QRS: -65 QRSD: 149 T: 69 QT: 449 QTc:511 Interpretive Statements ELECTRONIC VENTRICULAR PACEMAKER ABNORMAL RHYTHM ECG Electronically Signed On 01-05-18 16:21:40 CDT by jose jimenez Performing Organization Address [facility] Cent[facility] Phone Number [facility] * TROPONIN I POC (01/02/2018 [...] 3 Clarity Clear BT MAIN-STATION 3 Spec [place] 1.015 1.001 - 1.035 BT MAIN-STATION 3 [...] MAIN-STATION 3 Specimen Urine Performing Organization Address City/State/[facility] Phone Number MISYS BT MAIN-STATION 3 * [...] MD, 01/02/2018 9:41 PM Performing Organization Address City/State/[facility] Cent[facility] Phone Number SMS * 12 LEAD EKG (01/02/2018 5:16 PM CDT) 12 LEAD EKG FOR [facility] Test Date:2018-01-02 Pat Name: MARYA MILLAN Department: Room: Gender: M Image Editor: [id number] :1960-1 08-30 Requested By: Order Number: Marcos sharma MD: Markos Bond Measurements Intervals [place] Rate: 70 P:49 WY: 196 QRS: 6 QRSD: 133 T: -87 QT: 467 QTc:505 Interpretive Statements SINUS RHYTHM POSSIBLE LEFT ATRIAL ENLARGEMENT INTRAVENTRICULAR CONDUCTION DELAY LATERAL MYOCARDIAL INFARCTION, OF INDETERMINATE AGE Electronically Signed On 01-02-18 18:08:23 CDT by Markos Bond Performing Organization Address City/[facility] Phone Number [facility] * POCT BNP (BRAIN NATRIURETIC PEPTIDE) (01/02/2018 5:13 PM CDT) B Natr Pept POC 590 (H) 0 - 100 pg/mL BT MAIN-STATION 1 Performing Organization Address City/[facility] Phone Number MISYS BT MAIN-STATION 1 * [...] BT MAIN-STATION Afr-Am 1 Performing Organization Address City/[facility] Phone Number MISYS BT MAIN-STATION 1 * [...] MAIN-STATION 1 Specimen Blood Performing Organization Address City/[facility] Phone Number MISYS BT MAIN-STATION 1 * LIPASE (01/02/2018 4:45 PM CDT) Lipase 56 11 - 82 U/L BT MAIN-STATION 1 Specimen Blood Performing Organization Address City/[facility] Phone Number MISYS BT MAIN-STATION 1 * DIGOXIN (01/02/2018 4:45 PM CDT) Digoxin <0.3 (L) 0.80 - 2.00 ng/mL BT MAIN-STATION 3 Performing Organization Address City/[facility] Phone Number MISYS BT MAIN-STATION 3 * 12 LEAD EKG (01/02/2018 4:35 PM CDT) 12 LEAD EKG FOR [facility] Test Date:2018-01-02 Pat Name: MARYA MILLAN Department: Room: Gender: M Image Editor: [id number] :1960-1 08-30 Requested By: Order Number: Marcos sharma MD: Markos Bond Measurements Intervals [place] Rate: 80 P:70 WY: 202 QRS: 75 QRSD: 125 T: -81 QT: 428 QTc:496 Interpretive Statements SINUS RHYTHM POSSIBLE LEFT ATRIAL ENLARGEMENT LATERAL MYOCARDIAL INFARCTION, OF INDETERMINATE AGE MODERATE T-WAVE ABNORMALITY, CONSIDER INFERIOR ISCHEMIA Electronically Signed On 01-02-18 18:08:36 CDT by Markos Bond Performing Organization Address City/State/[facility] Phone Number [facility] after 10/21/2017 Insurance Type Payer Benefit Subscriber ID Effective Phone Address Plan / Dates Group [facility] xxxxxxxxx 2017-P [phone] [address] MEDICARE resent [id number] [place] [address] [facility] SELF-PAY [facility] PLAN xxxxxx 2018- [phone] [place] [address] Advance Directives For more information, please contact: [place] [id number] [place] [address] Date Inactivated Comments Code Status Date Activated 01/05/2018 2:47 PM Full Code 01/02/2018 10:57 PM
--- OUTSIDE RECORDS SUMMARY | 2018-10-22 16:38 | XMS REPORT | Clinical Summary ---
Author Author [facility] Address Unknown Phone Unavailable Care Team Providers Care Quality Assurance Tester Name Role Phone Santana Snell PCP Allergies [...] Manufactur er 06/04/2017 5076 - 45CM / [id number] / Sures[employer] Mr Conditional / 5076 - [employer] 45cm Implanted: Qty: 1 on 07/27/2015 05/10/2017 4298 - 78CM / [id number] / 4298 - 78cm [employer] Implanted: Qty: 1 on 07/27/2015 11/21/2016 [id number] / [id number] / Viva Quad Xt Transmission Worker-D / [id number] [employer] Implanted: Qty: 1 on 07/27/2015 Procedures Comments Procedure Name Priority Date/Time Associated Diagnosis ARRYTHMIA IMPLANT REPORT 04/28/2018 - SCAN 3:10 PM CDT after 10/21/2017 Results * ARRYTHMIA IMPLANT REPORT - SCAN (04/28/2018 3:10 PM CDT) Narrative Performed At after 10/21/2017 Insurance Payer Benefit Subscriber ID Type Phone Address Plan / Group TEXANPLUS TEXANPLUS xxxxxxxxx [facility] ALL Contracted Advance Directives For more information, please contact: [facility] [address] [place] [address] Date Inactivated Comments Code Status Date Activated 07/18/2017 1:53 PM Full Code 07/15/2017 7:49 AM This code status was determined by: Patient 07/29/2015 4:59 PM Full Code 07/20/2015 7:28 PM This code status was determined by: Patient
[2018-10-22 18:04] VITALS: BP 182/130
--- NOTE | 2018-10-22 19:00 | NUR ---
PATIENT IS A NEW ADMIT. PATIENT IS RESTING IN BED. BED IS IN LOWEST POSITION AND CALL VAN IS WITHIN REACH. WILL CONTINUE TO MONITOR PATIENT.
[2018-10-22 19:10] VITALS: BP 160/118
[2018-10-22] MEDS ORDERED: ALPRAZOLAM 3 MG PO SCH (19:45)
[2018-10-22 20:00] VITALS: BP 160/118
[2018-10-22] MEDS: CLONIDINE HCL 0.2 MG TAB PO SCH (20:15)
--- NOTE | 2018-10-22 20:17 | Diagnostic Imaging Report ---
EXAM: Right Upper Quadrant Ultrasound INDICATION: ^EDEMA COMPARISON: CT abdomen and pelvis 10/22/2018. TECHNIQUE: Transverse and longitudinal images of the right upper abdomen were obtained. FINDINGS: Liver: Size: 16.6 cm in the right midclavicular line, normal Appearance: Normal echogenicity, smooth contour Mass: No focal masses Gallbladder: Stones/Sludge: None Wall: 0.5 cm Appearance: No pericholecystic fluid or hydrops. Sonographic Iraheta's Sign: Negative Bile Ducts: Intrahepatic Ducts: No dilatation Extrahepatic Ducts: Common bile duct measures 0.4 cm, no dilatation Pancreas: Incompletely visualized due to overlying bowel gas, but no abnormality identified involving the visualized portions of the pancreas. Right Kidney: Size: 10.2 x 5.3 x 5.6 cm Echogenicity: Normal Parenchymal thickness: Normal Collecting system: No hydronephrosis Stones: 0.8 x 0.9 x 0.7 cm echogenic foci in the superior pole. However, there is no corresponding stone seen on recent CT. This is likely renal sinus fat. Cyst/Mass: None Vessels: Aorta: Visualized portions are normal Inferior Vena Cava: Visualized portions are normal Main Portal Vein: 1.3 cm, normal size with hepatopetal flow. Free Fluid: No ascites or pleural effusion IMPRESSION: Thickened gallbladder wall. No gallstones. No definite evidence of acute cholecystitis. Signed by: Dr. Orlin Richards M.D. on 10/22/2018 8:14 PM
[2018-10-22] MEDS: ACYCLOVIR 200 MG CAP PO SCH (21:15)
[2018-10-22] MEDS: ALPRAZOLAM 1 MG TAB PO SCH (21:15)
[2018-10-22 21:20] LABS: CREATINE KINASE MB 1.1 ng/mL (0-5.0)
[2018-10-23] VITALS (12 sets, daily range): BP systolic 102–186; BP diastolic 52–129
--- NOTE | 2018-10-23 | NUR ---
PATIENT'S BLOOD PRESSURE HAS BEEN RECHECKED AND FOUND TO BE 135/100. WILL CONTINUE TO MONITOR PATIENTS BLOOD PRESSURE.
[2018-10-23 05:32] LABS: BASOPHILS # (AUTO) 0.1 (0.0-0.1); EOSINOPHILS # (AUTO) 0.2 (0.0-0.4); EOSINOPHILS % 2.1 % (0.0-6.0); HEMATOCRIT 35.3 % (38.2-49.6); HEMOGLOBIN 10.6 g/dL (14.0-18.0); LYMPHOCYTES # (AUTO) 1.2 (1.0-3.2); LYMPHOCYTES % 16.7 % (18.0-39.1); MEAN CORPUSCULAR HEMOGLOBIN 24.1 pg (28-32); MEAN CORPUSCULAR VOLUME 80.4 fL (81-99); MONOCYTES % 13.6 % (4.4-11.3); NEUTROPHILS # (AUTO) 4.8 (2.1-6.9); NEUTROPHILS % 66.3 % (38.7-80.0); PLATELET COUNT 197 x10e3/uL (140-360); RED BLOOD COUNT 4.39 x10e6/uL (4.3-5.7); RED CELL DISTRIBUTION WIDTH 17.5 % (11.7-14.4)
[2018-10-23 05:47] LABS: ALBUMIN 3.5 g/dL (3.5-5.0); ALBUMIN/GLOBULIN RATIO 1.1 (0.8-2.0); CALCIUM 8.2 mg/dL (8.4-10.2); CREATININE, SERUM 2.05 mg/dL (0.72-1.25)
[2018-10-23 05:49] LABS: CREATINE KINASE MB 0.7 ng/mL (0-5.0)
--- NOTE | 2018-10-23 06:07 | Diagnostic Imaging Report ---
EXAM: CHEST SINGLE (PORTABLE), PA and lateral DATE: 10/23/2018 7:00 AM INDICATION: Shortness of breath. COMPARISON: 10/22/2018. FINDINGS: LINES/TUBES: Triple lead left-sided cardiac device present. There are sternotomy wire sutures. LUNGS: Mild pulmonary vascular congestion. PLEURA: Possible small left pleural effusion. No pneumothorax. HEART AND MEDIASTINUM: The heart is enlarged. BONES AND SOFT TISSUES: No acute findings. IMPRESSION: No significant interval change in the convexity CHF with bilateral pulmonary vascular congestion. Signed by: Dr. Lori Leon M.D. on 10/23/2018 6:03 AM
--- NOTE | 2018-10-23 06:34 | NUR ---
patient's blood pressure is 150/110. attending physician notified. received order for consult with it business systems analyst. Answering service of it business systems analyst notified awaiting call back from .
[2018-10-23] MEDS: HYDRALAZINE HCL 20 MG/ML VIAL IV PRN (06:41)
[2018-10-23] MEDS ORDERED: HYDRALAZINE HCL 20 MG/ML VIAL IV PRN (06:45)
--- NOTE | 2018-10-23 06:53 | NUR ---
CONSULTED MD RETURNED CALL, AND LEFT ORDERS FOR MEDICATION AND ECHOCARDIOGRAM.
--- NOTE | 2018-10-23 06:54 | NUR ---
REPORT GIVEN TO MORNING NURSE. PATIENT IS RESTING IN BED. BED IS IN LOWEST POSITION AND CALL LIGHT IS WITHIN REACH.
[2018-10-23] MEDS: SPIRONOLACTONE 25 MG TAB PO SCH (08:12)
[2018-10-23] MEDS: CLONIDINE HCL 0.2 MG TAB PO SCH ×3 (08:14→18:00)
[2018-10-23] MEDS: ASPIRIN 81 MG ENTERIC COATED PO SCH (08:14)
[2018-10-23] MEDS: CARVEDILOL 12.5 MG TAB PO SCH ×2 (08:15→18:40)
[2018-10-23] MEDS: FAMOTIDINE 20 MG TAB PO SCH (08:16)
[2018-10-23] MEDS: LISINOPRIL 20 MG TAB PO SCH ×2 (08:17→17:00)
[2018-10-23] MEDS: FENOFIBRATE 145 MG TAB PO SCH (08:17)
[2018-10-23] MEDS: ALPRAZOLAM 1 MG TAB PO SCH ×2 (08:17→21:30)
[2018-10-23] MEDS: FLUOXETINE HCL 20 MG CAP PO SCH (08:17)
[2018-10-23] MEDS: CLOPIDOGREL BISULFATE 75 MG TAB PO SCH (08:17)
[2018-10-23] MEDS: ACYCLOVIR 200 MG CAP PO SCH ×2 (08:18→18:42)
[2018-10-23] MEDS ORDERED: LISINOPRIL 20 MG TAB PO SCH (09:00)
[2018-10-23] MEDS ORDERED: AMLODIPINE BESYLATE 10 MG TAB PO SCH (09:00)
[2018-10-23] MEDS ORDERED: HYDRALAZINE HCL 10 MG TAB PO SCH (09:00)
[2018-10-23] MEDS ORDERED: POTASSIUM CHLORIDE 20 MEQ TAB CR PO SCH (09:00)
[2018-10-23] MEDS ORDERED: RANITIDINE HCL 50 MG PO SCH (09:00)
[2018-10-23] MEDS ORDERED: POTASSIUM CHLORIDE 10MEQ EA PO SCH (09:00)
[2018-10-23] MEDS ORDERED: FUROSEMIDE 20 MG TAB PO SCH (09:00)
[2018-10-23] MEDS ORDERED: LISINOPRIL 10 MG TAB PO SCH (09:00)
[2018-10-23] MEDS ORDERED: FUROSEMIDE 40 MG TAB PO SCH (09:00)
[2018-10-23] MEDS ORDERED: POLYETHYLENE GLYCOL 3350 17 GM PACK PO SCH (09:00)
--- NOTE | 2018-10-23 11:02 | NUR ---
Initial Assessment : Patient lives: with his son Admit/Transfer: Came in via ER Hospital/ER visits since last admit: Previous admission May POA/Emergency contact: Lidia Oliveira [phone] Current/Previous Home Health: No home care in the past PCP/Follow-up Care: Patient has followed up with Dr. Austin for digestive issues Current/Previous DME: N/A Medications (referring to index hospitalization or the first time you were in the hospital) a. Were changes made in your medications when you were in the hospital on [date of index hospitalization]? Yes No Not sure Explain: Note: If no or not sure, please skip to question d b. Did you understand the changes? Yes No Explain: c. Were you able to obtain your new medications right away? Yes Non/a SNF only Explain: d. Were you able to take your medications like the doctor wanted you to? Yes No Explain: e. Did the hospital give you an accurate, easy to understand list of medications when you left? Yes No n/a SNF only Explain: Scale of 1-10 how comfortable does patient feel with disease management in outpatient setting: Other Services: Employment Status: Receives SSI Areas of Concerns: He concerned with the swelling in his Abdomen and inability to move his bowel for 5 days. Referral Needs: Education Needs: IMM/ANNA given and signed (if applicable): ANNA Letter signed and placed in chart Goal for discharge:
--- NOTE | 2018-10-23 11:09 | NUR ---
Patient is currently OBSERVATION and has been educated on ANNA. Patient has signed ANNA, copy placed in chart and one copy given to patient.
[2018-10-23] MEDS ORDERED: METOPROLOL TARTRATE INJ 1 MG/ML VIAL IV PRN (11:15)
[2018-10-23] MEDS ORDERED: NITROGLYCERIN 0.4 MG SUBL SL PRN (11:15)
[2018-10-23] MEDS ORDERED: BISACODYL 10 MG SUPP PR ONE (11:30)
[2018-10-23] MEDS ORDERED: METHYLNALTREXONE BROMIDE 12 MG/0.6 ML VIAL SQ ONE ×2 (11:30→12:30)
[2018-10-23] MEDS ORDERED: MAGNESIUM HYDROXIDE 30 ML UDC PO ONE (11:30)
[2018-10-23 11:31] LABS: CHOL/HDL RATIO 3.5 (3.9-4.7); MAGNESIUM 2.1 MG/DL (1.3-2.1); PHOSPHORUS 5.1 MG/DL (2.3-4.7)
[2018-10-23 11:50] LABS: THYROID STIMULATING HORMONE 1.644 uIU/mL (0.350-4.940)
[2018-10-23] MEDS: FUROSEMIDE INJ 10 MG/ML 4 ML VIAL IV SCH ×2 (11:51→18:39)
[2018-10-23] MEDS: SENNOSIDES 8.6 MG TAB PO SCH ×2 (11:53→18:41)
--- NOTE | 2018-10-23 13:53 | NUR ---
CALLED [employer], SPOKE TO BREONNA MCKEON, HE ASKED FOR PATIENT'S LOCATION, REPRESENTTATIVE STATED THAT HE WOULD CHECK ON PATIENT.
[2018-10-23 14:55] LABS: CREATINE KINASE MB 0.8 ng/mL (0-5.0)
--- NOTE | 2018-10-23 15:14 | Diagnostic Imaging Report ---
SHOULDER RIGHT COMPLETE - 2 views HISTORY: Pain COMPARISON: None available. FINDINGS: No acute displaced fracture. Osseous alignment is within normal limits. The soft tissues appear unremarkable. IMPRESSION: No acute radiographic abnormality. Signed by: Dr. Cornelio Livingston MD on 10/23/2018 3:11 PM
[2018-10-23] MEDS: POLYETHYLENE GLYCOL 3350 17 GM PACK PO SCH (18:41)
--- NOTE | 2018-10-23 18:51 | History and Physical ---
CHIEF COMPLAINT: Shortness of breath. HISTORY OF PRESENT ILLNESS: This is a 58 years old male with a long history of coronary artery disease with multiple stents. The patient is now status post coronary artery bypass graft surgery back in May 2018. The patient came in with fluid overload. He is also complaining of constipation. The patient is otherwise stable at this time. PAST MEDICAL HISTORY: Coronary artery disease with coronary artery bypass graft surgery. Abdominal hernia repair. Chronic pain on pain management. Umbilical hernia. Anxiety disorder, depression. Hypertension, dyslipidemia, reflux. Chronic constipation due to opioid for pain control. SOCIAL HISTORY: The patient was an ex-smoker. He does smoke marijuana. No alcohol consumption. ALLERGIES: AMPHETAMINE, DEXTROAMPHETAMINE, VALPROIC ACID, RISPERIDONE. HOME MEDICATIONS: [place], acyclovir, Xanax, Norvasc, Coreg, clonidine, Plavix, fenofibrate, Prozac, Lasix, hydralazine, lisinopril, polyethylene glycol, potassium, ranitidine, spironolactone, and Movantik. PHYSICAL EXAMINATION: VITAL SIGNS: Temperature is 98, blood pressure 174/111, pulse rate 99, respiration 18. GENERAL: The patient is not in acute distress. He is constipated. HEENT: Normocephalic, atraumatic. NECK: Supple grossly. PULMONARY: Diminished breath sounds bilaterally with rales at the bases. CARDIOVASCULAR: S1, S2. Regular rate and rhythm. Sternal scar. ABDOMEN: Soft. Umbilical hernia reducible, soft, positive for tenderness, but no rebound or guarding. EXTREMITIES: No cyanosis, 2+ edema. NEUROLOGIC: No gross focal deficit. LABORATORY DATA: Sodium is 136, potassium 4, chloride 101, bicarb 25, BUN 22, creatinine 2.86, glucose 89. WBC 7.3, hemoglobin 10.6, hematocrit 35, platelets is 197. INR is 1.23. CT scan of abdomen and pelvis showed cardiomegaly and left pleural effusion. Small volume of diffuse ascites in the abdomen and pelvis, likely related to congestive heart failure. No abnormal distention of the GI tract. No wall thickening or evidence of bowel obstruction. Sigmoid diverticulosis with no CT evidence of acute diverticulitis. The appendix is normal. There is diffuse edema in the mesentery. Urinary bladder is compressed. No radiopaque stone or sludge in the gallbladder. Gallbladder wall thickening may be related to edema. IMPRESSION: 1. Unexa-yq-xdgnocn systolic dysfunction, congestive heart failure. 2. Generalized edema causing the patient pain more than at baseline. 3. Coronary artery disease with previous recent, within six months, coronary artery bypass graft surgery. 4. Chronic pain, opioid dependency. 5. Chronic constipation, although did not show up on CT scan of any stool burden. PLAN: Stool softener. Home medication. Diurese the patient aggressively. We will adjust the patient's medications. We will monitor the patient's electrolytes. We will check the echocardiogram once done. MD LUIS Hill/DEMETRIAL /[id number]
--- NOTE | 2018-10-23 19:24 | NUR ---
received report from day nurse. patient is resting comfortably in bed. bed is in lowest position and call padron is within reach.
[2018-10-24] VITALS (8 sets, daily range): BP systolic 99–119; BP diastolic 65–83
[2018-10-24] MEDS: FUROSEMIDE INJ 10 MG/ML 4 ML VIAL IV SCH ×3 (03:16→19:00)
[2018-10-24 05:35] LABS: BASOPHILS # (AUTO) 0.1 (0.0-0.1); BASOPHILS % 0.9 % (0.0-1.0); EOSINOPHILS # (AUTO) 0.2 (0.0-0.4); EOSINOPHILS % 2.9 % (0.0-6.0); HEMATOCRIT 35.1 % (38.2-49.6); HEMOGLOBIN 10.4 g/dL (14.0-18.0); LYMPHOCYTES # (AUTO) 1.1 (1.0-3.2); LYMPHOCYTES % 16.7 % (18.0-39.1); MEAN CORPUSCULAR HEMOGLOBIN 23.7 pg (28-32); MEAN CORPUSCULAR HGB CONC 29.6 g/dL (31-35); MEAN CORPUSCULAR VOLUME 80.1 fL (81-99); MONOCYTES # (AUTO) 0.8 (0.2-0.8); NEUTROPHILS # (AUTO) 4.3 (2.1-6.9); NEUTROPHILS % 66.2 % (38.7-80.0); PLATELET COUNT 192 x10e3/uL (140-360); RED BLOOD COUNT 4.38 x10e6/uL (4.3-5.7); RED CELL DISTRIBUTION WIDTH 17.3 % (11.7-14.4)
[2018-10-24 05:53] LABS: ANION GAP 11.8 mmol/L (8-16); CALCIUM 8.2 mg/dL (8.4-10.2); CREATININE, SERUM 2.13 mg/dL (0.72-1.25); POTASSIUM 3.8 mmol/L (3.5-5.1)
[2018-10-24] MEDS: CLONIDINE HCL 0.2 MG TAB PO SCH ×4 (06:06→17:58)
[2018-10-24] MEDS: AMLODIPINE BESYLATE 10 MG TAB PO SCH ×2 (06:07→17:55)
--- NOTE | 2018-10-24 06:41 | NUR ---
report given to day nurse. patient is resting comfortably in bed. bed is in lowest position and call padron is within reach.
--- NOTE | 2018-10-24 07:40 | NUR ---
patient resting in bed, Alert with no distress, denies any pain or SOB, call light in reach, bed alarm ON
[2018-10-24] MEDS: POLYETHYLENE GLYCOL 3350 17 GM PACK PO SCH ×2 (08:38→17:45)
[2018-10-24] MEDS: ASPIRIN 81 MG ENTERIC COATED PO SCH (08:38)
[2018-10-24] MEDS: SPIRONOLACTONE 25 MG TAB PO SCH (08:38)
[2018-10-24] MEDS: CARVEDILOL 12.5 MG TAB PO SCH ×2 (08:38→17:45)
[2018-10-24] MEDS: POTASSIUM CHLORIDE 20 MEQ TAB CR PO SCH (08:38)
[2018-10-24] MEDS: ACYCLOVIR 200 MG CAP PO SCH ×2 (08:39→17:45)
[2018-10-24] MEDS: FAMOTIDINE 20 MG TAB PO SCH (08:39)
[2018-10-24] MEDS: SENNOSIDES 8.6 MG TAB PO SCH ×2 (08:39→17:45)
[2018-10-24] MEDS: FLUOXETINE HCL 20 MG CAP PO SCH (08:39)
[2018-10-24] MEDS: FENOFIBRATE 145 MG TAB PO SCH (08:39)
[2018-10-24] MEDS: ALPRAZOLAM 1 MG TAB PO SCH ×2 (08:39→21:00)
[2018-10-24] MEDS: CLOPIDOGREL BISULFATE 75 MG TAB PO SCH (08:39)
[2018-10-24] MEDS: LISINOPRIL 20 MG TAB PO SCH ×2 (08:39→17:45)
[2018-10-24] MEDS: HYDROCODONE/APAP 10MG-325MG TAB PO PRN ×2 (10:20→17:55)
--- NOTE | 2018-10-24 15:00 | NUR ---
RECEIVED TO RM AAOX3 NO DISTRESS NOTED, UPDATED ON POC VOICED UNDERSTANDING, CALL LIGHT IN REACH, BED ALAR SET, WILL CONTINUE TO MONITOR
--- NOTE | 2018-10-24 15:20 | NUR ---
Patient got transfer to room 112, stable, denies any chest pain or SOB
--- NOTE | 2018-10-24 19:49 | NUR ---
RECEIVED PT IN BED AOX3 .RESPIRATIONS ARE EVEN AND UNLABORED .C/O ABD PAIN BUT PT REFUSED TO TAKE PAIN MEDICATION .CALL LIGHT WITH IN REACH .CONTINUE TO MONITOR
[2018-10-24] MEDS ORDERED: FUROSEMIDE INJ 10 MG/ML 4 ML VIAL IV SCH (21:00)
[2018-10-25] VITALS (8 sets, daily range): BP systolic 99–132; BP diastolic 69–86
[2018-10-25] MEDS: FUROSEMIDE INJ 10 MG/ML 4 ML VIAL IV SCH ×3 (03:00→16:54)
[2018-10-25] MEDS: AMLODIPINE BESYLATE 10 MG TAB PO SCH (04:58)
[2018-10-25 05:45] LABS: BASOPHILS # (AUTO) 0.1 (0.0-0.1); BASOPHILS % 0.9 % (0.0-1.0); EOSINOPHILS # (AUTO) 0.2 (0.0-0.4); EOSINOPHILS % 3.8 % (0.0-6.0); HEMOGLOBIN 10.1 g/dL (14.0-18.0); LYMPHOCYTES # (AUTO) 0.7 (1.0-3.2); LYMPHOCYTES % 12.9 % (18.0-39.1); MEAN CORPUSCULAR HEMOGLOBIN 23.7 pg (28-32); MEAN CORPUSCULAR HGB CONC 29.7 g/dL (31-35); MEAN CORPUSCULAR VOLUME 79.8 fL (81-99); MONOCYTES # (AUTO) 0.7 (0.2-0.8); MONOCYTES % 13.1 % (4.4-11.3); NEUTROPHILS # (AUTO) 3.9 (2.1-6.9); NEUTROPHILS % 68.9 % (38.7-80.0); PLATELET COUNT 195 x10e3/uL (140-360); RED BLOOD COUNT 4.26 x10e6/uL (4.3-5.7); RED CELL DISTRIBUTION WIDTH 17.4 % (11.7-14.4)
[2018-10-25] MEDS: CLONIDINE HCL 0.2 MG TAB PO SCH ×4 (06:00→16:53)
[2018-10-25 06:04] LABS: ANION GAP 11.7 mmol/L (8-16); CALCIUM 8.2 mg/dL (8.4-10.2); CREATININE, SERUM 2.23 mg/dL (0.72-1.25); POTASSIUM 3.7 mmol/L (3.5-5.1)
--- NOTE | 2018-10-25 06:04 | NUR ---
PT RESTING DENIES PAIN .NO ACUTE DISTRESS NOTED NOT ABLE TO GET STOOL..CALL LIGHT WITH IN REACH .CONTINUE TO MONITOR
[2018-10-25 06:18] LABS: % IRON SATURATION 10 % (15-50); IRON 23 ug/dL (65-175); TOTAL IRON BINDING CAPACITY 238 ug/dL (261-478); TRANSFERRIN 170 mg/dL (174-364)
--- NOTE | 2018-10-25 07:18 | NUR ---
Received patient and walking rounds complete. Patient awake at this time no signs of distress. Bed in lowest position, wheels locked, side rails up, luis light in reach. Will continue to monitor.
[2018-10-25] MEDS: POTASSIUM CHLORIDE 20 MEQ TAB CR PO SCH (08:21)
[2018-10-25] MEDS: LISINOPRIL 20 MG TAB PO SCH ×2 (08:21→16:54)
[2018-10-25] MEDS: SPIRONOLACTONE 25 MG TAB PO SCH (08:21)
[2018-10-25] MEDS: ASPIRIN 81 MG ENTERIC COATED PO SCH (08:21)
[2018-10-25] MEDS: FAMOTIDINE 20 MG TAB PO SCH (08:21)
[2018-10-25] MEDS: CARVEDILOL 12.5 MG TAB PO SCH ×2 (08:21→16:55)
[2018-10-25] MEDS: POLYETHYLENE GLYCOL 3350 17 GM PACK PO SCH ×2 (08:21→17:00)
[2018-10-25] MEDS: FLUOXETINE HCL 20 MG CAP PO SCH (08:21)
[2018-10-25] MEDS: ACYCLOVIR 200 MG CAP PO SCH ×2 (08:22→18:11)
[2018-10-25] MEDS: FENOFIBRATE 145 MG TAB PO SCH (08:22)
[2018-10-25] MEDS: SENNOSIDES 8.6 MG TAB PO SCH ×2 (08:22→17:00)
[2018-10-25] MEDS: ALPRAZOLAM 1 MG TAB PO SCH ×2 (08:22→21:00)
--- NOTE | 2018-10-25 10:33 | NUR ---
Patient A/O X3, even respirations on RA. Bowel sounds active, skin intact, no edema. Tele #24 paced. Patient is ambulatory with standby assist. Left AC 20 gauge IV SL. No complaints of pain at this time. Call light in reach, will continue to monitor.
[2018-10-25] MEDS: HYDROCODONE/APAP 10MG-325MG TAB PO PRN ×2 (13:40→20:07)
[2018-10-25 13:53] LABS: FOLATE 10.3 ng/mL (7.0-15.4)
--- NOTE | 2018-10-25 15:58 | NUR ---
Two attempts were made to consult Dr. Montes and no response back. Left 2 messages. Call placed to Dr. Fowler to inform and new order to cancel dr. montes consult and call dr. holcomb.
--- NOTE | 2018-10-25 16:54 | NUR ---
Nutrition Screen Note RD Recommendation for Physician: - Continue Cardiac diet Plan of Care: RD following, monitoring for tolerance and adequacy Nutrition reason for involvement: Dx screen- CHF Primary Diagnose(s): CHF, HTN, abdominal pain, constipation PMH: CAD, CABG, HTN, dyslipidemia, reflux, constipation 2/2 opiods, colon polyps per pt Ht: 64 in Wt: 207 lb BMI: 35.5 kg/m2 IBW: [address] Assessment: (10/25) 58 YOM admitted for CHF, HTN, abdominal pain, and constipation. Pt discussed during AM rounds, plan for possible colonoscopy. Pt seen today per dx screen for CHF. 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 Pt reports UBW of 203#, no wt loss noted. Pt denies any N/V currently, pt with BM today per chart. Pt requesting no fresh fruits and would like broth with meals to prevent further constipation, preferences added to [facility]. Pt very focused on discussing pain medication at time of visit, unable to redirect pt after multiple attempts and reminding the pt that I was the dietitian and not the doctor. Diet education not appropriate at this time due to mentation. Chart reviewed. Labs and meds reviewed. Will monitor and continue to follow. Current Diet: Cardiac Malnutrition Evaluation (10/25/18) The patient does not meet criteria for a specified degree of malnutrition at this time. Will re-evaluate at follow-up as appropriate. Diet Education Needs Assessment: Diet education indicated, however not appropriate at this time. Nutrition Care Level: Low Signed: Carine Roach RD, LD, [facility]
--- NOTE | 2018-10-25 19:40 | NUR ---
RECEIVED PT IN BED AOX3 .PT DENIES PAIN RESPIRATIONS ARE EVEN AND UNLABORED .CALL LIGHT WITH IN REACH .CONTINUE TO MONITOR
[2018-10-25] MEDS ORDERED: DICYCLOMINE HCL 20 MG TAB PO PRN ×2 (21:00)
[2018-10-26] VITALS: BP 113/85
[2018-10-26] MEDS: FUROSEMIDE INJ 10 MG/ML 4 ML VIAL IV SCH ×2 (03:00→11:00)
--- NOTE | 2018-10-26 03:59 | Consultation ---
DATE OF CONSULTATION: 10/25/2018 REASON FOR CONSULTATION: Generalized abdominal pain. HISTORY OF PRESENT ILLNESS: A 58-year-old male with a host of comorbidities most notably coronary artery disease, status post CABG, PCI with the stents (on dual antiplatelet therapy), severe congestive heart failure status post AICD/pacemaker, got admitted with worsening of congestive heart failure. He is also complaining of diffuse lower abdominal pain. Reports no upper GI symptoms. Regular bowel movements daily. No blood in the stool. Denies any upper GI symptoms. REVIEW OF SYSTEMS: A 12-point system reviewed. Symptomatology is limited as per HPI. PAST MEDICAL HISTORY: CAD, umbilical hernia, anxiety, depression, hypertension, dyslipidemia, GERD, chronic constipation. FAMILY HISTORY: Noncontributory. 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 SOCIAL HISTORY: Smokes marijuana. Quit smoking cigarettes many years ago. Does not drink alcohol. PAST SURGICAL HISTORY: AICD placement. ALLERGIES: AMPHETAMINE, DIVALPROEX, RISPERIDONE. INPATIENT MEDICATIONS: Reviewed as per MAR. PHYSICAL EXAMINATION: VITAL SIGNS: Temperature 97.2, pulse 70, respirations 21, blood pressure 125/73, oxygen saturation 93% on room air. GENERAL: Not in any acute distress. HEENT: Oral mucosa is moist. Anicteric sclerae. LYMPHATIC: No neck or axillary adenopathy. CVS: S1 and S2 regular. LUNGS: Bilaterally grossly clear. ABDOMEN: Obese. Soft. Small reducible umbilical hernia with surrounding tenderness, mild left lower quadrant tenderness on deep palpation without rebound, rigidity, or guarding. Positive bowel sounds. EXTREMITIES: Warm. No leg edema. LABORATORY DATA: WBC 5.58, hemoglobin 10.1, hematocrit 34, MCV 79.8, platelet count 195. Sodium 137, potassium 3.7, chloride 101, bicarb 28, BUN 33, creatinine 2.23, glucose 85. CT of the abdomen and pelvis with contrast on 10/22/2018 showed: 1. Cardiomegaly and left pleural effusion. Reflux of contrast into the IVC and hepatic vein and mesenteric edema, likely reflective of congestive heart failure. 2. Small volume diffuse ascites in the abdominal and pelvis, this is also likely due to underlying congestive heart failure. 3. Gallbladder wall thickening with no opaque calculi. This may be due to generalized edema, although gallbladder pathology is not excluded. If clinically suspected, gallbladder ultrasound may be helpful for further characterization. IMPRESSION: 1. Umbilical hernia, does not seem to be incarcerated, but there is a point tenderness on abdominal examination. 2. Diffuse lower quadrant pain without any rebound, rigidity, or guarding on physical examination. This is a nonspecific lower abdominal pain likely due to underlying irritable bowel syndrome. PLAN: Continue present medical management. Surgery consult for evaluation of umbilical hernia. I will add antispasmodic for abdominal pain. We will continue to monitor him clinically. No GI endoscopy is indicated based upon history, physical examination, and CT reports. I thank Dr. Fowler for allowing me to participate in the care of this patient. Mono Neal MD SA/KEVIN /[id number]
[2018-10-26 04:00] VITALS: BP 102/73
--- NOTE | 2018-10-26 05:46 | NUR ---
PT RESTING .DENIES PAIN .CALL LIGHT WITH IN REACH .CONTINUE TO MONITOR
[2018-10-26] MEDS: AMLODIPINE BESYLATE 10 MG TAB PO SCH (06:00)
[2018-10-26] MEDS: CLONIDINE HCL 0.2 MG TAB PO SCH ×2 (06:00)
--- NOTE | 2018-10-26 07:24 | NUR ---
Received patient and walking rounds complete. Patient up to shower at this time, no signs of distress. Call light in reach, will continue to monitor.
[2018-10-26 07:51] VITALS: BP 143/92
[2018-10-26] MEDS: ASPIRIN 81 MG ENTERIC COATED PO SCH (08:48)
[2018-10-26] MEDS: SPIRONOLACTONE 25 MG TAB PO SCH (08:48)
[2018-10-26] MEDS: CARVEDILOL 12.5 MG TAB PO SCH (08:49)
[2018-10-26] MEDS: ALPRAZOLAM 1 MG TAB PO SCH (08:49)
[2018-10-26] MEDS: POTASSIUM CHLORIDE 20 MEQ TAB CR PO SCH (08:49)
[2018-10-26] MEDS: FAMOTIDINE 20 MG TAB PO SCH (08:49)
[2018-10-26] MEDS: SENNOSIDES 8.6 MG TAB PO SCH (08:49)
[2018-10-26] MEDS: ACYCLOVIR 200 MG CAP PO SCH (08:49)
[2018-10-26] MEDS: POLYETHYLENE GLYCOL 3350 17 GM PACK PO SCH (08:49)
[2018-10-26] MEDS: FENOFIBRATE 145 MG TAB PO SCH (08:49)
[2018-10-26] MEDS: FLUOXETINE HCL 20 MG CAP PO SCH (08:49)
[2018-10-26] MEDS ORDERED: LISINOPRIL 10 MG TAB PO SCH (09:00)
[2018-10-26] MEDS ORDERED: LISINOPRIL 20 MG TAB PO SCH (09:00)
[2018-10-26 09:46] VITALS: BP 143/92
[2018-10-26] MEDS ORDERED: FUROSEMIDE40 MG PO (09:50)
[2018-10-26] MEDS ORDERED: SENNA S TABLET1 EACH PO (09:52)
[2018-10-26] MEDS ORDERED: DICYCLOMINE HCL20 MG PO (09:53)
[2018-10-26] MEDS ORDERED: ECOTRIN81 MG PO (09:55)
--- NOTE | 2018-10-26 10:00 | NUR ---
Removed patients IV. Catheter tip intact and pressure dressing applied.
--- NOTE | 2018-10-26 11:25 | Progress Note ---
DATE: 10/26/2018 SUBJECTIVE: The patient reports lower abdominal discomfort for which he was prescribed Bentyl yesterday. Denies any upper GI symptoms. REVIEW OF SYSTEMS: GENERAL: No fever or chills. CVS: No chest pain or palpitation. RESPIRATORY: No cough or expectoration. INPATIENT MEDICATIONS: List reviewed, as per OCT. PHYSICAL EXAMINATION: VITAL SIGNS: Temperature 95.7, pulse 71, respirations 22, blood pressure 143/92, and oxygen saturation 97% on room air. GENERAL: Not in any acute distress. He has tattoos all over his body. HEENT: Oral mucosa is moist. Anicteric sclerae. ABDOMEN: Soft, protuberant belly, nondistended. Poorly localized lower quadrant tenderness without rebound, rigidity, or any guarding. Positive bowel sounds. No mass or hernia. LABORATORY DATA: WBC 5.58, hemoglobin 10.1, hematocrit 34.0, MCV 79.8, and platelet count 195. Sodium 137, potassium 3.7, chloride 101, bicarb 28, BUN 33, creatinine 2.23, and glucose is 85. IMPRESSION: Lower abdominal discomfort, which is off and on with benign abdominal examination. This is suggestive of nothing but irritable bowel syndrome. PLAN: Continue Bentyl as needed. High-fiber diet. I have given the patient my business card to follow up with me in the office within two weeks post discharge. He is on [place]. Therefore, he should be on daily bowel regimen. The patient can also be discharged from GI standpoint. Mono Neal MD SA/KEVIN /[id number]
--- NOTE | 2018-10-26 11:40 | NUR ---
PATIENT AMBULATING. PATIENT AND SON REQUESTED WALKER FOR DISCHARGE.
--- NOTE | 2018-10-26 12:10 | NUR ---
Patient discharged from facility. Patient gathered al personal belongings, discharge instructions and follow up information. Patient left unit in wheelchair and went home with son via private auto. No signs of distress when leaving facility.
--- NOTE | 2018-10-26 13:57 | NUR ---
ORDERS FOR OP CARDIAC REHAB CM CALLED AND SPOKE WITH TRACEY AT [facility] THEY ARE IN NETWORK WITH [facility] FAXED CLINICAL TO THEM; CONFIRMATION REC'D GAVE PT AND SON MY NAME AND NUMBER AND TRACEY'S NAME AND NUMBER FOR QUESTIONS/CONCERNS TRACEY WILL CALL PT AND SCHEDULE APPOINTMENT TRACEY: PHONE [phone]; FAX: [phone]
--- NOTE | 2018-10-27 02:35 | Discharge Summary ---
PRIMARY CARE PHYSICIAN: Santana Snell DO CONSULTANTS: 1. César Shahid MD. 2. Marco Baumann MD. FINAL DIAGNOSES: 1. Coronary artery disease with cardiomyopathy with ICD, ejection fraction of 15% with a history of recent coronary artery bypass graft surgery. 2. Mblog-gi-ndyevst exacerbation of systolic dysfunction, congestive heart failure. 3. Constipation with abdominal distention, resolved. SUMMARY: A 58-year-old male came in with wnlrx-kq-swjuojw systolic dysfunction and congestive heart failure. His ejection fraction was approximately 15%. He had ICD in place. The patient received aggressive diuresis with IV furosemide. He is doing much better. He was constipated and medication was given for bowel protocol. He is doing much better now. He has been cleared by Gastroenterology in consultation for discharge. No indication for colonoscopy. The patient is also cleared by his computer numerical control grinder, Dr. César Shahid, for discharge as well. The patient is stable. He will go home with adjustment and is to follow on his home medication. He will take Lasix 40 mg three times a day instead of twice a day, senna S one tablet b.i.d., Bentyl 20 mg q.a.c. h.s., and Ecotrin 81 mg daily. The patient will resume his other home medication. The patient is otherwise stable, discharged home today. Daniele Fowler MD JT/MODL /[id number]
[2018-10-27] MEDS ORDERED: AMLODIPINE BESYLATE 5 MG TAB PO SCH (06:00)
[2018-10-27] MEDS ORDERED: AMLODIPINE BESYLATE 10 MG TAB PO SCH (06:00)
== END 2018-10-26 12:10 | disposition home or self-care (01) | DRG 292 ==
LOC: ER 11:52 → ERHOLD 16:12 → IMCU 17:57 → OBSVTOIN 10-24 10:17 → MED/SURG 10-24 15:15
PROVIDERS: ADMIT Internal Medicine; ATTEND Internal Medicine
DX: I11.0 Hypertensive heart disease with heart failure (principal); R18.8 Other ascites; I25.10 Atherosclerotic heart disease of native coronary artery without angina pectoris; I50.23 Acute on chronic systolic (congestive) heart failure; Z95.5 Presence of coronary angioplasty implant and graft; Z95.1 Presence of aortocoronary bypass graft; G89.29 Other chronic pain; K59.03 Drug induced constipation; T40.2X5A Adverse effect of other opioids, initial encounter; E78.5 Hyperlipidemia, unspecified; Z79.891 Long term (current) use of opiate analgesic; R10.9 Unspecified abdominal pain; Z95.810 Presence of automatic (implantable) cardiac defibrillator; F12.10 Cannabis abuse, uncomplicated; K58.9 Irritable bowel syndrome, unspecified; K42.9 Umbilical hernia without obstruction or gangrene; D64.9 Anemia, unspecified
CPT/HCPCS: 36415; 71045; 71046; 74018; 74177; 76705; 80048; 80053; 80061; 80307; 81001; 82270; 82550; 82553; 82607; 82746; 83036; 83540; 83605; 83735; 83880; 84100; 84443; 84466; 84484; 84550; 85025; 85610; 85730; 93005; 93306; 99284; G0378; J0360; J1940; J2270; J2405; J7030; Q9967

== ENCOUNTER 2018-12-26 14:36 | Emergency (ER) | payer MEDICARE, OTHER ==
[~2018-12-26] VITALS: Ht 162.6 cm; Wt 90.7 kg
[~2018-12-26 14:36] MED LIST changes: +ACYCLOVIR200 MG PO; +AMLODIPINE BESY10 MG PO; +CLONIDINE HCL0.2 MG PO; +CLOPIDOGREL75 MG PO; +DICYCLOMINE HCL20 MG PO; +ECOTRIN81 MG PO; +FENOFIBRATE145 MG PO; +FLUOXETINE HCL20 MG PO; +FUROSEMIDE40 MG PO; +HYDRALAZINE HCL10 MG PO; +POLYETHYLENE GL17 GM PO; +POTASSIUM CHLO10 ME1 PO; +RANITIDINE HCL75 MG PO; +SENNA S TABLET1 EACH PO; +SPIRONOLACTONE25 MG PO; +movantik PO
--- OUTSIDE RECORDS SUMMARY | 2018-12-26 14:39 | XMS REPORT | Clinical Summary ---
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 Cardiomyopathy 01/02/2018 Precordial chest pain Right upper quadrant abdominal pain Unstable angina Anxiety Essential hypertension Encounters Care Team Description Date Type Specialty Luigi Quintana 01/05/2018 Orders Only Cardiology Jus Christianson MD Medrano, Vanessa N, Physician Precordial chest pain (Primary Dx); Right upper quadrant abdominal pain; Unstable angina; Coronary artery disease involving [place] coronary artery of [place] heart with angina pectoris 01/02/2018 Emergency - 01/05/2018 after 12/25/2017 Immunizations Name Dates Previously Given Next Due [...] 2010 Annual (FIT/FOBT) Age 50 to 75 CORONARY ARTERY DISEASE 01/04/2019 01/04/2018, 06/18/2009 AGE 18 AND UP IMM Influenza Seasonal 05/10/2019 Oct to October (>/=19 yrs) Procedures Comments Procedure Name Priority Date/Time Associated [...] EKG Routine 01/02/2018 4:35 PM CDT after 12/25/2017 Results * PTT (01/05/2018 10:20 AM CDT) [...] :1960 Exam Date: 01/05/2018 08:42 Exam Location: [facility] Echo Ordering Phys: MARKOS BOND (hchd/medrav) Referring Phys:[id number], SLIME Reading Phys:Win Blanco MD Fellow Phys: Fellow Phys: Diesel Machinist: Luigi Quintana Reason For Exam: Indications: Cardiomyopathy ICD-9 Codes: I42.3 Exam Type: TRANSTHORACIC ECHO (TTE) Procedure CPT:10453 Addtional CPT: Ht (in): 64 BSA: 1.97HR: [...] E' Lateral Ratio 35 FINDINGS Left Ventricle Iraan is foreshortened. Severe left ventricular dilatation. Left [...] is now more reduced as well. 1. Iraan is foreshortened. Severe left ventricular dilatation. Left [...] 3. Biatrial dilation. 4. Mild MR and IL. 5. Trace pericardial effusion. Win Blanco MD [...] E' Lateral Ratio 35 Performing Organization Address City/[facility] Phone Number SMS * MAGNESIUM (01/05/2018 1:30 AM CDT) Only the most recent of 5 results within the time period is included. Magnesium 2.1 1.9 - 2.7 mg/dL BT MAIN-STATION 1 Performing Organization Address [place]/[facility] Phone Number MISYS BT MAIN-STATION 1 * [...] results within the time period is included. [facility] Signature CO2 27 21 - 31 [...] BT MAIN-STATION Afr-Am 1 Performing Organization Address [facility] Phone Number MISYS BT MAIN-STATION 1 * HEMOGLOBIN A1C (01/04/2018 4:45 AM CDT) Hemoglobin A1c 5.7 4.3 - 6.1 % BT DIAGNOSTIC IMMUNOLOGY Est Average 116.9 mg/dL BT DIAGNOSTIC Gluc IMMUNOLOGY Specimen Blood Performing Organization Address [facility] Phone Number MISYS BT DIAGNOSTIC IMMUNOLOGY * TSH (01/04/2018 4:45 AM CDT) TSH 1.36 0.57 - 3.74 uIU/mL BT MAIN-STATION 1 Specimen Blood Performing Organization Address [facility] Phone Number MISYS BT MAIN-STATION 1 * LIPID PROFILE (01/04/2018 4:45 AM CDT) Cholesterol 133 mg/dL BT MAIN-STATION Comment: 1 REFERENCE RANGE: Desirable: <200 mg/dL Borderline: 200-240 mg/dL High Risk: >240 mg/dL Triglyceride 149 <150 mg/dL BT MAIN-STATION Comment: 1 REFERENCE RANGE: Normal: <150 mg/dL Borderline High: 150-199 mg/dL High: 200-499 mg/dL Very High: >zr=703 mg/dL HDL 47 mg/dL BT MAIN-STATION Comment: 1 Increased CHD risk: <40 mg/dL Decreased CHD risk: >60 mg/dL LDL 56 mg/dL BT MAIN-STATION Comment: 1 REFERENCE RANGE: Optimal: <100 mg/dL Near Optimal: 100-129 mg/dL Borderline High: 130-159 mg/dL High: 160-189 mg/dL Very High: >eh=803 mg/dL Specimen Blood Performing Organization Address [facility] Phone Number MISYS BT MAIN-STATION 1 * 12 LEAD EKG (01/04/2018 3:24 AM CDT) 12 LEAD EKG FOR [facility] Test Date:2018-01-04 Pat Name: MARYA MILLAN Department: Room: Gender: Food And Beverage Coordinator: [id number] :1960-1 08-30 Requested By: Order Number: Marcos sharma MD: Lilliam Burch M.D. Measurements Intervals [place] Rate: 68 P:45 IL: 153 QRS: 255 QRSD: 162 T: 75 QT: 466 QTc:499 Interpretive Statements ELECTRONIC VENTRICULAR PACEMAKER ABNORMAL RHYTHM ECG Electronically Signed On 01-04-18 06:16:53 CDT by Lilliam Burch M.D. Performing Organization Address [facility] Phone Number SMS * URINE DRUG SCREEN (01/03/2018 11:20 AM CDT) Amphetamine Negative NEG BT MAIN-STATION Comment: 1 Calibrated Standard: D-Methamphetamine Positive if urine level >gf=8097 ng/mL Test performed on [id number] using EMIT Immunoassay Barbiturate Negative NEG BT MAIN-STATION Comment: 1 Calibrated Standard: Secobarbital Positive if urine level is >yi=350 ng/mL Test performed on [id number] using EMIT Immunoassay Benzodiazepine Positive (A) NEG BT MAIN-STATION Comment: 1 Calibrated Standard: Lormethazepam Positive if urine level is >ef=680 ng/mL Test performed on [id number] using EMIT Immunoassay Cannabinoid Negative NEG BT MAIN-STATION Comment: 1 Calibrated Standard: 11 nor-delta(9)-THC carboxylic a Positive if urine level >or=50 Test performed on [id number] using EMIT Immunoassay Cocaine Negative NEG BT MAIN-STATION Comment: 1 Calibrated Standard: Benzoylecgonine Positive if urine level >we=243 Test performed on [id number] using EMIT Immunoassay Opiate, Ur Positive (A) NEG BT MAIN-STATION Comment: 1 Calibrated Standard: Morphine Positive if urine level >wm=943 Test performed on [id number] using EMIT Immunoassay PCP Negative NEG BT MAIN-STATION Comment: 1 Calibrated Standard: Phencyclidine Positive if urine level >or=25 Test performed on [id number] using EMIT Immunoassay Urine Toxicology Screen results are to be used only for Medical purposes. Specimen Urine Performing Organization Address [place]/[facility] Phone Number MISYS BT MAIN-STATION 1 * TROPONIN I (01/03/2018 8:32 AM CDT) Only the most recent of 3 results within the time period is included. Troponin I 0.06 (H) <0.04 ng/mL BT MAIN-STATION 1 Specimen Blood Performing Organization Address [facility] Phone Number MISYS BT MAIN-STATION 1 * 12 LEAD EKG (01/03/2018 8:29 AM CDT) 12 LEAD EKG FOR [facility] Test Date:2018-01-03 Pat Name: MARYA MILLAN Department: Room: Gender: Food And Beverage Coordinator: LILLIEJUAN [id number] :1959-08 Requested By: Order Number: Marcos sharma MD: Lilliam Burch M.D. Measurements Intervals [place] Rate: 66 P:48 IL: 156 QRS: 249 QRSD: 160 T: 71 QT: 491 QTc:515 Interpretive Statements ELECTRONIC VENTRICULAR PACEMAKER ABNORMAL RHYTHM ECG Electronically Signed On 01-03-18 12:06:36 CDT by Lilliam Burch M.D. Performing Organization Address [facility] Phone Number SMS * 12 LEAD EKG (01/02/2018 8:45 PM CDT) 12 LEAD EKG FOR [facility] Test Date:2018-01-02 Pat Name: MARYA MILLAN Department: Room: Gender: M Food And Beverage Coordinator: [id number] :1959-08 Requested By: Order Number: Marcos sharma MD: jose jimenez Measurements Intervals [place] Rate: 77 P:66 IL: 156 QRS: -65 QRSD: 149 T: 69 QT: 449 QTc:511 Interpretive Statements ELECTRONIC VENTRICULAR PACEMAKER ABNORMAL RHYTHM ECG Electronically Signed On 01-05-18 16:21:40 CDT by jose jimenez Performing Organization Address [facility] Phone Number [facility] * TROPONIN I POC (01/02/2018 [...] 3 Clarity Clear BT MAIN-STATION 3 Spec [place] 1.015 1.001 - 1.035 BT MAIN-STATION 3 [...] MAIN-STATION 3 Specimen Urine Performing Organization Address City/[facility] Phone Number MISYS BT MAIN-STATION 3 * [...] MD, 01/02/2018 9:41 PM Performing Organization Address [facility] Phone Number SMS * 12 LEAD EKG (01/02/2018 5:16 PM CDT) 12 LEAD EKG FOR [facility] Test Date:2018-01-02 Pat Name: MARYA MILLAN Department: Room: Gender: M Food And Beverage Coordinator: [id number] :1960-1 08-30 Requested By: Order Number: Marcos sharma MD: Markos Bond Measurements Intervals [place] Rate: 70 P:49 IL: 196 QRS: 6 QRSD: 133 T: -87 QT: 467 QTc:505 Interpretive Statements SINUS RHYTHM POSSIBLE LEFT ATRIAL ENLARGEMENT INTRAVENTRICULAR CONDUCTION DELAY LATERAL MYOCARDIAL INFARCTION, OF INDETERMINATE AGE Electronically Signed On 01-02-18 18:08:23 CDT by Markos Bond Performing Organization Address [place] Phone Number [facility] * POCT BNP (BRAIN NATRIURETIC PEPTIDE) (01/02/2018 5:13 PM CDT) B Natr Pept POC 590 (H) 0 - 100 pg/mL BT MAIN-STATION 1 Performing Organization Address [place] Phone Number MISYS BT MAIN-STATION 1 * [...] BT MAIN-STATION Afr-Am 1 Performing Organization Address [place]/[facility] Phone Number MISYS BT MAIN-STATION 1 [...] MAIN-STATION 1 Specimen Blood Performing Organization Address [place]/[facility] Phone Number MISYS BT MAIN-STATION 1 * LIPASE (01/02/2018 4:45 PM CDT) Lipase 56 11 - 82 U/L BT MAIN-STATION 1 Specimen Blood Performing Organization Address [facility] Phone Number MISYS BT MAIN-STATION 1 * DIGOXIN (01/02/2018 4:45 PM CDT) Digoxin <0.3 (L) 0.80 - 2.00 ng/mL BT MAIN-STATION 3 Performing Organization Address [place]/[facility] Phone Number MISYS BT MAIN-STATION 3 * 12 LEAD EKG (01/02/2018 4:35 PM CDT) 12 LEAD EKG FOR [facility] Test Date:2018-01-02 Pat Name: MARYA MILLAN Department: Room: Gender: M Food And Beverage Coordinator: [id number] :1960-1 08-30 Requested By: Order Number: Marcos sharma MD: Markos Bond Measurements Intervals [place] Rate: 80 P:70 IL: 202 QRS: 75 QRSD: 125 T: -81 QT: 428 QTc:496 Interpretive Statements SINUS RHYTHM POSSIBLE LEFT ATRIAL ENLARGEMENT LATERAL MYOCARDIAL INFARCTION, OF INDETERMINATE AGE MODERATE T-WAVE ABNORMALITY, CONSIDER INFERIOR ISCHEMIA Electronically Signed On 01-02-18 18:08:36 CDT by Markos Bond Performing Organization Address [facility] Phone Number [facility] after 12/25/2017 Insurance Type Payer Benefit Subscriber ID Effective Phone Address Plan / Dates Group [facility] xxxxxxxxx 2017-P [phone] [address] MEDICARE resent [id number] [place] [address] [facility] SELF-PAY SELF-PAY xxxxxx 2018- [phone] [id number] [facility] [address] [place] [address] Advance Directives For more information, please contact: [id number] [place] [address] Date Inactivated Comments Code Status Date Activated 01/05/2018 2:47 PM Full Code 01/02/2018 10:57 PM
--- OUTSIDE RECORDS SUMMARY | 2018-12-26 14:39 | XMS REPORT | Clinical Summary ---
Author Author [facility] Address Unknown Phone Unavailable Care Team Providers Care Hide And Skin Classer Name Role Phone Santana Snell PCP Allergies [...] Signs Not on file Plan of Treatment Not on file Implants Device Identifier Shelf Expiration Date Model / Serial / Lot Implanted Type Area Manufactur er 06/04/2017 5076 - 45CM / [id number] / S[employer] Mr Conditional / 5076 - [employer] 45cm Implanted: Qty: 1 on 07/27/2015 05/10/2017 4298 - 78CM / [id number] / 4298 - 78cm [employer] Implanted: Qty: 1 on 07/27/2015 11/21/2016 [id number] / [id number] / Viva Quad Xt Operations Scheduler-D / [id number] [employer] Implanted: Qty: 1 on 07/27/2015 Procedures Comments Procedure Name Priority Date/Time Associated Diagnosis ARRYTHMIA IMPLANT REPORT 04/28/2018 - SCAN 3:10 PM CDT after 12/25/2017 Results * ARRYTHMIA IMPLANT REPORT - SCAN (04/28/2018 3:10 PM CDT) Narrative Performed At after 12/25/2017 Insurance Payer Benefit Subscriber ID Type Phone Address Plan / Group [employer] TEXAN[employer] xxxxxxxxx [facility] [address]racted [address] nguyen (Home) [address] [place] [address] Advance Directives For more information, please contact: [address] [address] Date Inactivated Comments Code Status Date Activated 07/18/2017 1:53 PM Full Code 07/15/2017 7:49 AM This code status was determined by: Patient 07/29/2015 4:59 PM Full Code 07/20/2015 7:28 PM This code status was determined by: Patient
--- OUTSIDE RECORDS SUMMARY | 2018-12-26 14:40 | XMS REPORT | Continuity of Care Document ---
Author Author Rosalba hernandez [facility] Interface Address Unknown Phone Unavailable Problems Problem Status Onset Date Classification Date Reported Comments Source ABDOMINAL PAIN, DIFFUSE Active 09/21/2018 [facility] ABD PAIN Active 09/21/2018 [facility] ABDOMINAL PAIN, DIFFUSE Active 09/21/2018 [facility] R06.02 - SHORTNESS OF BREATH Active 06/23/2018 [facility] [place] FOLLOW UP Active 09/01/2017 [facility] 3 WEEK F/U Active 03/09/2017 [facility] TAVR Active 02/23/2017 [facility] Rffcu-me-tatmiop kidney injury Active Problem 09/26/2018 [facility] Anxiety Active Problem 09/26/2018 [facility] Coronary artery disease Active Problem 09/26/2018 [facility], [facility] Chronic renal insufficiency Active Problem 09/26/2018 [facility], [facility] Chronic systolic heart failure Active Problem 09/26/2018 [facility], [facility] Diverticulosis Resolved Problem 09/26/2018 [facility], [facility]AS [facility] Old ME (<span [id number]">Confirmed</span>) Resolved Problem 09/26/2018 [facility] Hypertension Active Problem 09/26/2018 [facility], TH[facility] Ischemic cardiomyopathy Active Problem 09/26/2018 [facility], [facility] Hernia, umbilical Active Problem 09/26/2018 [facility], THOMAS Hernandez[facility] UNSPECIFIED ABDOMINAL PAIN Active [facility] Medications Medication Details Route Status Patient Instructions Ordering Provider Order Date Source Furosemide 40 MG Oral Tablet 40 mg=1 tab, PO, Daily, # 30 tab, 0 Refill(s), Pharmacy: [id number] Active 09/24/2018 [facility] Docusate Sodium 100 MG Oral Capsule [Colace] 100 mg=1 cap, PO, BID, 0 Refill(s) Active 09/24/2018 [facility] Potassium Chloride 20 mEq, 1 tab, Route: PO, Drug form: ERTAB, ONCE, Dosing Weight 92.727, kg, Start date: 09/24/18 9:35:00 FR[employer]CHISE SALES MANAGER, Stop date: 09/24/18 9:35:00 CSTNotes: (Same as: K-Dur 20) "Do Not Crush" Give with food and full glass of water For patients unable to swallow tablet, dissolve in one half glass of water. Allow about 2 minutes for the tablets to disintegrate. Stir before giving to prepare slurry and administer. Please exclude Patients with feeding tube less than 14 Syrian (Dobhoff, J-tube etc) and pediatric and patients. Inactive 09/24/2018 [facility] Ergocalciferol 50,000 IntlUnit, 1 cap, Route: PO, Drug form: CAP, Daily, Dosing Weight 92.727, kg, Start date: 09/23/18 9:00:00 FR[employer]CHISE SALES MANAGER, Duration: 3 day, Stop date: 09/25/18 9:00:00 CSTNotes: (Same as: Vitamin D) "Do Not Crush" No Longer Active 09/23/2018 [facility] Lasix 40 mg, 4 mL, Route: IVP, Drug form: INJ, BID Diuretic, Dosing Weight 92.727, kg, Start date: 09/23/18 8:00:00 FR[employer]CHISE SALES MANAGER, Duration: 30 day, Stop date: 10/22/18 16:00:00 CDTNotes: (Same as: Lasix) MEDICATION WASTE Product Size: 40 mg Product Wasted: ___ mg No Longer Active 09/23/2018 [facility] Lopressor 2.5 mg, 2.5 mL, Route: IVP, Drug form: INJ, Q3H, Dosing Weight 92.727, kg, PRN Tachycardia, Start date: 09/23/18 6:41:00 FR[employer]ISE SALES MANAGER, Duration: 30 day, Stop date: 10/23/18 6:40:00 CDTNotes: (Same as: Lopressor) Push over 2 minutes No Longer Active 09/23/2018 [facility] Morphine 2 mg, 1 mL, Route: IVP, Drug form: SOLN, Q2H, Dosing Weight 92.727, kg, PRN Chest Pain, Start date: 09/23/18 6:41:00 FR[employer]CHISE SALES MANAGER, Duration: 30 day, Stop date: 10/23/18 6:40:00 CDT No Longer Active 09/23/2018 [facility] Hydralazine 10 mg, 0.5 mL, Route: IV, Drug form: INJ, Q4H, Dosing Weight 92.727, kg, PRN Hypertension, Start date: 09/23/18 6:41:00 FRANCHISE SALES MANAGER, Duration: 30 day, Stop date: 10/23/18 6:40:00 CDTNotes: (Same as: Apresoline) Push over 5 minutes No Longer Active 09/23/2018 [facility] Zosyn 3.375 gm, Route: IVPB, ABXQ8H, Dosing Weight 92.727, kg, CrCl >=20 ml/min infuse over 4 hours, Start date: 09/22/18 22:00:00 FR[employer]CHISE SALES MANAGER, Duration: 5 day, Stop date: 09/27/18 14:00:00 FRANCHISE SALES MANAGER, ABX Indication: Intra- abdominal InfectionNotes: (Same as: Zosyn) Dosing based on Piperacillin component MEDICATION WASTE Product Size: 3375 mg Product Wasted: ___ mg No Longer Active 09/23/2018 [facility] sennosides, HALF-WAY 17.2 mg, 2 tab, Route: PO, Drug Form: TAB, Dosing Weight 92.727, kg, BID, Start date: 09/22/18 20:00:00 FRANCHISE SALES MANAGER, Duration: 30 day, Stop date: 10/22/18 8:00:00 CDTNotes: (Same as: Senokot) No Longer Active 09/23/2018 [facility] Docusate Sodium 100 MG Oral Capsule [Colace] 100 mg, 1 cap, Route: PO, Drug form: CAP, BID, Dosing Weight 92.727, kg, Start date: 09/22/18 20:00:00 FRANCHISE SALES MANAGER, Duration: 30 day, Stop date: 10/22/18 8:00:00 CDTNotes: (Same as: Colace) (Do Not Crush) No Longer Active 09/23/2018 [facility] Flomax 0.4 mg, 1 cap, Route: PO, Drug form: CAP, After Dinner, Dosing Weight 92.727, kg, Start date: 09/22/18 17:00:00 FRANCHISE SALES MANAGER, Duration: 30 day, Stop date: 10/21/18 17:00:00 CDTNotes: (Same As: Flomax) "Do Not Crush" No Longer Active 09/22/2018 [facility] Lactulose 1,000 ml, Route: NH, Drug Form: NANDO, Dosing Weight 92.727, kg, ONCE, Start date: 09/22/18 14:26:00 FRANCHISE SALES MANAGER, Stop date: 09/22/18 14:26:00 FRANCHISE SALES MANAGER, 300 mL lactulose + 700 mL waterNotes: Lactulose 300ml, Water for Irrigation 700ml - total [id number] Inactive 09/22/2018 [facility] Spironolactone 50 mg, 1 tab, Route: PO, Drug form: TAB, Daily, Dosing Weight 92.727, kg, Start date: 09/22/18 9:00:00 FRANCHISE SALES MANAGER, Duration: 30 day, Stop date: 10/21/18 9:00:00 CDTNotes: (Same As: Aldactone) No Longer Active 09/22/2018 [facility] Ranitidine 150 MG Oral Capsule 150 mg, 1 cap, Route: PO, Drug form: CAP, Daily, Dosing Weight 92.727, kg, Start date: 09/22/18 9:00:00 FRANCHISE SALES MANAGER, Duration: 30 day, Stop date: 10/21/18 9:00:00 CDT Inactive 09/22/2018 [facility] potassium chloride 20 mEq oral tablet, extended release 20 mEq, 1 tab, Route: PO, Drug form: ERTAB, Daily, Dosing Weight 92.727, kg, Start date: 09/22/18 9:00:00 FRANCHISE SALES MANAGER, Duration: 30 day, Stop date: 10/21/18 9:00:00 CDTNotes: (Same as: K-Dur 20) "Do Not Crush" Give with food and full glass of water For patients unable to swallow tablet, dissolve in one half glass of water. Allow about 2 minutes for the tablets to disintegrate. Stir before giving to prepare slurry and administer. Please exclude Patients with feeding tube less than 14 Syrian (Dobhoff, J-tube etc) and pediatric and patients. No Longer Active 09/22/2018 [facility] Lisinopril 20 mg, 1 tab, Route: PO, Drug form: TAB, BID, Dosing Weight 92.727, kg, Start date: 09/22/18 9:00:00 FRANCHISE SALES MANAGER, Duration: 30 day, Stop date: 10/21/18 21:00:00 CDTNotes: (Same as: Prinivil, Zestril) No Longer Active 09/22/2018 [facility] Isosorbide 60 mg, 2 tab, Route: PO, Drug form: ERTAB, QAM, Dosing Weight 92.727, kg, Start date: 09/22/18 9:00:00 FRANCHISE SALES MANAGER, Duration: 30 day, Stop date: 10/21/18 9:00:00 CDTNotes: (Same as:Imdur) "Do Not Crush" Take on empty stomach/ full glass of water. Do not crush No Longer Active 09/22/2018 [facility] Digoxin 0.25 MG Oral Tablet 0.25 mg, 1 tab, Route: PO, Drug form: TAB, Daily, Dosing Weight 92.727, kg, Start date: 09/22/18 9:00:00 FRANCHISE SALES MANAGER, Duration: 30 day, Stop date: 10/21/18 9:00:00 CDTNotes: Take on an Empty Stomach (Same as: Lanoxin) No Longer Active 09/22/2018 [facility] clopidogrel 75 mg, 1 tab, Route: PO, Drug form: TAB, Daily, Dosing Weight 92.727, kg, Start date: 09/22/18 9:00:00 FRANCHISE SALES MANAGER, Duration: 30 day, Stop date: 10/21/18 9:00:00 CDTNotes: (Same As: Plavix) No Longer Active 09/22/2018 [facility] Clonidine Hydrochloride 0.1 MG Oral Tablet 0.2 mg, 2 tab, Route: PO, Drug form: TAB, BID, Dosing Weight 92.727, kg, Start date: 09/22/18 9:00:00 FRANCHISE SALES MANAGER, Duration: 30 day, Stop date: 10/21/18 21:00:00 CDTNotes: (Same As: Catapres) No Longer Active 09/22/2018 [facility] carvedilol 25 mg, 2 tab, Route: PO, Drug form: TAB, BID, Dosing Weight 92.727, kg, Start date: 09/22/18 9:00:00 FRANCHISE SALES MANAGER, Duration: 30 day, Stop date: 10/21/18 21:00:00 CDTNotes: Give with food. (Same As: Coreg) No Longer Active 09/22/2018 [facility] Amlodipine 10 mg, 2 tab, Route: PO, Drug form: TAB, Daily, Dosing Weight 92.727, kg, Start date: 09/22/18 9:00:00 FRANCHISE SALES MANAGER, Duration: 30 day, Stop date: 10/21/18 9:00:00 CDTNotes: (Same as: Norvasc) No Longer Active 09/22/2018 [facility] famotidine 20 mg, 1 tab, Route: PO, Drug form: TAB, Q12H, Start date: 09/22/18 9:00:00 FRANCHISE SALES MANAGER, Duration: 30 day, Stop date: 10/21/18 21:00:00 CDTNotes: (Same as: Pepcid) No Longer Active 09/22/2018 [facility] Hydralazine Hydrochloride 50 MG Oral Tablet 50 mg, 1 tab, Route: PO, Drug form: TAB, Q8H, Dosing Weight 92.727, kg, Start date: 09/22/18 8:00:00 FRANCHISE SALES MANAGER, Duration: 30 day, Stop date: 10/22/18 0:00:00 CDTNotes: (Same as: Apresoline) May interfere w/enteral feedings Take With Food No Longer Active 09/22/2018 [facility] Furosemide 40 MG Oral Tablet 40 mg, 1 tab, Route: PO, Drug form: TAB, Daily, Dosing Weight 92.727, kg, Start date: 09/22/18 7:00:00 FRANCHISE SALES MANAGER, Duration: 30 day, Stop date: 10/21/18 7:00:00 CDTNotes: (Same as: Lasix) May cause GI upset. Give with food or milk. Inactive 09/22/2018 [facility] normal saline 0.9% IV 1,000 mL 1,000 mL, Rate: 125 ml/hr, Infuse over: 8 hr, Route: IV, Dosing Weight 92.727 kg, Total Volume: 1,000, Start date: 09/22/18 5:02:00 FRANCHISE SALES MANAGER, Duration: 30 day, Stop date: 10/22/18 5:01:00 CDT, 2.08, m2 Inactive 09/22/2018 [facility] Aspirin 81 MG Chewable Tablet 81 mg, 1 tab, Route: PO, Drug form: CHEWTAB, Q24H, Dosing Weight 92.727, kg, Start date: 09/22/18 1:00:00 FRANCHISE SALES MANAGER, Duration: 30 day, Stop date: 10/21/18 1:00:00 CDTNotes: Take with food. No Longer Active 09/22/2018 [facility] Nitroglycerin 0.4 MG Sublingual Tablet 0.4 mg, 1 tab, Route: SL, Drug form: TAB, Q5Min, Dosing Weight 92.727, kg, PRN Chest Pain, Start date: 09/22/18 0:08:00 FRANCHISE SALES MANAGER, Duration: 30 day, Stop date: 10/22/18 1:07:00 CDTNotes: (Same as:Nitroquick, Nitrostat) "Do Not Crush" Sublingual tablet No Longer Active 09/22/2018 [facility] Alprazolam 2 MG Oral Tablet [Xanax] 2 mg, 2 tab, Route: PO, Drug form: TAB, TID, Dosing Weight 92.727, kg, PRN Anxiety, Start date: 09/21/18 22:01:00 FRANCHISE SALES MANAGER, Duration: 30 day, Stop date: 10/21/18 22:00:00 CDTNotes: With food or milk (Same as: Xanax) No Longer Active 09/22/2018 [facility] Hydralazine 10 mg, 0.5 mL, Route: IV, Drug form: INJ, Q4H, Dosing Weight 92.727, kg, PRN Other -See Comment, Start date: 09/21/18 14:55:00 FRANCHISE SALES MANAGER, Duration: 30 day, Stop date: 10/21/18 14:54:00 CDT, SBP >160Notes: (Same as: Apresoline) Push over 5 minutes No Longer Active 09/21/2018 [facility] Morphine 2 mg, 0.5 mL, Route: IV, Drug form: SOLN, Q3H, Dosing Weight 92.727, kg, PRN Pain Score 4-6, Start date: 09/21/18 14:55:00 FRANCHISE SALES MANAGER, Duration: 30 day, Stop date: 10/21/18 14:54:00 CDTNotes: (Same as:MORPhine Sulfate) No Longer Active 09/21/2018 [facility] please update height, weight, and allergies please update height, weight, and allergies, 1, Drug form: MISC, Route: MISC, ONCE, 09/21/18 14:45:00 FRANCHISE SALES MANAGER, Stop date: 09/21/18 14:45:00 FRANCHISE SALES MANAGER Inactive 09/21/2018 [facility] clopidogrel 75 mg oral tablet 75 mg=1 tab, PO, Daily, 0 Refill(s) Active 09/21/2018 [facility] Hydralazine Hydrochloride 50 MG Oral Tablet 50 mg=1 tab, PO, Q8H, 0 Refill(s) Active 09/21/2018 [facility] sucralfate 1 g oral tablet 1 gm=1 tab, PO, QID, # 120 tab, 1 Refill(s) Active 09/21/2018 [facility] POLYETHYLENE GLYCOL 3350 142 MG/ML Oral Solution [Miralax] 17 gm, PO, Daily, # 255 gm, 0 Refill(s) Active 09/21/2018 [facility] Nitroglycerin 0.4 MG Sublingual Tablet 0.4 mg=1 tab, SL, Q5Min, PRN Chest pain, Give up to 3 doses. Call 911 if pain persists., # 100 tab, 0 Refill(s) Active 09/21/2018 [facility] Aspirin 81 MG Chewable Tablet 81 mg=1 tab, PO, Daily, tab, 0 Refill(s) Active 09/21/2018 [facility] Streptococcus pneumoniae serotype 1 capsular antigen diphtheria [id number] protein conjugate vaccine / Streptococcus pneumoniae serotype 14 capsular antigen diphtheria [id number] protein conjugate vaccine / Streptococcus pneumoniae serotype 18C capsular antigen d 0.5 mL, Route: IM, Drug Form: INJ, ONCALL, Start date: 09/21/18 14:22:49 FRANCHISE SALES MANAGER, Duration: 1 doses or timesNotes: Shake well prior to use (Same as: Prevnar 13) No Longer Active 09/21/2018 [facility] Dextrose 50% Syringe 25 gm, 50 mL, Route: IVP, Drug Form: INJ, Dosing Weight 89.091, kg, PRN, PRN Blood Glucose Results, Start date: 09/21/18 11:08:00 FRANCHISE SALES MANAGER, Duration: 30 day, Stop date: 10/21/18 12:07:00 CDT No Longer Active 09/21/2018 [facility] Glucagon 1 mg, Route: IM, Drug form: PDR/INJ, PRN, Dosing Weight 89.091, kg, PRN Blood Glucose Results, Start date: 09/21/18 11:08:00 FRANCHISE SALES MANAGER, Duration: 30 day, Stop date: 10/21/18 12:07:00 CDT No Longer Active 09/21/2018 [facility] azithromycin 500 mg oral tablet 500 mg=1 tab, PO, Daily, # 5 tab, 0 Refill(s) Active 03/09/2017 [facility] lisinopril 20 mg oral tablet 20 mg=1 tab, PO, Daily, # 30 tab, 0 Refill(s) Active 03/09/2017 [facility] isosorbide mononitrate 60 mg oral tablet, extended release 60 mg=1 tab, PO, QAM, # 30 tab, 0 Refill(s) Active 03/09/2017 [facility] digoxin 250 mcg (0.25 mg) oral tablet 0.25 mg, PO, Daily, # 30 tab, 0 Refill(s) Active 03/09/2017 [facility] Acetaminophen 325 MG / Hydrocodone Bitartrate 10 MG Oral Tablet 1 tab, PO, Q4H, PRN Pain, # 30 tab, 0 Refill(s) Active 03/09/2017 [facility] carisoprodol 350 mg oral tablet 350 mg=1 tab, PO, BID, # 30 tab, 0 Refill(s) Active 03/09/2017 [facility] amLODIPine 10 mg oral tablet 10 mg=1 tab, PO, Daily, # 90 tab, 0 Refill(s) Active 03/09/2017 [facility] carvedilol 25 mg oral tablet 25 mg=1 tab, PO, BID, # 180 tab, 0 Refill(s) Active 03/09/2017 [facility] losartan 100 mg oral tablet 100 mg=1 tab, PO, Daily, # 30 tab, 0 Refill(s) Active 03/09/2017 [facility] Furosemide 40 MG Oral Tablet 40 mg=1 tab, PO, BID, # 30 tab, 0 Refill(s) Active 03/09/2017 [facility] Ranitidine 150 MG Oral Capsule 150 mg=1 cap, PO, Daily, # 180 cap, 0 Refill(s) Active 03/09/2017 [facility] Clonidine Hydrochloride 0.1 MG Oral Tablet 0.1 mg=1 tab, PO, Daily, # 90 tab, 3 Refill(s) Active 03/09/2017 [facility] potassium chloride 20 mEq oral tablet, extended release 20 mEq=1 tab, PO, Daily, # 30 tab, 3 Refill(s) Active 03/09/2017 [facility] Alprazolam 2 MG Oral Tablet 2 mg=1 tab, PO, TID, PRN Anxiety, 0 Refill(s) Active 03/09/2017 [facility] spironolactone 50 mg oral tablet 50 mg=1 tab, PO, Daily, # 90 tab, 1 Refill(s) Active 03/09/2017 [facility] Docusate Sodium 100 MG Oral Tablet [DOK] 100 mg=1 tab, PO, Daily, 0 Refill(s) Active 03/09/2017 [facility] Allergies, Adverse Reactions, Alerts Substance Category Reaction Severity Reaction type Status Date Reported Comments Source atenolol Assertion Drug allergy Active [facility] Adderall Assertion Drug allergy Active [facility] Depakote Assertion Drug allergy Active [facility] RisperDAL Assertion Drug allergy Active [facility] Immunizations Immunization Date Given Site Status Last Updated Comments Source Results Order Name Results Value Reference Range Date Interpretation Comments Source CARDIAC ENZYMES BNP 358 pg/mL <=100 pg/mL 09/24/2018 [facility] CHEM PANEL Ammonia 37.0 umol/L <=45.0 uMol/L 09/24/2018 [facility] CHEM PANEL Lipase Lvl 103 unit/L 73 - 393 09/24/2018 [facility] CHEM PANEL A/G Ratio 0.9 0.7 - 1.6 09/24/2018 [facility] CHEM PANEL Bili Indirect 0.9 mg/dL 0.0 - 1.0 09/24/2018 [facility] CHEM PANEL Globulin 3.6 g/dL 2.7 - 4.2 09/24/2018 [facility] CHEM PANEL AST 9 unit/L 0 - 37 09/24/2018 [facility] CHEM PANEL ALT 13 unit/L 0 - 65 09/24/2018 [facility] CHEM PANEL Alk Phos 73 unit/L 39 - 136 09/24/2018 [facility] CHEM PANEL Bili Total 1.4 mg/dL 0.2 - 1.3 09/24/2018 [facility] CHEM PANEL Albumin Lvl 3.2 g/dL 3.5 - 5.0 09/24/2018 [facility] CHEM PANEL Bili Direct 0.5 mg/dL 0.0 - 0.3 09/24/2018 [facility] CHEM PANEL Total Protein 6.8 g/dL 6.4 - 8.4 09/24/2018 [facility] CHEM PANEL eGFR 41 mL/min/1.73m2 09/24/2018 Result [...] should be multiplied by the estimated BMI. [facility] CHEM PANEL Chloride Lvl 108 meq/L 95 - 109 09/24/2018 [facility] CHEM PANEL Potassium Lvl 3.2 meq/L 3.5 - 5.1 09/24/2018 [facility] CHEM PANEL Calcium Lvl 8.2 mg/dL 8.5 - 10.5 09/24/2018 [facility] CHEM PANEL CO2 27 meq/L 24 - 32 09/24/2018 [facility] CHEM PANEL Sodium Lvl 140 meq/L 135 - 145 09/24/2018 [facility] CHEM PANEL Creatinine Lvl 1.80 mg/dL 0.50 - 1.40 09/24/2018 [facility] CHEM PANEL Glucose Lvl 84 mg/dL 70 - 99 09/24/2018 [facility] CHEM PANEL BUN 16 mg/dL 7 - 22 09/24/2018 [facility] CHEM PANEL AGAP 8.2 meq/L 10.0 - 20.0 09/24/2018 [facility] HEMATOLOGY Hgb 10.6 g/dL 14.0 - 18.0 09/24/[address] [facility] Hct 33.5 % 42.0 - 54.0 09/24/[address] [facility] RBC 4.35 M/CMM 4.70 - 6.10 09/24/2018 [facility] HEMATOLOGY Platelet 236 K/CMM 133 - 450 09/24/2018 [facility] HEMATOLOGY MPV 8.1 fL 7.4 - 10.4 09/24/2018 [facility] HEMATOLOGY RDW 17.6 % 11.5 - 14.5 09/24/2018 [facility] HEMATOLOGY WBC 5.1 K/CMM 3.7 - 10.4 09/24/[address] [facility] MCHC 31.5 g/dL 32.0 - 36.0 09/24/2018 [facility] HEMATOLOGY MCV 77.1 fL 80.0 - 94.0 09/24/[address] [facility] MCH 24.3 pg 27.0 - 31.0 09/24/2018 [facility] HEMATOLOGY Eosinophils 4.0 % 0.0 - 4.0 09/24/2018 [facility] HEMATOLOGY Basophils 1.2 % 0.0 - 1.0 09/24/[address] [facility] Monocytes # 0.7 K/CMM 0.0 - 0.8 09/24/[address] [facility] Lymphocytes # 0.9 K/CMM 1.0 - 5.5 09/24/[address] [facility] Microcyte 1+ *ABN* (09/24/18 6:41 AM) None Seen 09/24/[address] [facility] Neutrophils # 3.2 K/CMM 1.5 - 8.1 09/24/[address] [facility] Basophils # 0.1 K/CMM 0.0 - 0.2 09/24/[address] [facility] Eosinophils # 0.2 K/CMM 0.0 - 0.5 09/24/[address] [facility] Segs 62.7 % 45.0 - 75.0 09/24/[address] [facility] Monocytes 13.5 % 2.0 - 12.0 09/24/[address] [facility] Lymphocytes 18.6 % 20.0 - 40.0 09/24/2018 [facility] CHEM PANEL Phosphorus 3.3 mg/dL 2.5 - 4.5 09/23/2018 [facility] CHEM PANEL Magnesium Lvl 1.6 mg/dL 1.8 - 2.4 09/23/2018 [facility] CHEM PANEL Amylase Lvl 53 unit/L 25 - 115 09/23/2018 [facility] CHEM PANEL Vitamin D, 25-OH, Total 22.7 ng/mL 30.0 - 100.0 09/23/2018 [facility] CHEM PANEL Uric Acid 7.2 mg/dL 3.8 - 8.0 09/23/2018 [facility] ELECTROLYTES Sodium Lvl 138 meq/L 135 - 145 09/23/2018 [facility] ELECTROLYTES eGFR 48 mL/min/1.73m2 09/23/2018 Result Comment: [...] should be multiplied by the estimated BMI. [facility] ELECTROLYTES Chloride Lvl 106 meq/L 95 - 109 09/23/2018 [facility] ELECTROLYTES Potassium Lvl 3.3 meq/L 3.5 - 5.1 09/23/2018 [facility] ELECTROLYTES CO2 26 meq/L 24 - 32 09/23/2018 [facility] ELECTROLYTES Calcium Lvl 8.5 mg/dL 8.5 - 10.5 09/23/2018 [facility] ELECTROLYTES AGAP 9.3 meq/L 10.0 - 20.0 09/23/2018 [facility] ELECTROLYTES Glucose Lvl 118 mg/dL 70 - 99 09/23/2018 [facility] ELECTROLYTES Creatinine Lvl 1.56 mg/dL 0.50 - 1.40 09/23/2018 [facility] ELECTROLYTES BUN 17 mg/dL 7 - 22 09/23/2018 [facility] HEMATOLOGY Sed Rate 15 mm/h 0 - 15 09/23/2018 [facility] IMMUNOLOGY Homocyst Tot 12.2 umol/L 3.7 - 13.9 09/23/2018 [facility] LIPIDS HDL 32 mg/dL >=61 mg/dL 09/23/2018 [facility] LIPIDS Trig 67 mg/dL <=149 mg/dL 09/23/2018 [facility] LIPIDS Chol 100 mg/dL <=199 mg/dL 09/23/2018 [facility] LIPIDS VLDL 13 09/23/2018 [facility] LIPIDS LDL (Calculated) 55 mg/dL <=99 mg/dL 09/23/2018 [facility] LIPIDS CHD Risk 3.12 4.00 - 7.30 09/23/2018 [facility] SPECIAL CHEMISTRY Hgb A1C 5.9 % <=5.6 % 09/23/2018 [facility] URINE AND STOOL UA WBC 0 /HPF 0 - 5 09/22/2018 [facility] URINE AND STOOL UA Sq Epi None Seen (09/22/18 5:33 PM) Few 09/22/2018 [facility] URINE AND STOOL UA Bacteria None Seen (09/22/18 5:33 PM) None Seen 09/22/2018 [facility] URINE AND STOOL UA RBC 0 /HPF 0 - 2 09/22/2018 [facility] URINE AND STOOL UA Leuk Est Negative (09/22/18 5:33 PM) Negative 09/22/2018 [facility] URINE AND STOOL UA Nitrite Negative (09/22/18 5:33 PM) Negative 09/22/2018 [facility] URINE AND STOOL UA Urobilinogen <=1.0 mg/dL 0.1 - 1.0 09/22/2018 [facility] URINE AND STOOL UA Bili Negative *NA* (09/22/18 5:33 PM) Negative 09/22/2018 [facility] URINE AND STOOL UA Blood Negative (09/22/18 5:33 PM) Negative 09/22/2018 [facility] URINE AND STOOL UA Ketones Negative *NA* (09/22/18 5:33 PM) Negative 09/22/2018 [facility] URINE AND STOOL UA pH 6.0 5.0 - 8.0 09/22/2018 [facility] URINE AND STOOL UA Spec Grav 1.013 <=1.030 09/22/2018 [facility] URINE AND STOOL UA Protein Negative (09/22/18 5:33 PM) Negative 09/22/2018 [facility] URINE AND STOOL UA Glucose Negative *NA* (09/22/18 5:33 PM) Negative 09/22/2018 [facility] URINE AND STOOL UA Color Ltyellow 09/22/2018 [facility] URINE AND STOOL UA Turbidity Clear (09/22/18 5:33 PM) Clear 09/22/2018 [facility] Chest 1view DX Chest 1view DX Clinical [...] Santana Morrissey MD 09/23/18 08:24 FINAL REPORT [facility] CARDIAC ENZYMES BNP 1413 pg/mL <=100 pg/mL 09/22/2018 [facility] [employer] [facility] [employer] [place] Patient Name: MARYA MILLAN : 1960; Age: 58 years y/o Male MR: [id number] Study: Gallbladder scan [employer] [place] 09/22/2018 18:48 FRANCHISE SALES MANAGER Ordering Physician: Neftaly Cochran MD Comparison: None [...] of biliary stasis or obstructive pattern. SL: [id number] 09/22/2018 - - Read by: Carroll Villalobos MD Dictated Date/time: 09/23/18 12:43 Electronically Signed by: Carroll Villalobos MD 09/23/18 13:01 FINAL REPORT [facility] CHEM PANEL eGFR 48 mL/min/1.73m2 09/22/2018 Result [...] should be multiplied by the estimated BMI. [facility] CHEM PANEL Alk Phos 83 unit/L 39 - 136 09/22/2018 [facility] CHEM PANEL AST 8 unit/L 0 - 37 09/22/2018 [facility] CHEM PANEL A/G Ratio 0.9 0.7 - 1.6 09/22/2018 [facility] CHEM PANEL Bili Total 0.6 mg/dL 0.2 - 1.3 09/22/2018 [facility] CHEM PANEL Globulin 3.6 g/dL 2.7 - 4.2 09/22/2018 [facility] CHEM PANEL B/C Ratio 17 6 - 25 09/22/2018 [facility] CHEM PANEL AGAP 7.4 meq/L 10.0 - 20.0 09/22/2018 [facility] CHEM PANEL ALT 15 unit/L 0 - 65 09/22/2018 [facility] CHEM PANEL Calcium Lvl 8.1 mg/dL 8.5 - 10.5 09/22/2018 [facility] CHEM PANEL Albumin Lvl 3.3 g/dL 3.5 - 5.0 09/22/2018 [facility] CHEM PANEL Total Protein 6.9 g/dL 6.4 - 8.4 09/22/2018 [facility] CHEM PANEL BUN 26 mg/dL 7 - 22 09/22/2018 [facility] CHEM PANEL Chloride Lvl 108 meq/L 95 - 109 09/22/2018 [facility] CHEM PANEL CO2 27 meq/L 24 - 32 09/22/2018 [facility] CHEM PANEL Sodium Lvl 139 meq/L 135 - 145 09/22/2018 [facility] CHEM PANEL Creatinine Lvl 1.56 mg/dL 0.50 - 1.40 09/22/2018 [facility] CHEM PANEL Glucose Lvl 88 mg/dL 70 - 99 09/22/2018 [facility] CHEM PANEL Potassium Lvl 3.4 meq/L 3.5 - 5.1 09/22/[address] [facility] PT 16.6 s 12.0 - 14.7 09/22/[address] [facility] INR 1.37 0.85 - 1.17 09/22/[address] [facility] Platelet 189 K/CMM 133 - 450 09/22/[address] [facility] MPV 8.8 fL 7.4 - 10.4 09/22/[address] [facility] RDW 17.7 % 11.5 - 14.5 09/22/[address] [facility] MCH 24.6 pg 27.0 - 31.0 09/22/[address] [facility] MCHC 31.6 g/dL 32.0 - 36.0 09/22/[address] [facility] Hct 33.6 % 42.0 - 54.0 09/22/[address] [facility] MCV 77.9 fL 80.0 - 94.0 09/22/[address] [facility] WBC 6.9 K/CMM 3.7 - 10.4 09/22/[address] [facility] RBC 4.31 M/CMM 4.70 - 6.10 09/22/[address] [facility] Hgb 10.6 g/dL 14.0 - 18.0 09/22/[address] [facility] Eosinophils # 0.1 K/CMM 0.0 - 0.5 09/22/[address] [facility] Lymphocytes # 1.2 K/CMM 1.0 - 5.5 09/22/[address] [facility] Neutrophils # 4.7 K/CMM 1.5 - 8.1 09/22/[address] [facility] Monocytes # 0.8 K/CMM 0.0 - 0.8 09/22/[address] [facility] Basophils 1.1 % 0.0 - 1.0 09/22/[address] [facility] Lymphocytes 17.3 % 20.0 - 40.0 09/22/[address] [facility] Eosinophils 1.8 % 0.0 - 4.0 09/22/[address] [facility] Monocytes 11.6 % 2.0 - 12.0 09/22/[address] [facility] Segs 68.2 % 45.0 - 75.0 09/22/[address] [facility] Basophils # 0.1 K/CMM 0.0 - 0.2 09/22/[address] [facility] Microcyte 1+ *ABN* (09/22/18 6:48 AM) None Seen 09/22/2018 [facility] Abdomen RUQ US Abdomen RUQ US Clinical [...] enlarged in size 3. Otherwise unremarkable SL: [id number] 09/22/2018 - - Read by: Ricardo Canela MD Dictated Date/time: 09/22/18 14:10 Electronically Signed by: Ricardo Canela MD 09/22/18 14:13 FINAL REPORT [facility] CHEM PANEL B/C Ratio 19 6 - 25 09/22/2018 [facility] CHEM PANEL Globulin 3.9 g/dL 2.7 - 4.2 09/22/2018 [facility] CHEM PANEL A/G Ratio 0.9 0.7 - 1.6 09/22/2018 [facility] CHEM PANEL Bili Total 0.4 mg/dL 0.2 - 1.3 09/22/2018 [facility] CHEM PANEL Albumin Lvl 3.6 g/dL 3.5 - 5.0 09/22/2018 [facility] CHEM PANEL Alk Phos 90 unit/L 39 - 136 09/22/2018 [facility] CHEM PANEL Total Protein 7.5 g/dL 6.4 - 8.4 09/22/2018 [facility] CHEM PANEL ALT 19 unit/L 0 - 65 09/22/2018 [facility] CHEM PANEL AST 13 unit/L 0 - 37 09/22/2018 [facility] HEMATOLOGY Microcyte 1+ *ABN* (09/21/18 9:25 PM) None Seen 09/22/[address] [facility] Lymphocytes # 1.9 K/CMM 1.0 - 5.5 09/22/[address] [facility] Basophils # 0.1 K/CMM 0.0 - 0.2 09/22/[address] [facility] Eosinophils # 0.2 K/CMM 0.0 - 0.5 09/22/[address] [facility] Monocytes # 0.9 K/CMM 0.0 - 0.8 09/22/[address] [facility] Monocytes 11.2 % 2.0 - 12.0 09/22/[address] [facility] Eosinophils 1.9 % 0.0 - 4.0 09/22/[address] [facility] Segs 61.9 % 45.0 - 75.0 09/22/[address] [facility] Neutrophils # 5.0 K/CMM 1.5 - 8.1 09/22/[address] [facility] Lymphocytes 24.0 % 20.0 - 40.0 09/22/[address] [facility] Basophils 1.0 % 0.0 - 1.0 09/22/[address] [facility] Hgb 11.5 g/dL 14.0 - 18.0 09/22/[address] [facility] RBC 4.71 M/CMM 4.70 - 6.10 09/22/[address] [facility] WBC 8.0 K/CMM 3.7 - 10.4 09/22/[address] [facility] MCV 77.4 fL 80.0 - 94.0 09/22/[address] [facility] Hct 36.5 % 42.0 - 54.0 09/22/[address] [facility] MCHC 31.6 g/dL 32.0 - 36.0 09/22/[address] [facility] MCH 24.5 pg 27.0 - 31.0 09/22/[address] [facility] RDW 17.5 % 11.5 - 14.5 09/22/[address] [facility] MPV 8.8 fL 7.4 - 10.4 09/22/[address] [facility] Platelet 212 K/CMM 133 - 450 09/22/2018 [facility] Abd/Pelvis Liver Protocol w IV/Abd wo CT [...] The appendix is not included in the [id number]. PERITONEUM: A small amount of abdominal free [...] pleural effusion. 4. Partially visualized cardiomegaly. SL: [id number] 09/21/2018 - - Read by: Tobi Martinez MD Dictated Date/time: 09/22/18 00:42 Electronically Signed by: Tobi Martinez MD 09/22/18 01:01 FINAL REPORT [facility] ANEMIA STUDY Iron 25 ug/dl 45 - 160 09/21/2018 [facility] ANEMIA STUDY TIBC 207 ug/dl 228 - 428 09/21/2018 [facility] ANEMIA STUDY UIBC 182 ug/dl 110 - 370 09/21/2018 [facility] ANEMIA STUDY % Satur Fe 12 % 12 - 57 09/21/2018 [facility] ANEMIA STUDY Ferritin Lvl 18 ng/mL 22 - 275 09/21/2018 [facility] A-1-AT 166 mg/dL 83 - 199 09/21/2018 [facility] Hep A Tot Negative *NA* (09/21/18 3:10 PM) Negative 09/21/2018 [facility] SMA Screen Negative (09/21/18 3:10 PM) Negative 09/21/2018 [facility] Hep Bs Ag Negative *NA* (09/21/18 3:10 PM) Negative 09/21/2018 [facility] Hep B Core Ab Negative *NA* (09/21/18 3:10 PM) Negative 09/21/2018 [facility] CERULOPLASMIN 33 mg/dL 20 - 60 09/21/2018 [facility] AMA Ab Scr Negative (09/21/18 3:10 PM) Negative 09/21/2018 [facility] REY Negative (09/21/18 3:10 PM) Negative 09/21/2018 [facility] TUMOR MARKERS AFP 1.3 ng/mL 0.0 - 11.0 09/21/2018 [facility] Chest 2 views DX Chest 2 views DX EXAM: PA AND LATERAL CHEST X RAY DATE:- 06/23/2018 10:29 AM [employer] . ORDERING PHYSICIAN: Santana Snell DO CLINICAL [...] by: Gladis Napoles 03/30/17 15:04 FINAL REPORT [facility] Vital Signs Vital Sign Value Date Comments Source Systolic (mm Hg) 117 09/24/2018 [facility] Diastolic (mm Hg) 63 09/24/2018 [facility] Respitory Rate 20 09/24/2018 [facility] Temperature Oral (F) 98.3 F 09/24/2018 [facility] Heart Rate 60 09/24/2018 [facility] Heart Rate 67 09/24/2018 [facility] Temperature Oral (F) 98.4 F 09/24/2018 [facility] Systolic (mm Hg) 132 09/24/2018 [facility] Diastolic (mm Hg) 72 09/24/2018 [facility] Respitory Rate 18 09/24/2018 [facility] Respitory Rate 18 09/24/2018 [facility] Systolic (mm Hg) 114 09/24/2018 [facility] Diastolic (mm Hg) 63 09/24/2018 [facility] Temperature Oral (F) 98.5 F 09/24/2018 [facility] Heart Rate 59 09/24/2018 [facility] Weight 92.727 09/21/2018 [facility] BMI Calculated 35.09 09/21/2018 [facility] Height 162.56 cm 09/21/2018 [facility] Temperature Oral (F) 97.6 F 03/09/2017 [facility] Respitory Rate 18 03/09/2017 [facility] Systolic (mm Hg) 170 03/09/2017 [facility] Diastolic (mm Hg) 110 03/09/2017 [facility] Heart Rate 70 03/09/2017 [facility] BMI Calculated 33.71 03/09/2017 [facility] Weight 89.091 03/09/2017 [facility] Height 162.56 cm 03/09/2017 [facility] Encounters Location Location Details Encounter Type Encounter Number Reason For Visit Attending Provider ADM Date DC Date Status Source [facility] Outpatient [id number] Israel Bazzi 03/09/2017 03/10/2017 [id number] Israel Bazzi 03/30/2017 03/31/2017 [facility] [id number] Israel Bazzi 09/07/2017 09/07/2017 [facility] Outpatient [id number] NEFTALY COCHRAN 09/22/2018 Active [facility] Inpatient [id number] Miguelina Still 09/23/2018 09/24/2018 [facility] Procedures Procedure Code Date Perfomer Comments Source Pacemaker care [id number] [facility]
[2018-12-26] MEDS ORDERED: ASPIRIN 81 MG CHEW TAB PO ONE (14:45)
[2018-12-26 15:22] LABS: BASOPHILS # (AUTO) 0.1 (0.0-0.1); BASOPHILS % 1.2 % (0.0-1.0); EOSINOPHILS # (AUTO) 0.1 (0.0-0.4); EOSINOPHILS % 1.2 % (0.0-6.0); HEMATOCRIT 40.3 % (38.2-49.6); HEMOGLOBIN 12.3 g/dL (14.0-18.0); LYMPHOCYTES # (AUTO) 1.1 (1.0-3.2); LYMPHOCYTES % 16.5 % (18.0-39.1); MEAN CORPUSCULAR HEMOGLOBIN 24.2 pg (28-32); MEAN CORPUSCULAR HGB CONC 30.5 g/dL (31-35); MEAN CORPUSCULAR VOLUME 79.2 fL (81-99); MONOCYTES # (AUTO) 0.8 (0.2-0.8); MONOCYTES % 11.1 % (4.4-11.3); NEUTROPHILS # (AUTO) 4.7 (2.1-6.9); NEUTROPHILS % 69.7 % (38.7-80.0); PLATELET COUNT 221 x10e3/uL (140-360); RED BLOOD COUNT 5.09 x10e6/uL (4.3-5.7)
[2018-12-26] MEDS ORDERED: HYDRALAZINE HCL 20 MG/ML VIAL IV NR (15:30)
[2018-12-26 15:33] LABS: INR 1.31; PROTHROMBIN TIME 16.9 seconds (11.9-14.5)
[2018-12-26 15:34] LABS: PARTIAL THROMBOPLASTIN TIME 37.2 seconds (23.8-35.5)
[2018-12-26 15:40] LABS: CLARITY,URINE CLOUDY (CLEAR); COLOR,URINE YELLOW (YELLOW)
[2018-12-26 15:41] LABS: BILIRUBIN,URINE NEGATIVE (NEGATIVE); EPITHELIAL CELLS,URINE RARE /LPF; KETONES,URINE NEGATIVE (NEGATIVE); LEUKOCYTE ESTERASE ,URINE NEGATIVE (NEGATIVE); NITRITE,URINE NEGATIVE (NEGATIVE); PROTEIN,URINE DIPSTICK 2+ (NEGATIVE); TRANSITIONAL EPI CELLS,URINE RARE; URINE UROBILINOGEN 0.2 mg/dL (0.2 - 1)
[2018-12-26 15:42] LABS: WBC,URINE (MAN) 0-5 /HPF (0-5)
[2018-12-26 15:45] LABS: ALBUMIN 3.9 g/dL (3.5-5.0); ALBUMIN/GLOBULIN RATIO 1.1 (0.8-2.0); CALCIUM 9.6 mg/dL (8.4-10.2); CREATININE, SERUM 1.67 mg/dL (0.72-1.25)
[2018-12-26] MEDS ORDERED: ONDANSETRON HCL INJ 2MG/ML 2ML 2 MG/ML VIAL IV NR (16:00)
[2018-12-26] MEDS ORDERED: MORPHINE SULFATE INJ 4 MG/ML INJ 1ML IV NR (16:00)
[2018-12-26 16:04] LABS: CREATINE KINASE MB 1.1 ng/mL (0-5.0); THYROID STIMULATING HORMONE 3.107 uIU/mL (0.350-4.940)
--- NOTE | 2018-12-26 17:44 | Diagnostic Imaging Report ---
EXAM: Abdomen 2 Views INDICATION: ^abd pain ^[id number] ^[id number] COMPARISON: CT abdomen and pelvis 10/22/2018 FINDINGS: Lines/tubes: Partially visualized ICD leads overlying the right ventricle. Mild of stool in the colon. No dilated loops of small bowel. No renal calculi. No abnormal soft tissue masses. Mild degenerative changes in the lumbar spine and pelvis. IMPRESSION: Unremarkable bowel gas pattern. Signed by: Dr. Angélica Ta M.D. on 12/26/2018 5:41 PM
--- NOTE | 2018-12-26 17:45 | Diagnostic Imaging Report ---
EXAMINATION: CHEST SINGLE (NOT PORTABLE) INDICATION: ^ERMD ORDER ^[id number] ^[id number] ^Y COMPARISON: Chest radiograph 10/23/2018 FINDINGS: AP view TUBES and LINES: Stable 3-lead ICD. LUNGS: Lungs are well inflated. Bilateral central bony vascular congestion is unchanged. No new consolidations. PLEURA: No pleural effusion or pneumothorax. HEART AND MEDIASTINUM: Stable marked enlargement of the cardiac silhouette. BONES AND SOFT TISSUES: Intact median sternotomy wires. Soft tissues are unremarkable. UPPER ABDOMEN: No free air under the diaphragm. IMPRESSION: Central pulmonary vascular congestion, unchanged. Signed by: Dr. Angélica Ta M.D. on 12/26/2018 5:42 PM
[2018-12-26 18:45] VITALS: BP 151/106
== END 2018-12-26 18:51 | disposition home or self-care (01) ==
LOC: ER 14:36
DX: R10.12 Left upper quadrant pain (principal); R10.13 Epigastric pain; R10.33 Periumbilical pain; R10.32 Left lower quadrant pain; I10 Essential (primary) hypertension; J45.909 Unspecified asthma, uncomplicated; Z95.810 Presence of automatic (implantable) cardiac defibrillator
CPT/HCPCS: 36415; 71045; 74018; 80053; 81001; 82550; 82553; 83605; 83880; 84443; 84484; 85025; 85610; 85730; 87086; 93005; 99284; J0360; J2270; J2405

== ENCOUNTER 2019-01-07 15:06 | Observation (INO) | payer OTHER ==
[~2019-01-07] VITALS: Ht 162.6 cm; Wt 93.9 kg
[2019-01-07] MEDS ORDERED: ASPIRIN 81 MG CHEW TAB PO ONE ×2 (15:45→17:45)
[2019-01-07 15:59] LABS: BASOPHILS # (AUTO) 0.1 (0.0-0.1); BASOPHILS % 1.1 % (0.0-1.0); EOSINOPHILS # (AUTO) 0.1 (0.0-0.4); EOSINOPHILS % 2.8 % (0.0-6.0); HEMATOCRIT 37.2 % (38.2-49.6); HEMOGLOBIN 11.3 g/dL (14.0-18.0); LYMPHOCYTES # (AUTO) 0.9 (1.0-3.2); LYMPHOCYTES % 21.6 % (18.0-39.1); MEAN CORPUSCULAR HEMOGLOBIN 24.3 pg (28-32); MEAN CORPUSCULAR HGB CONC 30.4 g/dL (31-35); MONOCYTES # (AUTO) 0.5 (0.2-0.8); MONOCYTES % 12.4 % (4.4-11.3); NEUTROPHILS # (AUTO) 2.7 (2.1-6.9); NEUTROPHILS % 61.9 % (38.7-80.0); PLATELET COUNT 196 x10e3/uL (140-360); RED BLOOD COUNT 4.65 x10e6/uL (4.3-5.7); RED CELL DISTRIBUTION WIDTH 18.4 % (11.7-14.4)
[2019-01-07 16:18] LABS: ALBUMIN 3.5 g/dL (3.5-5.0); ANION GAP 10.6 mmol/L (8-16); CALCIUM 9.1 mg/dL (8.4-10.2); CREATININE, SERUM 2.19 mg/dL (0.72-1.25); POTASSIUM 3.6 mmol/L (3.5-5.1)
--- NOTE | 2019-01-07 16:26 | Diagnostic Imaging Report ---
Examination: Single AP view of the chest. COMPARISON: 12/26/2018 INDICATION: Shortness of breath DISCUSSION: Unchanged left subclavian approach implantable cardiac device. Median sternotomy wires. Stable marked enlargement of the cardiac silhouette with prominence of the central pulmonary vasculature similar to that noted on 12/26/2018 when accounting for differences in technique. No new consolidations. No acute osseous abnormality. IMPRESSION: Marked enlargement of the cardiac silhouette and pulmonary venous congestion similar in degree to that noted on 12/26/2018. Signed by: Dr. Santana Watt M.D. on 01/07/2019 4:22 PM
[2019-01-07] MEDS ORDERED: FUROSEMIDE INJ 10 MG/ML 4 ML VIAL IV ONE (17:00)
[2019-01-07] MEDS ORDERED: ONDANSETRON HCL INJ 2MG/ML 2ML 2 MG/ML VIAL IV PRN (17:45)
[2019-01-07] MEDS ORDERED: SODIUM CHLORIDE FLUSH 10 ML SYR INJ PRN (17:45)
[2019-01-07] MEDS ORDERED: NITROGLYCERIN 2% OINT 1 GM PKT TOP ONE (17:45)
[2019-01-07] MEDS ORDERED: FUROSEMIDE INJ 10 MG/ML 2 ML VIAL IV ONE (17:45)
[2019-01-07] MEDS ORDERED: ALPRAZOLAM2 MG PO (19:31)
[2019-01-07] MEDS ORDERED: FLOMAX0.4 MG PO (19:31)
[2019-01-07] MEDS ORDERED: LACTULOSE10 GM/151 PO (19:31)
[2019-01-07] MEDS ORDERED: MOVANTIK PO (19:31)
[2019-01-07 19:50] VITALS: BP 140/95
[2019-01-07 20:05] VITALS: BP 140/95
[2019-01-07 20:07] VITALS: BP 140/95
[2019-01-07] MEDS: FUROSEMIDE INJ 10 MG/ML 4 ML VIAL IV SCH (20:24)
[2019-01-07] MEDS ORDERED: NON-FORMULARY MEDICATION (Alprazolam 2 MG) PO PRN (23:30)
[2019-01-07 23:39] LABS: CREATINE KINASE MB 0.9 ng/mL (0-5.0)
[2019-01-08] VITALS (7 sets, daily range): BP systolic 138–155; BP diastolic 105–110
[2019-01-08] MEDS ORDERED: ALPRAZOLAM 1 MG TAB PO PRN (01:15)
--- NOTE | 2019-01-08 02:17 | History and Physical ---
I am taking calls for Dr. Eric Lechuga for this weekend. This patient Tee Daily is referred by Dr. Snell in the emergency room at [facility] and usually Dr. Lechuga admit Dr. Snell' patient and that is reason the patient is admit in my name. However, I came to know after admission the patient is a [facility] patient, so I have requested the nurse to transfer the patient to Dr. Fowler, who is a primary [facility] doctor and also I requested Dr. Carrillo Marcus, the perforator as the patient has a history of possible COPD and asthma also. Until they take over this patient, I will be taking care of Mr. Rai Daily. The patient comes here for some abdominal discomfort and the ER physician already has seen the patient at [facility] and admitted with the following diagnoses: 1. Acute on chronic systolic congestive heart failure. 2. Coronary artery disease, status bypass surgery May last year at [facility]. 3. AICD implantation at [facility] in May 2018. 4. Hypertension. 5. History of possible COPD or asthma and the patient is on multiple medications all are being in the reconciliation section and I requested nurse to reconcile all the medications. The patient also received IV Lasix. At this time, EKG shows a pacing and sensing normally and troponin is negative. BNP around 2000 pg/mL. The patient has got renal failure with creatinine about 2.2 and GFR is about 30 mL/minute. 6. At this time, the patient comes in with abdominal discomfort mainly gas, has not passed bowel movement. Bowel sounds are present and the patient already seen a getter operator maybe few weeks ago. At this time, the patient is quite stable except the symptoms of congestive heart failure, which is being treated with Lasix and all other medications. 7. The patient will be taken over by Dr. Fowler and possibly Dr. Carrillo Marcus will see in the morning. For the meantime until other doctors takeover, I will be following the patient closely. 8. The patient at this time is stable and good condition. Other systems, neurologically normal and the patient main complaints of abdominal discomfort mainly which he had this for a few weeks to month and also a shortness of breath. Palur V Titus, MD PVB/DEMETRIAL /[id number]
[2019-01-08 05:36] LABS: BASOPHILS # (AUTO) 0.1 (0.0-0.1); BASOPHILS % 1.3 % (0.0-1.0); EOSINOPHILS # (AUTO) 0.1 (0.0-0.4); EOSINOPHILS % 2.6 % (0.0-6.0); HEMATOCRIT 35.7 % (38.2-49.6); HEMOGLOBIN 10.7 g/dL (14.0-18.0); LYMPHOCYTES # (AUTO) 0.9 (1.0-3.2); LYMPHOCYTES % 19.5 % (18.0-39.1); MONOCYTES # (AUTO) 0.7 (0.2-0.8); NEUTROPHILS # (AUTO) 2.8 (2.1-6.9); NEUTROPHILS % 60.4 % (38.7-80.0); PLATELET COUNT 186 x10e3/uL (140-360); RED BLOOD COUNT 4.46 x10e6/uL (4.3-5.7); RED CELL DISTRIBUTION WIDTH 18.4 % (11.7-14.4)
[2019-01-08 05:54] LABS: ANION GAP 11.5 mmol/L (8-16); CREATININE, SERUM 2.24 mg/dL (0.72-1.25); POTASSIUM 3.5 mmol/L (3.5-5.1)
[2019-01-08 06:14] LABS: CREATINE KINASE MB 0.8 ng/mL (0-5.0)
--- NOTE | 2019-01-08 06:55 | Diagnostic Imaging Report ---
EXAMINATION: CHEST SINGLE (PORTABLE) COMPARISON: Chest x-ray 01/07/2019 INDICATION: ^sob DISCUSSION: Frontal view of the chest obtained at 0600 hours. HEART AND MEDIASTINUM: Stable cardiomegaly LINES: Pacer/defibrillator wires are stable LUNGS/PLEURA: Low lung volumes. Retrocardiac airspace opacity is stable. Mild pulmonary vascular prominence is stable. No large effusions. No pneumothorax. BONES AND SOFT TISSUES: No focal osseous lesion. The soft tissues are normal. IMPRESSION: Stable retrocardiac airspace opacity suggestive of atelectasis or infiltrate. Stable cardiomegaly and pulmonary vascular congestion. Signed by: Dr. Omaira Wagoner MD on 01/08/2019 6:52 AM
--- NOTE | 2019-01-08 07:00 | NUR ---
Walking rounds done and report received from night nurse. Patient is awake, alertx3, and sitting up in bed in NAD. Patient continues to c/o of some SOB that is alleviated by patient wearing Oxygen per patient. He also states he gets anxious thinking he can't breath. Patient reassured. POC discussed. He was instructed to call for assistance as needed and verbalized understanding. Tele #3, AV paced at 72. Call padron within reach.
[2019-01-08] MEDS: DICYCLOMINE HCL 20 MG TAB PO SCH ×4 (07:30→20:45)
[2019-01-08] MEDS: [UNRECOGNIZED DRUG - OTHER] PO SCH (08:26)
[2019-01-08] MEDS: ASPIRIN 81 MG ENTERIC COATED PO SCH (08:26)
[2019-01-08] MEDS: FUROSEMIDE INJ 10 MG/ML 4 ML VIAL IV SCH ×2 (08:26→13:15)
[2019-01-08] MEDS: LACTULOSE SYRUP 20 GM/30 ML UDC PO SCH ×2 (08:27→16:19)
[2019-01-08] MEDS: POTASSIUM CHLORIDE 10MEQ EA PO SCH (08:27)
[2019-01-08] MEDS: FAMOTIDINE 20 MG TAB PO SCH (08:27)
[2019-01-08] MEDS: SENNA-S TABLET PO SCH ×2 (08:27→16:19)
[2019-01-08] MEDS: CLONIDINE HCL 0.2 MG TAB PO SCH ×2 (08:27→16:19)
[2019-01-08] MEDS: TAMSULOSIN HCL 0.4 MG CAP PO SCH (08:27)
[2019-01-08] MEDS ORDERED: MOVANTIK 25 MG PO SCH (09:00)
[2019-01-08] MEDS ORDERED: RANITIDINE HCL 50 MG PO SCH (09:00)
[2019-01-08] MEDS ORDERED: FUROSEMIDE 40 MG TAB PO SCH (09:00)
[2019-01-08] MEDS ORDERED: NON-FORMULARY MEDICATION (Aspirin (Ecotrin) 81 MG) PO SCH (09:00)
[2019-01-08] MEDS ORDERED: NON-FORMULARY MEDICATION (Lactulose 10 GM) PO SCH (09:00)
--- NOTE | 2019-01-08 09:16 | NUR ---
Per imaging tech EF is less than 10% imaging tech notified Dr. Qureshi and Dr. Fowler rounding and notified. Per Dr. Fowler, he is familiar with patient. No new orders at this time.
[2019-01-08] MEDS ORDERED: METOLAZONE 5 MG TAB PO NR (09:30)
[2019-01-08] MEDS ORDERED: POTASSIUM CHLORIDE 10MEQ EA PO NR (09:30)
--- NOTE | 2019-01-08 10:30 | NUR ---
Patient educated to saving all urine in urinal for strict I&Os
[2019-01-08] MEDS: METOLAZONE 5 MG TAB PO SCH (11:57)
[2019-01-08] MEDS ORDERED: ALBUTEROL SULFATE HFA 8GM INHALATION AEROSOL INH PRN (12:30)
[2019-01-08 14:05] LABS: CREATINE KINASE MB 0.9 ng/mL (0-5.0)
[2019-01-08] MEDS: LISINOPRIL 10 MG TAB PO SCH (16:19)
--- NOTE | 2019-01-08 17:00 | History and Physical ---
The patient was admitted to Dr. Qureshi by on-call. The patient has . PRIMARY CARE PHYSICIAN: Dr. Angel Snell. ATTENDING DOCTOR: Dr. Daniele Fowler, switch from Dr. Qureshi. CHIEF COMPLAINT: Acute on chronic systolic dysfunction, congestive heart failure. HISTORY OF PRESENT ILLNESS: This is a 58-year-old male, well known to the service. The patient has advanced stage cardiomyopathy with ejection fraction less than 20%. The patient has recurrent congestive heart failure exacerbation. He had ICD in place. The patient has history of coronary artery bypass graft and multiple stent. The patient is now admitted for congestive heart failure exacerbation. PAST MEDICAL HISTORY: Coronary artery disease with previous bypass graft surgery with multiple coronary stents, ICD, congestive heart failure, ejection fraction less than 20%, recurrent acute exacerbation on chronic congestive heart failure, systolic. Chronic umbilical hernia, non-incarceration. Major depression, anxiety disorder, chronic constipation, dyslipidemia, hypertension, chronic pain. SOCIAL HISTORY: The patient does smoke marijuana. No cigarette smoking now, but quit many years ago. No alcohol, no other recreational drug use. ALLERGIES: TO AMPHETAMINE, DEPAKOTE AND RISPERIDONE. HOME MEDICATIONS: List is reviewed. REVIEW OF SYSTEMS: Shortness of breath, swelling of the lower extremities. PHYSICAL EXAMINATION: VITAL SIGNS: Temperature is 98, blood pressure 152/105, pulse rate 71, respirations 18. GENERAL: The patient is in no acute distress. He is awake. HEENT: Normocephalic, atraumatic. Anicteric. NECK: Supple grossly. PULMONARY: Diminished breath sounds at bases with rales. CARDIOVASCULAR: S1, S2. Regular rate and rhythm. ICD. ABDOMEN: Soft. Ascites with umbilical hernia reducible. EXTREMITIES: 2 to 3+ edema. NEUROLOGIC: No focal deficit. LABORATORY DATA: Sodium is 137, potassium 3.5, chloride 102, bicarb 27, BUN 30, creatinine 2.2, glucose 84. WBC 4.5, hemoglobin 10.7, hematocrit 35.7, platelets 186. IMPRESSION: 1. Acute on chronic systolic dysfunction. 2. Congestive heart failure exacerbation secondary to compliance, most likely either to medication or fluid intake. PLAN: Aggressive diuresis. Continue with home medication. The patient should be able to go home within 24 to 48 hours. MD LUIS Hill/KEVIN /[id number]
--- NOTE | 2019-01-08 19:02 | NUR ---
walking rounds done and report given to night nurse.
--- NOTE | 2019-01-08 19:09 | NUR ---
Bedside report and walking rounds complete. Pt A&O and in no apparent distress. Pt on 2 L NC and tele. All safety measures ensured and pt call padron near. Pt encouraged to use call padron for assistance.
--- NOTE | 2019-01-08 22:50 | NUR ---
Pt assess since systolic BP elevated. Pt states it has been that way. No current prn meds for elevated BP. Pt states eh has some occasional pain but is ok for now. Will continue to monitor pt.
[2019-01-09 00:20] VITALS: BP 151/103
--- NOTE | 2019-01-09 02:18 | NUR ---
Walking rounds. Pt resting in bed and in no apparent distress. Asked pt if any complaints of pain or SOB and pt denied.
[2019-01-09 04:00] VITALS: BP 177/116
[2019-01-09 05:36] LABS: BASOPHILS # (AUTO) 0.1 (0.0-0.1); BASOPHILS % 1.1 % (0.0-1.0); EOSINOPHILS # (AUTO) 0.1 (0.0-0.4); EOSINOPHILS % 2.2 % (0.0-6.0); HEMATOCRIT 35.7 % (38.2-49.6); HEMOGLOBIN 10.6 g/dL (14.0-18.0); LYMPHOCYTES # (AUTO) 1.1 (1.0-3.2); LYMPHOCYTES % 21.3 % (18.0-39.1); MEAN CORPUSCULAR HEMOGLOBIN 23.9 pg (28-32); MEAN CORPUSCULAR HGB CONC 29.7 g/dL (31-35); MEAN CORPUSCULAR VOLUME 80.6 fL (81-99); MONOCYTES # (AUTO) 0.8 (0.2-0.8); MONOCYTES % 14.6 % (4.4-11.3); NEUTROPHILS # (AUTO) 3.2 (2.1-6.9); NEUTROPHILS % 60.4 % (38.7-80.0); PLATELET COUNT 198 x10e3/uL (140-360); RED BLOOD COUNT 4.43 x10e6/uL (4.3-5.7); RED CELL DISTRIBUTION WIDTH 18.4 % (11.7-14.4)
[2019-01-09 05:54] LABS: ALBUMIN 3.5 g/dL (3.5-5.0); ANION GAP 14.5 mmol/L (8-16); CALCIUM 9.2 mg/dL (8.4-10.2); CREATININE, SERUM 2.22 mg/dL (0.72-1.25); POTASSIUM 3.5 mmol/L (3.5-5.1)
--- NOTE | 2019-01-09 07:05 | NUR ---
Bedside report and walking rounds complete. Pt is resting in bed in NAD. He denies any pain, SOB or dizziness. POC discussed. Patient reminded to save all urine for strict I&0s. Tele#3, AV paced @73. Patient instructed to call for assistance as needed and verbalized understanding. Call padron within reach.
--- NOTE | 2019-01-09 07:06 | NUR ---
Bedside report and walking rounds complete.
[2019-01-09] MEDS: [UNRECOGNIZED DRUG - OTHER] PO SCH (08:36)
[2019-01-09 08:39] VITALS: BP 163/114
[2019-01-09] MEDS: FUROSEMIDE INJ 10 MG/ML 4 ML VIAL IV SCH (08:44)
[2019-01-09] MEDS: DICYCLOMINE HCL 20 MG TAB PO SCH (08:44)
[2019-01-09] MEDS: ASPIRIN 81 MG ENTERIC COATED PO SCH (08:44)
[2019-01-09] MEDS: LISINOPRIL 10 MG TAB PO SCH (08:45)
[2019-01-09] MEDS: TAMSULOSIN HCL 0.4 MG CAP PO SCH (08:45)
[2019-01-09] MEDS: FAMOTIDINE 20 MG TAB PO SCH (08:45)
[2019-01-09] MEDS: LACTULOSE SYRUP 20 GM/30 ML UDC PO SCH (08:45)
[2019-01-09] MEDS: SENNA-S TABLET PO SCH (08:45)
[2019-01-09] MEDS: POTASSIUM CHLORIDE 10MEQ EA PO SCH (08:45)
[2019-01-09] MEDS: METOLAZONE 5 MG TAB PO SCH (08:45)
[2019-01-09] MEDS: CLONIDINE HCL 0.2 MG TAB PO SCH (08:45)
[2019-01-09] MEDS ORDERED: METOLAZONE 5 MG TAB PO SCH (09:00)
[2019-01-09 10:00] VITALS: BP 140/99
[2019-01-09] MEDS ORDERED: METOLAZONE5 MG PO (10:15)
--- NOTE | 2019-01-09 10:33 | NUR ---
Patient discharged home with written instructions and prescription. Patient and son verbalized understanding. IV dc'd earlier, cath intact and small dressing applied.
--- NOTE | 2019-01-10 05:36 | Discharge Summary ---
PRIMARY CARE PHYSICIAN: Dr. Santana Snell. FINAL DIAGNOSES: Acute on chronic systolic dysfunction, congestive heart failure exacerbation. HISTORY: The patient is on observation for increase in bilateral lower extremity edema and abdominal congestion secondary to acute on chronic systolic dysfunction, congestive heart failure. The patient's ejection fraction on echocardiogram is less than 15%. He had AICD in place. Baseline congestive heart failure. The patient had fluid overload. Zaroxolyn started now as needed. The patient is stable. He is doing much better now. He did require oxygen on observation, but now he is able to breathe without oxygen. The patient is stable to be discharged home today. The patient will resume home medication. We will add on Zaroxolyn 5 mg daily as needed for increase in congestion. The patient expressed understanding on plan. MD LUIS Hill/KEVIN /[id number]
== END 2019-01-09 10:33 | disposition home or self-care (01) ==
LOC: ER 15:06 → ERHOLD 18:46 → IMCU 19:49
PROVIDERS: ADMIT Internal Medicine; ATTEND Internal Medicine
DX: I13.0 Hypertensive heart and chronic kidney disease with heart failure and stage 1 through stage 4 chronic kidney disease, or unspecified chronic kidney disease (principal); I50.43 Acute on chronic combined systolic (congestive) and diastolic (congestive) heart failure; N18.9 Chronic kidney disease, unspecified; I25.10 Atherosclerotic heart disease of native coronary artery without angina pectoris; Z95.1 Presence of aortocoronary bypass graft; Z95.810 Presence of automatic (implantable) cardiac defibrillator; J44.9 Chronic obstructive pulmonary disease, unspecified; E66.9 Obesity, unspecified; Z68.35 Body mass index [BMI] 35.0-35.9, adult; I42.9 Cardiomyopathy, unspecified; Z95.5 Presence of coronary angioplasty implant and graft; F32.9 Major depressive disorder, single episode, unspecified; E78.5 Hyperlipidemia, unspecified
CPT/HCPCS: 36415 ×3; 71045 ×2; 80048; 80053 ×2; 82550 ×2; 82553 ×2; 83880; 84484 ×2; 85025 ×3; 93005 ×2; 93306; 99284; G0378 ×3; J1940 ×4